=== PATIENT | male | born 1965 | race Caucasian/White ===

== ENCOUNTER → 2016-10-06 | Outpatient (CLI) | payer OTHER ==
[~2016-10-06] MED LIST: BACI500O61 TOPICAL; CEPH-460 PO; CYCL1TAB29 PO; METH2.5T PO; NAPR250T PO; PRED10 PO; PRED5TAB PO; TUBE5INJ2 I-DERMAL; Z.0.NO CURRENT MEDS
[2016-10-06 10:11] LABS: AUTOMATED NEUTROPHIL # 10.3 TH/MM3 (1.8-7.7); BASOPHIL # 0.1 TH/MM3 (0-0.2); BASOPHIL % 0.4 % (0.0-2.0); EOSINOPHIL # 0.1 TH/MM3 (0-0.4); EOSINOPHIL % 0.6 % (0.0-4.0); HEMATOCRIT 38.5 % (39.0-51.0); HEMO FLAGS DIFF FINAL; LYMPH % 21.1 % (9.0-44.0); LYMPHOCYTE # 3.1 TH/MM3 (1.0-4.8); MEAN CELL VOLUME 82.5 FL (80.0-100.0); MEAN CORPUSCULAR HEMOGLOBIN 27.3 PG (27.0-34.0); MEAN CORPUSCULAR HGB CONC 33.1 % (32.0-36.0); MONO % 8.7 % (0.0-8.0); NEUT % 69.2 % (16.0-70.0); PLATELET COUNT 408 TH/MM3 (150-450); RED BLOOD COUNT 4.66 MIL/MM3 (4.50-5.90); RED CELL DISTRIBUTION WIDTH 15.9 % (11.6-17.2); WHITE BLOOD COUNT 14.9 TH/MM3 (4.0-11.0)
[2016-10-06 10:46] LABS: ALKALINE PHOSPHATASE 69 U/L (45-117); ALT (GPT) 21 U/L (12-78); ANION GAP 7 MEQ/L (5-15); AST (GOT) 15 U/L (15-37); BICARBONATE 25.8 MEQ/L (21.0-32.0); BLOOD UREA NITROGEN 18 MG/DL (7-18); CHLORIDE 104 MEQ/L (98-107); GLOMERULAR FILTRATION RATE 98 ML/MIN (>89); GLUCOSE,FASTING 77 MG/DL (74-99); LDL CHOLESTEROL 70 MG/DL (0-99); POTASSIUM 3.9 MEQ/L (3.5-5.1); SODIUM (NA) 137 MEQ/L (136-145); TOTAL BILIRUBIN ADULT 0.8 MG/DL (0.2-1.0)
== END ==
LOC: CLAB 09:46
PROVIDERS: ATTEND Nurse Practitioner Family
DX: R53.83 Other fatigue (principal); M25.50 Pain in unspecified joint
CPT/HCPCS: 36415; 80053; 80061; 84443; 85025; 86038; 86140; 86430

== ENCOUNTER → 2016-10-16 | Outpatient (CLI) | payer OTHER | LOC: CLAB 11:09 | PROVIDERS: ATTEND Nurse Practitioner Family | DX: M06.9 Rheumatoid arthritis, unspecified (principal) | CPT/HCPCS: 36415; 80074; 82607; 82746 ==

== ENCOUNTER → 2016-10-22 | Outpatient (CLI) | payer OTHER ==
[~2016-10-22] MED LIST changes: -TUBE5INJ2 I-DERMAL
[2016-10-22 15:19] LABS: HEPATITIS B SURFACE ANTIBODY GREATER THAN 150 mIU/mL
== END ==
LOC: CLAB 13:06
PROVIDERS: ATTEND Nurse Practitioner Family
DX: R76.8 Other specified abnormal immunological findings in serum (principal)
CPT/HCPCS: 36415; 86317; 86704; 87340; 87350

== ENCOUNTER 2016-11-17 07:07 | Emergency (ER) | payer OTHER ==
[~2016-11-17] VITALS: Ht 172.7 cm; Wt 81.5 kg
[~2016-11-17 07:07] MED LIST changes: -BACI500O61 TOPICAL; -CEPH-460 PO; -PRED10 PO
[2016-11-17 07:09] VITALS: BP 145/77; PULSE 88; RESP 17; TEMP 98.1; O2SAT 98
[2016-11-17] MEDS ORDERED: PRED5TAB PO (07:36)
--- NOTE | 2016-11-17 07:37 | PD ---
HPI Chief Complaint: Medication Refill Request Time Seen by Provider: 07:34 Travel History International Travel<30 days: No Contact w/Intl Traveler<30days: No Traveled to known affect area: No History of Present Illness HPI 51-year-old male presents to the emergency department requesting a medication refill on prednisone 7.5 milligrams twice daily for his rheumatoid arthritis. He has been without his medication for 24 hours. He says he is flaring up and has pain all over. He is also requesting an injection for Toradol for pain. His primary care provider is Dr. Martinez at the [facility]. He says he can go straight there from here. He says he called to be seen in the clinic but nobody is returned a phone calls. He has no other medical complaints. He denies fever, chills, nausea, vomiting. Allergies to shellfish. History of rheumatoid arthritis. No other modifying factors or associated signs and symptoms. 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 No noted joints that are erythematous. No signs of septic joints. HEAD: Atraumatic. Normocephalic. EYES: Pupils equal and round. No scleral icterus. No injection or drainage. ENT: Mucosa pink and moist. Airway patent. NECK: Trachea midline. CARDIOVASCULAR: Regular rate. RESPIRATORY: No accessory muscle use. GASTROINTESTINAL: Flat. MUSCULOSKELETAL: No obvious deformities. No clubbing. No cyanosis. No edema. NEUROLOGICAL: Awake and alert. Oriented 3. No obvious cranial nerve deficits. Motor grossly within normal limits. Normal speech. PSYCHIATRIC: Appropriate mood and affect; insight and judgment normal. Data Data Last Documented VS Vital Signs Date Time Temp Pulse Resp B/P Pulse Ox O2 Delivery O2 Flow Rate FiO2 11/17/16 07:09 98.1 88 17 145/77 98 Orders Prednisone (Deltasone) (11/17/16 07:45) Ketorolac Inj (Toradol Inj) (11/17/16 07:45) [facility] Medical Decision Making Medical Screen Exam Complete: Yes Emergency Medical Condition: Yes Medical Record Reviewed: Yes Differential Diagnosis Medication refill, pain control, malingering Narrative Course 51-year-old male requesting medication refill on prednisone for rheumatoid arthritis. He's been without his medication for 24 hours and is having a flareup of pain. He is also requesting a Toradol injection. Prescribed a week' s worth of prednisone. Toradol and prednisone 10 mg ordered and administered in the ER. Prednisone 7.5 mg twice a day prescribed for home. Instructed patient to follow up with the community clinic and he verbalized understanding agreement. He says he is going straight to the community clinic after being discharged from the ER. Patient verbalizes understanding and agreement with treatment plan. Patient is medically cleared and stable for discharge. Discussed reasons to return to the emergency department. Instructed patient to follow up with primary care provider. Patient agrees with treatment plan. The patients vital signs are stable and the patient is stable for outpatient follow- up and treatment. Patient discharged home, stable and in no acute distress. Diagnosis Primary Impression: Medication refill Additional Impression: Rheumatoid arthritis Qualified Code: M06.9 - Rheumatoid arthritis, involving unspecified site, unspecified rheumatoid factor presence Referrals: Primary Care Physician Patient Instructions: General Instructions, Rheumatoid Arthritis (ED) Departure Forms: Tests/Procedures, Work Release Enter return to work date: Nov 18, 2016 Additional Instructions: Take medications as prescribed. Follow-up with primary care provider Med/Other Pt SpecificInfo: Prescription(s) given Scripts Prednisone 5 Mg Tab7.5 Mg PO BID 7 Days Ref 0 Take 1 and 1/2 tab twice a day Prov:Rima Anne 11/17/16 Disposition: 01 DISCHARGE HOME Condition: Stable Rima Anne Nov 17, 2016 07:37
[2016-11-17] MEDS ORDERED: predniSONE 10 MG TAB PO ONE (07:45)
[2016-11-17] MEDS ORDERED: KETOROLAC TROMETHAMINE 60 MG/2 ML (IM) VIAL IM ONE (07:45)
[2016-11-17] MEDS ORDERED: METH2.5T PO (09:42)
[2016-11-17] MEDS ORDERED: PRED10 PO (09:42)
[2016-12-04] MEDS ORDERED: PRED10 PO (08:45)
[2016-12-23] MEDS ORDERED: PRED10 PO (07:36)
[2017-01-06] MEDS ORDERED: PRED10 PO (08:38)
== END 2016-11-17 08:06 | disposition home or self-care (01) ==
LOC: NEPK 07:07
DX: M06.9 Rheumatoid arthritis, unspecified (principal); Z79.899 Other long term (current) drug therapy; F17.210 Nicotine dependence, cigarettes, uncomplicated
CPT/HCPCS: 96372; 99281; J1885; J7512

== ENCOUNTER → 2016-12-01 | Outpatient (CLI) | payer OTHER ==
[~2016-12-01] MED LIST changes: +BACI500O61 TOPICAL; +CEPH-460 PO; -CYCL1TAB29 PO; +PRED10 PO; -Z.0.NO CURRENT MEDS
[2016-12-01 09:12] LABS: AUTOMATED NEUTROPHIL # 15.6 TH/MM3 (1.8-7.7); BASOPHIL % 0.1 % (0.0-2.0); EOSINOPHIL % 0.1 % (0.0-4.0); HEMATOCRIT 40.4 % (39.0-51.0); HEMO FLAGS DIFF FINAL; LYMPH % 10.5 % (9.0-44.0); LYMPHOCYTE # 1.9 TH/MM3 (1.0-4.8); MEAN CELL VOLUME 82.6 FL (80.0-100.0); MEAN CORPUSCULAR HEMOGLOBIN 27.1 PG (27.0-34.0); MEAN CORPUSCULAR HGB CONC 32.8 % (32.0-36.0); MONO % 3.7 % (0.0-8.0); NEUT % 85.6 % (16.0-70.0); PLATELET COUNT 386 TH/MM3 (150-450); RED BLOOD COUNT 4.88 MIL/MM3 (4.50-5.90); RED CELL DISTRIBUTION WIDTH 16.3 % (11.6-17.2); WHITE BLOOD COUNT 18.2 TH/MM3 (4.0-11.0)
[2016-12-01 10:01] LABS: BICARBONATE 25.8 MEQ/L (21.0-32.0); POTASSIUM 4.3 MEQ/L (3.5-5.1)
== END ==
LOC: CLAB 08:43
PROVIDERS: ATTEND Nurse Practitioner Family
DX: M06.9 Rheumatoid arthritis, unspecified (principal)
CPT/HCPCS: 36415; 80048; 82607; 82746; 85025

== ENCOUNTER 2016-12-03 16:20 | Emergency (ER) | payer OTHER ==
[~2016-12-03] VITALS: Ht 172.7 cm; Wt 84.0 kg
[~2016-12-03 16:20] MED LIST changes: -BACI500O61 TOPICAL; -CEPH-460 PO
[2016-12-03 16:26] VITALS: BP 140/81; PULSE 89; RESP 15; TEMP 98.2; O2SAT 98
--- NOTE | 2016-12-03 16:43 | PD ---
HPI Chief Complaint: Injury Time Seen by Provider: 16:43 Travel History International Travel<30 days: No Contact w/Intl Traveler<30days: No Traveled to known affect area: No History of Present Illness HPI 51-year-old male presents to the emergency department for evaluation of a laceration to the posterior back of his distal right lower extremity. Patient states that he was at work when a drill fell and struck the posterior aspect of the distal right lower extremity causing a laceration. Reports mild pain at the site. Denies any focal deficits or weakness. States he is up-to-date on his tetanus vaccination. No other symptoms to report. 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 , on rehab program ) Allergies-Medications (Allergen,Severity, Reaction): Coded Allergies: Shellfish (Verified Allergy, Intermediate, 12/03/16) Reported Meds & Prescriptions Reported Meds & Active Scripts Active Bacitracin 500 Unit/Gm Oint 1 Applic TOPICAL BID Keflex (Cephalexin) 500 Mg Cap 500 Mg PO Q6H 5 Days Prednisone 10 Mg Tab 10 Mg PO BID Methotrexate 2.5 Mg Tab 7.5 Mg PO Q7D Prednisone 5 Mg Tab 7.5 Mg PO BID 7 Days Take 1 and 1/2 tab twice a day Naproxen 250 Mg Tab 250 Mg PO BID Review of Systems Except as stated in HPI: all other systems reviewed are Neg Physical Exam Narrative GENERAL: Well-nourished, well-developed patient, ambulatory no acute distress SKIN: Focused skin assessment warm/dry. 8 cm V-shaped laceration/skin flap on the posterior aspect of the right distal lower extremity. Area HEAD: Normocephalic. EYES: No scleral icterus. No injection or drainage. NECK: Supple, trachea midline. No JVD or lymphadenopathy. CARDIOVASCULAR: Regular rate and rhythm without murmurs, gallops, or rubs. RESPIRATORY: Breath sounds equal bilaterally. No accessory muscle use. MUSCULOSKELETAL: No cyanosis, or edema. Dictation intact distal extremity. No deformity. Distal pulses are palpable. BACK: Nontender without obvious deformity. No CVA tenderness. t Data Data Last Documented VS Vital Signs Date Time Temp Pulse Resp B/P Pulse Ox O2 Delivery O2 Flow Rate FiO2 12/03/16 16:26 98.2 89 15 140/81 98 Orders Lidocai-Epi 1%-1:100,000 Inj (Xylocaine- (12/03/16 16:45) MDM Medical Decision Making Medical Screen Exam Complete: Yes Emergency Medical Condition: Yes Medical Record Reviewed: Yes Differential Diagnosis Laceration superficial versus deep versus skin avulsion versus abrasion Narrative Course 51-year-old male presents to emergency department for evaluation of the laceration to the posterior aspect of the right distal lower extremity. Laceration is cleansed and approximated without difficulty. Patient will be started on oral antibiotics as he has RA and is on chronic steroids. Patient is counseled on care. He agrees to return immediately with any acute worsening of symptoms. Procedures Procedure Narrative LACERATION LOCATION: Right distal lower extremity LENGTH: 8 cm V-shaped NUMBER OF STITCHES/LAWRENCE: 5 horizontal mattress sutures REPAIR: The area of the laceration was prepped with Betadine and sterilely draped. The laceration was infiltrated with 1% lidocaine with epinephrine. The wound was copiously irrigated and explored without evidence of foreign body , tendon injury or neurovascular injury. The wound was closed using 4-0 Prolene. This was a single layer repair. A sterile dressing was applied. The patient was advised to keep the dressing clean and dry. Patient tolerated the procedure well. Diagnosis Primary Impression: Laceration of lower leg Qualified Code: S81.811A - Laceration of lower leg, right, initial encounter Referrals: Primary Care Physician Patient Instructions: General Instructions, Laceration (ED) Additional Instructions: Keep wound clean and dry Sutures are to be removed in 10-14 days. This can be done at the emergency department or at your primary care provider's office Elevate to reduce pain and swelling Tylenol and/or ibuprofen as directed on the package as needed for pain Return immediately with any acute worsening of symptoms Med/Other Pt SpecificInfo: Prescription(s) given Scripts Bacitracin 500 Unit/Gm Oint1 Applic TOPICAL BID #1 TUBE Prov:Georgia Alvarenga 12/03/16 Cephalexin (Keflex)500 Mg Acj008 Mg PO Q6H 5 Days Ref 0 Prov:Georgia Alvarenga 12/03/16 Disposition: 01 DISCHARGE HOME Condition: Stable Georgia Alvarenga Dec 03, 2016 16:43
[2016-12-03] MEDS ORDERED: LIDOCAINE 1%/EPINEPHrine 1:100,000 SOLN 20 ML VIAL INFIL ONE (16:45)
[2016-12-03] MEDS ORDERED: BACI500O61 TOPICAL (17:27)
[2016-12-03] MEDS ORDERED: CEPH-460 PO (17:27)
[2016-12-04] MEDS ORDERED: PRED10 PO (08:45)
[2016-12-23] MEDS ORDERED: PRED10 PO (07:36)
[2017-01-06] MEDS ORDERED: PRED10 PO (08:38)
== END 2016-12-03 17:45 | disposition home or self-care (01) ==
LOC: NEPD 16:20
DX: S81.811A Laceration without foreign body, right lower leg, initial encounter (principal); F17.210 Nicotine dependence, cigarettes, uncomplicated; F14.10 Cocaine abuse, uncomplicated; W29.8XXA Contact with other powered hand tools and household machinery, initial encounter; Y92.89 Other specified places as the place of occurrence of the external cause; Y99.0 Civilian activity done for income or pay
CPT/HCPCS: 12004

== ENCOUNTER 2018-01-19 02:05 | Emergency (ER) | payer OTHER ==
[~2018-01-19 02:05] MED LIST changes: -METH2.5T PO; -NAPR250T PO; +NAPR250T4 PO; -PRED5TAB PO
== END 2018-01-19 02:15 | disposition left against medical advice (07) ==
LOC: NED 02:05
DX: R09.89 Other specified symptoms and signs involving the circulatory and respiratory systems (principal)
CPT/HCPCS: 99281

== ENCOUNTER 2018-05-10 09:01 | Observation (INO) ==
--- NOTE | 2018-05-10 09:25 | ED ---
HPI General Chief Complaint: Respiratory Symptoms Stated Complaint: Sob/Abd Pain Time Seen by Provider: 05/10/18 09:09 Source: patient and EMS Mode of arrival: ambulatory Limitations: no limitations History of Present Illness 52-year-old male patient with history of rheumatoid arthritis, left arm DVT followed by PE, is supposed to be on prednisone and Eliquis but he had ran out of both about a week ago. He presents to the ER today for several days history of worsening dyspnea on exertion, shortness of breath, upper abdominal discomfort, back discomfort, and called EMS. He denies any fevers, vomiting, or other symptoms.He states that he is just feeling more generally weak. Related Data Home Medications Medication Instructions Recorded Confirmed apixaban [Eliquis] 2.5 mg PO DAILY 05/10/18 05/10/18 prednisone 15 mg PO BID 05/10/18 05/10/18 Allergies Allergy/AdvReac Type Severity Reaction Status Date / Time shellfish derived Allergy Intermediate Swelling Verified 05/10/18 09:13 Review of Systems ROS: all other systems reviewed are negative PMFSH History History Provided By: Patient Medical History Medical History Pulmonary embolism (Acute) Alcohol abuse (Acute) Cocaine abuse (Acute) DVT (deep venous thrombosis) (Acute) Depression (Acute) Heroin abuse (Acute) Septic shock (Acute) Social History Social History Substance History: Active Abuse Second Hand Smoke Exposure: Yes Smoking Status: Current every day smoker Tobacco Type: Cigarettes How Often Do You Have a Drink Containing Alcohol: 4 or more times a week Recent Travel in [facility] within the Last 8 Weeks: No Recent Out of Country Travel within the Last 8 Weeks: No Exam Narrative Exam Narrative: GENERAL: Well-developed middle-age male patient currently and moderate respiratory distress in the ER. Awake and oriented x3. SKIN: Focused skin assessment warm/dry. HEAD: Atraumatic. Normocephalic. EYES: Pupils equal and round. No scleral icterus. No injection or drainage. ENT: No nasal bleeding or discharge. Mucous membranes pink and moist. NECK: Trachea midline. No JVD. CARDIOVASCULAR: Regular rate and rhythm. No murmur appreciated. RESPIRATORY:Moderate accessory muscle use. Clear to auscultation. Breath sounds equal bilaterally. GASTROINTESTINAL: Abdomen soft, non-tender, nondistended. Hepatic and splenic margins not palpable. MUSCULOSKELETAL: No obvious deformities. No clubbing. No cyanosis. No edema. NEUROLOGICAL: Awake and alert. No obvious cranial nerve deficits. Motor grossly within normal limits. Normal speech. PSYCHIATRIC: Appropriate mood and affect; insight and judgment normal. Course Initial Documented Vital Signs Temperature 97.8 F 05/10/18 09:07 Pulse Rate 113 H 05/10/18 09:07 Respiratory Rate 28 H 05/10/18 09:07 Blood Pressure 139/99 H 05/10/18 09:07 Pulse Oximetry 98 05/10/18 09:07 Last Documented Vital Signs Temperature 97.8 F 05/10/18 09:07 Pulse Rate 113 H 05/10/18 09:07 Respiratory Rate 28 H 05/10/18 09:07 Blood Pressure 139/99 H 05/10/18 09:07 Pulse Oximetry 98 05/10/18 09:15 Medical Decision Making MDM Narrative Medical decision making narrative: Patient is tachycardic, appears to be sinus, no signs of acute ST changes. Lab work shows leukocytosis and lactate elevation , and there is concern of sepsis. IV fluids were given in the ER. Cultures are taken. And at this point, considering the the patient is not CAT scans were done to rule out PE, it did not show PE. CT the abdomen did show some signs of bladder wall thickening and there is suspicion that he may have some underlying UTI causing sepsis. Case is discussed with Dr. Jimenez for admission for further treatment. Medical Screen Exam Complete: Yes Emergency Medical Condition: Yes Differential Diagnosis Differential Diagnosis: PE versus pneumonia versus COPD exacerbation versus dysrhythmias Lab Data Lab results reviewed: Yes I reviewed the patient's lab results. Result diagrams: 05/10/18 09:14 05/10/18 09:14 Lab Results 05/10/18 05/10/18 05/10/18 Range/Units 09:14 09:14 09:14 WBC 12.8 H (4.0-11.0) th/mm3 RBC 5.15 (4.50-5.90) mil/mm3 Hgb 13.7 (13.0-17.0) gm/dL Hct 41.9 (39.0-51.0) % MCV 81.4 (80.0-100.0) fL MCH 26.5 L (27.0-34.0) pg MCHC 32.6 (32.0-36.0) % RDW 17.9 H (11.6-17.2) % Plt Count 395 (150-450) th/mm3 MPV 7.8 (7.0-11.0) fL Neut % (Auto) 66.6 (16.0-70.0) % Lymph % (Auto) 22.9 (9.0-44.0) % Castro % (Auto) 8.6 H (0.0-8.0) % Eos % (Auto) 1.2 (0.0-4.0) % Baso % (Auto) 0.7 (0.0-2.0) % Neut # (Auto) 8.5 H (1.8-7.7) th/mm3 Lymph # (Auto) 2.9 (1.0-4.8) th/mm3 Castro # (Auto) 1.1 H (0.0-0.9) th/mm3 Eos # (Auto) 0.2 (0.0-0.4) th/mm3 Baso # (Auto) 0.1 (0.0-0.2) th/mm3 WBC Differential . Differential Comment Auto diff final PT (9.8-11.6) sec INR Ratio APTT (24.3-30.1) sec D-Dimer Quant (PE/DVT) 1.78 H (0.00-0.50) mg/L FEU Sodium 135 L (136-145) meq/L Potassium 3.7 (3.5-5.1) meq/L Chloride 104 (98-107) meq/L Carbon Dioxide 21.9 (21.0-32.0) meq/L Anion Gap 9 (5-15) meq/L BUN 2 L (7-18) mg/dL Creatinine 0.68 (0.60-1.30) mg/dL Estimated GFR Greater than 89 (>89) mL/min Random Glucose 91 (74-106) mg/dL Lactic Acid (0.4-2.0) mmol/L Calcium 8.1 L (8.5-10.1) mg/dL Total Bilirubin 0.4 (0.2-1.0) mg/dL AST 14 L (15-37) U/L ALT 19 (12-78) U/L Alkaline Phosphatase 103 (45-117) U/L Troponin I Less than 0.02 L (0.02-0.05) ng/mL Total Protein 6.8 (6.4-8.2) g/dL Albumin 2.6 L (3.4-5.0) g/dL Salicylates (2.8-20.0) mg/dL Acetaminophen (10.0-30.0) mcg/mL 05/10/18 05/10/18 05/10/18 Range/Units 09:14 09:14 09:14 WBC (4.0-11.0) th/mm3 RBC (4.50-5.90) mil/mm3 Hgb (13.0-17.0) gm/dL Hct (39.0-51.0) % MCV (80.0-100.0) fL MCH (27.0-34.0) pg MCHC (32.0-36.0) % RDW (11.6-17.2) % Plt Count (150-450) th/mm3 MPV (7.0-11.0) fL Neut % (Auto) (16.0-70.0) % Lymph % (Auto) (9.0-44.0) % Castro % (Auto) (0.0-8.0) % Eos % (Auto) (0.0-4.0) % Baso % (Auto) (0.0-2.0) % Neut # (Auto) (1.8-7.7) th/mm3 Lymph # (Auto) (1.0-4.8) th/mm3 Castro # (Auto) (0.0-0.9) th/mm3 Eos # (Auto) (0.0-0.4) th/mm3 Baso # (Auto) (0.0-0.2) th/mm3 WBC Differential Differential Comment PT 10.3 (9.8-11.6) sec INR 1.0 Ratio APTT 23.1 L (24.3-30.1) sec D-Dimer Quant (PE/DVT) (0.00-0.50) mg/L FEU Sodium (136-145) meq/L Potassium (3.5-5.1) meq/L Chloride (98-107) meq/L Carbon Dioxide (21.0-32.0) meq/L Anion Gap (5-15) meq/L BUN (7-18) mg/dL Creatinine (0.60-1.30) mg/dL Estimated GFR (>89) mL/min Random Glucose (74-106) mg/dL Lactic Acid (0.4-2.0) mmol/L Calcium (8.5-10.1) mg/dL Total Bilirubin (0.2-1.0) mg/dL AST (15-37) U/L ALT (12-78) U/L Alkaline Phosphatase (45-117) U/L Troponin I (0.02-0.05) ng/mL Total Protein (6.4-8.2) g/dL Albumin (3.4-5.0) g/dL Salicylates 6.0 (2.8-20.0) mg/dL Acetaminophen Less than 2.0 L (10.0-30.0) mcg/mL 05/10/18 Range/Units 09:26 WBC (4.0-11.0) th/mm3 RBC (4.50-5.90) mil/mm3 Hgb (13.0-17.0) gm/dL Hct (39.0-51.0) % MCV (80.0-100.0) fL MCH (27.0-34.0) pg MCHC (32.0-36.0) % RDW (11.6-17.2) % Plt Count (150-450) th/mm3 MPV (7.0-11.0) fL Neut % (Auto) (16.0-70.0) % Lymph % (Auto) (9.0-44.0) % Castro % (Auto) (0.0-8.0) % Eos % (Auto) (0.0-4.0) % Baso % (Auto) (0.0-2.0) % Neut # (Auto) (1.8-7.7) th/mm3 Lymph # (Auto) (1.0-4.8) th/mm3 Castro # (Auto) (0.0-0.9) th/mm3 Eos # (Auto) (0.0-0.4) th/mm3 Baso # (Auto) (0.0-0.2) th/mm3 WBC Differential Differential Comment PT (9.8-11.6) sec INR Ratio APTT (24.3-30.1) sec D-Dimer Quant (PE/DVT) (0.00-0.50) mg/L FEU Sodium (136-145) meq/L Potassium (3.5-5.1) meq/L Chloride (98-107) meq/L Carbon Dioxide (21.0-32.0) meq/L Anion Gap (5-15) meq/L BUN (7-18) mg/dL Creatinine (0.60-1.30) mg/dL Estimated GFR (>89) mL/min Random Glucose (74-106) mg/dL Lactic Acid 2.9 H (0.4-2.0) mmol/L Calcium (8.5-10.1) mg/dL Total Bilirubin (0.2-1.0) mg/dL AST (15-37) U/L ALT (12-78) U/L Alkaline Phosphatase (45-117) U/L Troponin I (0.02-0.05) ng/mL Total Protein (6.4-8.2) g/dL Albumin (3.4-5.0) g/dL Salicylates (2.8-20.0) mg/dL Acetaminophen (10.0-30.0) mcg/mL Imaging Data Attestation: I personally reviewed and interpreted this imaging study as follows : Radiologist's impression: Chest X-Ray 05/10/18 09:09 CONCLUSION: Negative for an acute process Abdomen/Pelvis CT 05/10/18 10:37 CONCLUSION: 1. Uncomplicated colonic diverticulosis is noted. 2. Calcified nonobstructing bilateral renal calculi. 3. Thick-walled urinary bladder with right-sided bladder diverticulum. 4. Tiny calcification within left side of the urinary bladder consistent with probable bladder calculus. 5. 10 mm right renal cyst. 6. Multiple compression deformities involving the lumbar and lower thoracic spine with worst compression deformity identified at T10. 7. Degenerative changes throughout the thoracolumbar spine. 8. Multilevel spinal stenoses within the lumbar spine. 9. Small umbilical hernia containing only fat. Chest CTA 05/10/18 10:37 CONCLUSION: 1. No evidence of pulmonary embolism. 2. Minimal scattered atelectasis and/or scarring. 3. Tiny calcified granuloma within the left upper lobe. 4. Multiple compression deformities involving the thoracic spine with kyphosis of the lower thoracic spine related to the most severe compression deformity. 5. Degenerative changes throughout the thoracic spine. Discharge Plan Discharge Disposition Patient Disposition: 30 Still Patient Discharge Condition Condition: Stable Discharge Details Anticipated Discharge Date: 05/10/18 Diagnosis: Sepsis Physicians Team ED Provider: Marlyn Aguillon Primary Care Provider: UNKNOWN, Rxs /Orders / Referrals /Forms Prescriptions: No Action apixaban [Eliquis] 2.5 mg Tablet 2.5 mg PO DAILY RF: 0 prednisone 5 mg Tablet 15 mg PO BID RF: 0 Status ED Status: With Doctor
[2018-05-10 09:57] LABS: Baso # (Auto) 0.1 th/mm3 (0.0-0.2); Baso % (Auto) 0.7 % (0.0-2.0); Eos # (Auto) 0.2 th/mm3 (0.0-0.4); Eos % (Auto) 1.2 % (0.0-4.0); Hematocrit 41.9 % (39.0-51.0); Hemoglobin 13.7 gm/dL (13.0-17.0); Lymph # (Auto) 2.9 th/mm3 (1.0-4.8); Lymph % (Auto) 22.9 % (9.0-44.0); Mean Corpuscular HGB Conc 32.6 % (32.0-36.0); Mean Corpuscular Hemoglobin 26.5 pg (27.0-34.0); Mean Corpuscular Volume 81.4 fL (80.0-100.0); Mean Platelet Volume 7.8 fL (7.0-11.0); Mono # (Auto) 1.1 th/mm3 (0.0-0.9); Mono % (Auto) 8.6 % (0.0-8.0); Neut # (Auto) 8.5 th/mm3 (1.8-7.7); Neut % (Auto) 66.6 % (16.0-70.0); Platelet Count 395 th/mm3 (150-450); Red Blood Count 5.15 mil/mm3 (4.50-5.90); Red Cell Distribution Width 17.9 % (11.6-17.2); White Blood Count 12.8 th/mm3 (4.0-11.0)
--- NOTE | 2018-05-10 10:01 | XR ---
EXAM DATE: 05/10/2018 9:09 AM EDT AGE/SEX: 52 years / Male INDICATIONS: Short of breath. CLINICAL DATA: This is the patient's initial encounter. Patient reports that signs and symptoms have been present for 1 day and indicates a pain score of 0/10. MEDICAL/SURGICAL HISTORY: None. None. COMPARISON: No prior exams available for comparison. FINDINGS: A single AP view of the chest demonstrates the lungs to be symmetrically aerated without evidence of mass, infiltrate or effusion. The cardiomediastinal contours are unremarkable. Osseous structures a re intact. CONCLUSION: Negative for an acute process Electronically signed by: Satnam Bowser MD 05/10/2018 10:00 AM EDT
[2018-05-10 10:20] LABS: Alanine Aminotransferase 19 U/L (12-78); Albumin 2.6 g/dL (3.4-5.0); Anion Gap 9 meq/L (5-15); Aspartate Aminotransferase 14 U/L (15-37); Blood Urea Nitrogen 2 mg/dL (7-18); Calcium 8.1 mg/dL (8.5-10.1); Carbon Dioxide 21.9 meq/L (21.0-32.0); Chloride 104 meq/L (98-107); Glomerular Filtration Rate Greater Than 89 mL/min (>89); Glucose,Random 91 mg/dL (74-106); Potassium 3.7 meq/L (3.5-5.1); Sodium 135 meq/L (136-145)
[2018-05-10 10:24] LABS: Alkaline Phosphatase 103 U/L (45-117); Total Protein 6.8 g/dL (6.4-8.2)
[2018-05-10 10:28] LABS: Activated Partial Thrombo Time 23.1 sec (24.3-30.1); Prothrombin Time 10.3 sec (9.8-11.6)
--- NOTE | 2018-05-10 11:36 | CT ---
EXAM DATE: 05/10/2018 10:54 AM EDT AGE/SEX: 52 years / Male INDICATIONS: Bloating shortness of breath CLINICAL DATA: This is the patient's initial encounter. Patient reports that signs and symptoms have been present for 1 day and indicates a pain score of 3/10. MEDICAL/SURGICAL HISTORY: Deep venous thrombosis. Septic shock None. RADIATION DOSE: 17.16 CTDI (mGy) COMPARISON: No prior exams available for comparison. TECHNIQUE: Volumetric scanning was performed using a multi-row detector CT scanner during bolus infu justin of 74 ml Omnipaque 350 (iohexol) nonionic water-soluble contrast as a cumulative dose for multi ple exams. The data was post processed with a variety of visualization algorithms including full volu me maximum intensity projection and sliding thin slab reformation. Using automated exposure control a nd adjustment of the mA and/or kV according to patient size, radiation dose was kept as low as reason ably achievable to obtain optimal diagnostic quality images. DICOM format image data is available el ectronically for review and comparison. FINDINGS: Pulmonary Arteries: No filling defects are seen in the pulmonary arteries out to the subsegmental ve ssels. The left and right pulmonary arteries are normal in diameter. Lung: No infiltrates seen. Minimal scattered atelectasis and/or scarring is noted. Tiny calcified gr anuloma is noted within the left upper lobe. Effusion: None. Mediastinum: No evidence of mediastinal or hilar adenopathy. Other: The axilla is unremarkable. Multiple compression deformities are noted throughout the thoraci c spine. Kyphosis of the lower thoracic spine is noted. Degenerative changes are noted throughout the thoracic spine also. CONCLUSION: 1. No evidence of pulmonary embolism. 2. Minimal scattered atelectasis and/or scarring. 3. Tiny calcified granuloma within the left upper lobe. 4. Multiple compression deformities involving the thoracic spine with kyphosis of the lower thoracic spine related to the most severe compression deformity. 5. Degenerative changes throughout the thoracic spine. Electronically signed by: Wyatt Degroot MD 05/10/2018 11:34 AM EDT
--- NOTE | 2018-05-10 11:44 | CT ---
EXAM DATE: 05/10/2018 10:54 AM EDT AGE/SEX: 52 years / Male INDICATIONS: Abdomen pain distention CLINICAL DATA: This is the patient's initial encounter. Patient reports that signs and symptoms have been present for 1 day and indicates a pain score of 3/10. MEDICAL/SURGICAL HISTORY: Deep venous thrombosis. Septic shock None. ORAL CONTRAST: No oral contrast ingested. RADIATION DOSE: 10.01 CTDI (mGy) COMPARISON: No prior exams available for comparison. TECHNIQUE: Multiple contiguous axial images were obtained through the abdomen and pelvis following b olus infusion of 74 ml Omnipaque 350 (iohexol) nonionic water-soluble contrast as a single exam dos e. No oral contrast ingested. Using automated exposure control and adjustment of the mA and/or kV ac cording to patient size, radiation dose was kept as low as reasonably achievable to obtain optimal di agnostic quality images. DICOM format image data is available electronically for review and comparis on. FINDINGS: Lower Lungs: The visualized lower lungs are clear. Liver: The liver has a homogeneous density without space-occupying lesion. There is no dilation of th e biliary tree. Spleen: Homogeneous density without enlargement. Pancreas: Unremarkable without mass or calcification. Kidneys: Normal in size and shape. No evidence of mass or hydronephrosis. Calcified nonobstructing b ilateral renal calculi are noted. The largest on the left measures 6 mm and the largest on the right measures 5 mm. There is a 10 mm simple cyst within the right kidney. Adrenal Glands: Unremarkable. Aorta: The aorta and proximal iliac vessels are grossly unremarkable without aneurysmal dilation. Bowel/Mesentery: Uncomplicated colonic diverticulosis is noted. No acute diverticulitis is noted. Abdominal Wall: Small umbilical hernia containing only fat is noted. Retroperitoneum: No evidence of adenopathy in the retrocrural, para-aortic, or deep pelvic regions. Bladder: The wall of the urinary bladder is diffusely thickened. There is a bladder diverticulum ext ending from the right lateral aspect of the urinary bladder. There is a tiny calcification within the left side of the urinary bladder consistent with probable tiny calculus. Reproductive Organs: No abnormal masses or calcifications seen. Inguinal: The inguinal region is unremarkable without evidence of adenopathy. Bony Structures: Multiple compression fractures are noted throughout the lumbar and lower thoracic s pine. Most severe compression fracture is noted at T10. These are likely chronic in age. Degenerative changes are noted throughout the thoracolumbar spine. Multilevel spinal stenoses are noted within th e lumbar spine. CONCLUSION: 1. Uncomplicated colonic diverticulosis is noted. 2. Calcified nonobstructing bilateral renal calculi. 3. Thick-walled urinary bladder with right-sided bladder diverticulum. 4. Tiny calcification within left side of the urinary bladder consistent with probable bladder calcu irving. 5. 10 mm right renal cyst. 6. Multiple compression deformities involving the lumbar and lower thoracic spine with worst david justin deformity identified at T10. 7. Degenerative changes throughout the thoracolumbar spine. 8. Multilevel spinal stenoses within the lumbar spine. 9. Small umbilical hernia containing only fat. Electronically signed by: Wyatt Degroot MD 05/10/2018 11:43 AM EDT
[2018-05-10] MEDS ORDERED: Sod Chloride 0.9% Inj 1,000 ML IV.SIG SCH (12:00)
[2018-05-10 13:17] LABS: Bilirubin,Urine Negative (Negative); Clarity,Urine Clear (Clear); Color,Urine Yellow (Yellw/Straw); Glucose,Urine (UA) Negative (Negative); Leukocyte Esterase,Urine Negative (Negative); Mucus,Urine Few /lpf (Occasional); Nitrite,Urine Negative (Negative); Squamous Epithelial Cell,Urine <1 /hpf (0-5)
[2018-05-10 13:21] LABS: Amphetamine Screen,Urine Neg (Neg); Barbiturate Screen,Urine Neg (Neg); Cannabinoid Screen,Urine Neg (Neg); Cocaine Screen,Urine Pos (Neg)
[2018-05-10 13:30] LABS: Opiate Screen,Urine Neg (Neg)
[2018-05-10] MEDS ORDERED: Piperacil/Tazo 3.375 GM Premix 50 ML IV.SIG SCH (16:00)
--- NOTE | 2018-05-10 16:23 | ECG ---
Date Performed: 05/10/2018 Time Performed: 09:18:03 PTAGE: 52 years EKG: SINUS TACHYCARDIA MARKED LEFT AXIS DEVIATION ABNORMAL ECG PREVIOUS TRACING : 02/27/2018 @00.56 Since the previous tracing, no significant change noted DOCTOR: Luisito Ayers Interpretating Date/Time 05/10/2018 16:22:41
[2018-05-10] MEDS ORDERED: Bisacodyl 10 MG Supp RECTAL PRN (17:43)
[2018-05-10] MEDS: Sod Chloride 0.9% Inj 1,000 ML IV.CONT SCH (19:03)
--- NOTE | 2018-05-10 19:43 | P.HPIM ---
History of Present Illness Primary Care Physician: UNKNOWN History of Present Illness: 52-year-old male with a history of rheumatoid arthritis, chronic prednisone who presents with a one-week history of bilateral lower extremity weakness, severe constant midline back pain as well as severe constant abdominal pain with shortness of breath. He says he smoked crack 4 days ago, and was planning to lie down in the hotel room and not eat anything until he . He denies any dysuria, hematuria, fevers, chills. He did have some nausea with nonbloody vomiting 2 days ago. He's been Jay acted in the ER. CT chest negative for pulmonary embolism. Review of Systems All other systems reviewed negative except as stated in HPI PMFSH - History History Provided By: Patient - Medical History Medical History: Medical History (Last Reviewed 05/10/18 @ 18:42 by Daysi Rodríguez RN) Pulmonary embolism Alcohol abuse Cocaine abuse DVT (deep venous thrombosis) Depression Heroin abuse Septic shock - Surgical History Surgical History: Surgical History (Last Updated 05/10/18 @ 19:42 by Preston Jimenez MD) H/O knee surgery History of appendectomy History of tonsillectomy - Family History Family History: Family History (Last Updated 05/10/18 @ 19:42 by Preston Jimenez MD) Other Family history non-contributory - Tobacco History Second Hand Smoke Exposure: Yes Tobacco Use In Past 30 Days: Yes Smoking Status: Current every day smoker Tobacco Type: Cigarettes - Alcohol History How Often Do You Have a Drink Containing Alcohol: 4 or more times a week - Substance Use History Substance History: Active Abuse - Substance Use Type Alcohol Status: Active Route Used: By Mouth Reason for Use: Calm Down, Feels Good Heroin Status: Early Remission Route Used: Inhalation Reason for Use: Feels Good, Get High Crack/Cocaine Status: Active Route Used: Inhalation Frequency: Used for a few days about 4-5 days ago Reason for Use: Get High, Hurt Myself Comment: Patient states he used drugs because he is depressed. - Travel History Recent Travel in the [place] Within the Last 8 Weeks: No Recent Travel Out of the Country Within the Last 8 Weeks: No - Immunization History Tetanus Immunization: >5 Years Hx Influenza Vaccine This Season: Yes Medications and Allergies Active Medications: Active Medications Al Hydroxide/Mg Hydroxide (Milk Of Magnyaneli Liq) 30 ml PO Q12H PRN PRN Reason: Mild Constipation Apixaban (Eliquis) 2.5 mg PO DAILY [facility] Bisacodyl (Dulcolax Supp) 10 mg RECTAL DAILY PRN PRN Reason: SEVERE CONSITIPATION Sodium Chloride (Ns Inj) 1,000 mls @ 0 mls/hr IV.SIG BOLUS [facility] Last Infusion: 05/10/18 15:31 Dose: Infused Sodium Chloride (Ns Inj) 1,000 mls @ 100 mls/hr IV.CONT .Q10H [facility] Last Admin: 05/10/18 19:03 Dose: 100 mls/hr Lactulose (Lactulose Liq) 30 ml PO DAILY PRN PRN Reason: SEVERE CONSITIPATION Prednisone (Deltasone) 15 mg PO BID [facility] Stop: 05/15/18 20:59 Sennosides (Senokot) 17.2 mg PO Q12H PRN PRN Reason: Moderate Constipation Thiamine HCl (Vitamin B1) 200 mg PO BID [facility] Allergies Allergy/AdvReac Type Severity Reaction Status Date / Time shellfish derived Allergy Intermediate Swelling Verified 05/10/18 09:13 Home Medications Medication Instructions Recorded Confirmed Type apixaban [Eliquis] 2.5 mg PO DAILY 05/10/18 05/10/18 History prednisone 15 mg PO BID 05/10/18 05/10/18 History Exam Vital signs: Vital Signs 05/10/18 09:07 05/10/18 09:15 05/10/18 13:00 Temperature 97.8 F Pulse Rate 113 H 110 H Respiratory Rate 28 H 20 Blood Pressure 139/99 H 131/79 Pulse Oximetry 97 98 05/10/18 17:00 05/10/18 18:14 Temperature Pulse Rate 102 H 104 H Respiratory Rate 19 18 Blood Pressure 120/80 143/92 H Pulse Oximetry Intake & Output 05/10/18 05/10/18 05/11/18 06:59 18:59 06:59 Intake Total 1150 / 1150 Balance 1150 / 1150 Weight 72.575 kg Intake: IV 1150 / 1150 Zosyn 3.375 GM Premix 50 ML @ 50 / 50 100 mls/hr IV.SIG Q6H [facility] Rx#: [id number] NS Inj 1,000 ML @ Wide Open IV. 1000 / 1000 SIG BOLUS [facility] Rx#:[id number] Rocephin Inj 1,000 MG In NS Inj 100 / 100 100 ML @ 200 mls/hr IV.SIG ONCE ONE Rx#:[id number] Narrative: GENERAL: patient lying in bed. Appears uncomfortable. Alert and oriented 3. SKIN: Warm and dry. HEAD: Atraumatic. Normocephalic. EYES: Pupils equal and round. No scleral icterus. No injection or drainage. ENT: No nasal bleeding or discharge. Mucous membranes pink and moist. NECK: Trachea midline. No JVD. CARDIOVASCULAR: Regular rate and rhythm. RESPIRATORY: No accessory muscle use. Clear to auscultation. Breath sounds equal bilaterally. GASTROINTESTINAL: Abdomen soft, non-tender, nondistended. Hepatic and splenic margins not palpable. MUSCULOSKELETAL: Extremities without clubbing, cyanosis, or edema. No obvious deformities. NEUROLOGICAL: Awake and alert. No obvious cranial nerve deficits. Motor grossly within normal limits. Five out of 5 muscle strength in the arms and legs , however patient says he is weak.. Normal speech. PSYCHIATRIC: Appropriate mood and affect; insight and judgment normal. Results - Labs CBC & Chem 7: 05/10/18 09:14 05/10/18 09:14 Labs: Short CBC 05/10/18 Range/Units 09:14 WBC 12.8 H (4.0-11.0) th/mm3 Hgb 13.7 (13.0-17.0) gm/dL Hct 41.9 (39.0-51.0) % Plt Count 395 (150-450) th/mm3 BMP 05/10/18 09:14 Sodium 135 L Potassium 3.7 Chloride 104 Carbon Dioxide 21.9 BUN 2 L Creatinine 0.68 Calcium 8.1 L Cardiac Enzymes 05/10/18 Range/Units 09:14 Troponin I Less than 0.02 L (0.02-0.05) ng/mL Liver Function 05/10/18 Range/Units 09:14 Total Bilirubin 0.4 (0.2-1.0) mg/dL AST 14 L (15-37) U/L ALT 19 (12-78) U/L Alkaline Phosphatase 103 (45-117) U/L Albumin 2.6 L (3.4-5.0) g/dL Urine 05/10/18 Range/Units 12:25 Urine Color Yellow (Yellw/Straw) Urine Clarity Clear (Clear) Urine pH 6.0 (5.0-8.5) Ur Specific [place] 1.030 (1.002-1.035) Urine Protein Negative (Neg-Trace) mg/dL Urine Glucose (UA) Negative (Negative) mg/dL - Imaging Impressions Chest X-Ray 05/10/18 09:09 CONCLUSION: Negative for an acute process Abdomen/Pelvis CT 05/10/18 10:37 CONCLUSION: 1. Uncomplicated colonic diverticulosis is noted. 2. Calcified nonobstructing bilateral renal calculi. 3. Thick-walled urinary bladder with right-sided bladder diverticulum. 4. Tiny calcification within left side of the urinary bladder consistent with probable bladder calculus. 5. 10 mm right renal cyst. 6. Multiple compression deformities involving the lumbar and lower thoracic spine with worst compression deformity identified at T10. 7. Degenerative changes throughout the thoracolumbar spine. 8. Multilevel spinal stenoses within the lumbar spine. 9. Small umbilical hernia containing only fat. Chest CTA 05/10/18 10:37 CONCLUSION: 1. No evidence of pulmonary embolism. 2. Minimal scattered atelectasis and/or scarring. 3. Tiny calcified granuloma within the left upper lobe. 4. Multiple compression deformities involving the thoracic spine with kyphosis of the lower thoracic spine related to the most severe compression deformity. 5. Degenerative changes throughout the thoracic spine. Caprini VTE Risk Assessment Caprini VTE Risk Assessment: Moderate/High Risk (score >= 2) Caprini Risk Assessment Model: Point Value = 1 Point Value = 2 Point Value = 3 Point Value = 5 Age 41-60 Minor surgery BMI > 25 kg/m2 Swollen legs Varicose veins or History of unexplained or recurrent spontaneous Oral contraceptives or hormone replacement Sepsis (< 1 month) Serious lung disease, including pneumonia (< 1 month) Abnormal pulmonary function Acute myocardial infarction Congestive heart failure (< 1 month) History of inflammatory bowel disease Medical patient at bed rest Age 61-74 Arthroscopic surgery Major open surgery (> 45 min) Laparoscopic surgery (> 45 min) Malignancy Confined to bed (> 72 hours) Immobilizing plaster cast Central venous access Age >= 75 History of VTE Family history of VTE Factor V Leiden Prothrombin [id number] Lupus anticoagulant Anticardiolipin antibodies Elevated serum homocysteine Heparin-induced thrombocytopenia Other congenital or acquired thrombophilia Stroke (< 1 month) Elective arthroplasty Hip, pelvis, or leg fracture Acute spinal cord injury (< 1 month) Prophylaxis Regimen: Total Risk Factor Score Risk Level Prophylaxis Regimen 0-1 Low Early ambulation 2 Moderate Order ONE of the following: *Sequential Compression Device (SCD) *Heparin 5000 units SQ BID 3-4 Higher Order ONE of the following medications: *Heparin 5000 units SQ TID *Enoxaparin/Lovenox 40 mg SQ daily (WT < 150 kg, CrCl > 30 mL/min) *Enoxaparin/Lovenox 30 mg SQ daily (WT < 150 kg, CrCl > 10-29 mL/min) *Enoxaparin/Lovenox 30 mg SQ BID (WT < 150 kg, CrCl > 30 mL/min) AND/OR *Sequential Compression Device (SCD) 5 or more Highest Order ONE of the following medications: *Heparin 5000 units SQ TID (Preferred with Epidurals) *Enoxaparin/Lovenox 40 mg SQ daily (WT < 150 kg, CrCl > 30 mL/min) *Enoxaparin/Lovenox 30 mg SQ daily (WT < 150 kg, CrCl > 10-29 mL/min) *Enoxaparin/Lovenox 30 mg SQ BID (WT < 150 kg, CrCl > 30 mL/min) AND *Sequential Compression Device (SCD) Assessment and Plan - Plan //Bilateral lower extremity weakness over the past week //Multilevel compression fractures with multilevel spinal stenosis //Abdominal pain //Suspected thoracic radiculopathy = CT abdomen with some incidental findings including kidney stone, bladder diverticulum, however patient's abdominal pain is best explained by compression fractures/abdominal thoracic radiculopathy Neuro checks. We'll consult neurosurgery. //Suicidal ideation. Patient is Jay acted in the ER. Psychiatry assistance appreciated. //Shortness of breath. Likely secondary to thoracic pain. CT pulmonary angiogram negative. //Leukocytosis. 12.8 on admission. Could be secondary to pain/crack. //Lactic acidosis of 2.9 on admission. Resolved after IV fluids. Likely secondary to dehydration, malnutrition versus crack. We'll start thiamine supplementation //Rheumatoid arthritis. //Chronic prednisone use. //Suspected and adrenal insufficiency -Certainly prednisone could be cause of patient's abdominal pain as well as cause of his multilevel compression fractures. We'll restart home prednisone for now. Check cortisol prior to prednisone for suspected adrenal insufficiency //Incidental finding of bladder diverticulum. Urinalysis appears noninfectious. We'll need to follow primary care. //Cocaine abuse. Cessation counseling provided. //E-cigarette abuse. Cessation counseling provided. 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 Will restart home anticoagulation. Discussed Condition With: patient, nurse, the physician. H&P: Quality - VTE Deep Vein Thrombosis/Pulmonary Embolism Present on Admission: Yes
[2018-05-10] MEDS: predniSONE 5 MG Tablet PO SCH (20:21)
[2018-05-11] MEDS: Sod Chloride 0.9% Inj 1,000 ML IV.CONT SCH ×2 (04:37→15:56)
--- NOTE | 2018-05-11 05:36 | P.CONNS ---
History of Present Illness Service: Medicine Primary Care Provider: UNKNOWN Family Provider: No Primary Care Physician Chief Complaint: Abdominal distention, back pain on standing History of Present Illness: 52yoM found to have new T10 compression fracture in workup for abdominal distention. Has pain when standing up for prolonged period, but is able to stand and ambulate to bathroom. History of IVDA, currently on Eliquis for DVT. [facility] - History History Provided By: Patient - Medical History Medical History: Medical History (Last Reviewed 05/10/18 @ 18:42 by Daysi Rodríguez RN) Pulmonary embolism Alcohol abuse Cocaine abuse DVT (deep venous thrombosis) Depression Heroin abuse Septic shock - Surgical History Surgical History: Surgical History (Last Updated 05/10/18 @ 19:42 by Preston Jimenez MD) H/O knee surgery History of appendectomy History of tonsillectomy - Family History Family History: Family History (Last Updated 05/10/18 @ 19:42 by Preston Jimenez MD) Other Family history non-contributory - Tobacco History Second Hand Smoke Exposure: Yes Tobacco Use In Past 30 Days: Yes Smoking Status: Current every day smoker Tobacco Type: Cigarettes - Alcohol History How Often Do You Have a Drink Containing Alcohol: 4 or more times a week - Substance Use History Substance History: Active Abuse - Substance Use Type Alcohol Status: Active Route Used: By Mouth Reason for Use: Calm Down, Feels Good Heroin Status: Early Remission Route Used: Inhalation Reason for Use: Feels Good, Get High Crack/Cocaine Status: Active Route Used: Inhalation Frequency: Used for a few days about 4-5 days ago Reason for Use: Get High, Hurt Myself Comment: Patient states he used drugs because he is depressed. - Travel History Recent Travel in the [facility] Within the Last 8 Weeks: No Recent Travel Out of the Country Within the Last 8 Weeks: No - Immunization History Tetanus Immunization: >5 Years Hx Influenza Vaccine This Season: Yes Medications and Allergies Active Medications: Active Medications Al Hydroxide/Mg Hydroxide (Milk Of Magnyaneli Liq) 30 ml PO Q12H PRN PRN Reason: Mild Constipation Apixaban (Eliquis) 2.5 mg PO DAILY [facility] Bisacodyl (Dulcolax Supp) 10 mg RECTAL DAILY PRN PRN Reason: SEVERE CONSITIPATION Sodium Chloride (Ns Inj) 1,000 mls @ 0 mls/hr IV.SIG BOLUS [facility] Last Infusion: 05/10/18 15:31 Dose: Infused Sodium Chloride (Ns Inj) 1,000 mls @ 100 mls/hr IV.CONT .Q10H [facility] Last Admin: 05/11/18 04:37 Dose: 100 mls/hr Lactulose (Lactulose Liq) 30 ml PO DAILY PRN PRN Reason: SEVERE CONSITIPATION Prednisone (Deltasone) 15 mg PO BID [facility] Stop: 05/15/18 20:59 Last Admin: 05/10/18 20:21 Dose: 15 mg Sennosides (Senokot) 17.2 mg PO Q12H PRN PRN Reason: Moderate Constipation Thiamine HCl (Vitamin B1) 200 mg PO BID [facility] Last Admin: 05/10/18 20:21 Dose: 200 mg Allergies Allergy/AdvReac Type Severity Reaction Status Date / Time shellfish derived Allergy Intermediate Swelling Verified 05/10/18 09:13 Home Medications Medication Instructions Recorded Confirmed Type apixaban [Eliquis] 2.5 mg PO DAILY 05/10/18 05/10/18 History prednisone 15 mg PO BID 05/10/18 05/10/18 History Exam Vital signs: Vital Signs 05/10/18 09:07 05/10/18 09:15 05/10/18 13:00 Temperature 97.8 F Pulse Rate 113 H 110 H Respiratory Rate 28 H 20 Blood Pressure 139/99 H 131/79 Pulse Oximetry 97 98 05/10/18 17:00 05/10/18 18:14 05/10/18 20:00 Temperature 98.4 F Pulse Rate 102 H 104 H 101 H Respiratory Rate 19 18 17 Blood Pressure 120/80 143/92 H 132/90 Pulse Oximetry 98 05/11/18 00:00 05/11/18 04:00 Temperature 98.2 F 97.6 F Pulse Rate 101 H 93 H Respiratory Rate 17 18 Blood Pressure 124/81 116/75 Pulse Oximetry 96 94 L Intake & Output 05/10/18 05/10/18 05/11/18 06:59 18:59 06:59 Intake Total 1150 / 1150 1480 / 1480 Output Total 1050 / 1050 Balance 1150 / 1150 430 / 430 Weight 72.575 kg 71.2 kg Intake: IV 1150 / 1150 1000 / 1000 NS Inj 1,000 ML @ 100 mls/hr IV 1000 / 1000 .CONT .Q10H [facility] Rx#:[id number] Zosyn 3.375 GM Premix 50 ML @ 50 / 50 100 mls/hr IV.SIG Q6H [facility] Rx#: [id number] NS Inj 1,000 ML @ Wide Open IV. 1000 / 1000 SIG BOLUS [facility] Rx#:[id number] Rocephin Inj 1,000 MG In NS Inj 100 / 100 100 ML @ 200 mls/hr IV.SIG ONCE ONE Rx#:[id number] Oral 480 / 480 Output: Urine 1050 / 1050 Other: Date of Last Bowel Movement 05/09/18 Narrative: A&O x 3 CN II-XII intact Motor 5/5 UE LE strength actually tests to full bilaterally: ip, q, ham, gas, TA, EHL Intact sensation throughout no bowel/bladder complaints Results - Laboratory Findings CBC and BMP: 05/10/18 09:14 05/10/18 09:14 Abnormal lab findings: Abnormal Labs 05/10/18 05/10/18 05/10/18 09:14 09:14 09:14 WBC 12.8 H MCH 26.5 L RDW 17.9 H [place] % (Auto) 8.6 H Neut # (Auto) 8.5 H [place] # (Auto) 1.1 H APTT D-Dimer Quant (PE/DVT) 1.78 H Sodium 135 L BUN 2 L Lactic Acid Calcium 8.1 L AST 14 L Troponin I Less than 0.02 L Albumin 2.6 L Urine Mucus Acetaminophen Urine Cocaine Screen 05/10/18 05/10/18 05/10/18 09:14 09:14 09:26 WBC MCH RDW [place] % (Auto) Neut # (Auto) [place]uel # (Auto) APTT 23.1 L D-Dimer Quant (PE/DVT) Sodium BUN Lactic Acid 2.9 H Calcium AST Troponin I Albumin Urine Mucus Acetaminophen Less than 2.0 L Urine Cocaine Screen 05/10/18 05/10/18 12:25 12:25 WBC MCH RDW [place] % (Auto) Neut # (Auto) [place] # (Auto) APTT D-Dimer Quant (PE/DVT) Sodium BUN Lactic Acid Calcium AST Troponin I Albumin Urine Mucus Few H Acetaminophen Urine Cocaine Screen Pos H Assessment and Plan - Plan 52yoM with new T10 compression fracture with wedge deformity, prolonged back pain on standing, abdominal distention, on eliquis for DVT. Recommend trial of bracing (TLSO). If patient is unable to tolerate the brace or back pain persists despite brace, may need surgical intervention. Is at risk given comorbid conditions. MRI T and L-spine could be obtained. F/u with Dr. [facility] to follow his progress with the brace.
[2018-05-11 07:25] LABS: Baso % (Auto) 0.3 % (0.0-2.0); Eos % (Auto) 0.2 % (0.0-4.0); Hematocrit 36.7 % (39.0-51.0); Lymph # (Auto) 1.8 th/mm3 (1.0-4.8); Lymph % (Auto) 22.4 % (9.0-44.0); Mean Corpuscular HGB Conc 32.7 % (32.0-36.0); Mean Corpuscular Hemoglobin 26.5 pg (27.0-34.0); Mean Platelet Volume 7.9 fL (7.0-11.0); Mono # (Auto) 0.4 th/mm3 (0.0-0.9); Mono % (Auto) 4.9 % (0.0-8.0); Neut # (Auto) 5.8 th/mm3 (1.8-7.7); Neut % (Auto) 72.2 % (16.0-70.0); Platelet Count 371 th/mm3 (150-450); Red Blood Count 4.53 mil/mm3 (4.50-5.90); Red Cell Distribution Width 17.7 % (11.6-17.2)
[2018-05-11 07:46] LABS: Alanine Aminotransferase 14 U/L (12-78); Albumin 2.2 g/dL (3.4-5.0); Anion Gap 9 meq/L (5-15); Aspartate Aminotransferase 10 U/L (15-37); Blood Urea Nitrogen 2 mg/dL (7-18); Calcium 7.7 mg/dL (8.5-10.1); Carbon Dioxide 23.2 meq/L (21.0-32.0); Chloride 109 meq/L (98-107); Glomerular Filtration Rate Greater Than 89 mL/min (>89); Glucose,Random 100 mg/dL (74-106); Potassium 4.1 meq/L (3.5-5.1); Sodium 141 meq/L (136-145)
[2018-05-11 07:49] LABS: Alkaline Phosphatase 83 U/L (45-117); Total Protein 5.8 g/dL (6.4-8.2)
[2018-05-11] MEDS: predniSONE 5 MG Tablet PO SCH ×2 (08:42→20:36)
--- NOTE | 2018-05-11 09:42 | MR ---
EXAM DATE: 05/11/2018 7:55 AM EDT AGE/SEX: 52 years / Male INDICATIONS: Fracture. Weakness. CLINICAL DATA: This is the patient's subsequent encounter. Patient reports that signs and symptoms h ave been present for 2 days and indicates a pain score of 5/10. MEDICAL/SURGICAL HISTORY: Deep venous thrombosis. Appendectomy. Tonsillectomy. Thrombectomy le ft arm. Rt knee arthroscopy. COMPARISON: No prior exams available for comparison. TECHNIQUE: Multiplanar, multisequence MRI of the thoracic spine was performed. FINDINGS: Vertebrae: Multiple chronic compression deformities are noted within the thoracic spine with severe c ompression fracture at T10, moderate to severe compression fractures at T11 and T8, moderate compress ion fracture at T9 and mild compression fractures at T5, T6, T7, and T12. Mild to moderate compressio n fractures are also noted involving L1 and L2. No acute compression deformity is noted. Alignment: Normal. Cord: Normal position and configuration. T1-T2: The thecal sac has a normal diameter. No evidence of disc bulge or protrusion. T2-T3: The thecal sac has a normal diameter. No evidence of disc bulge or protrusion. T3-T4: The thecal sac has a normal diameter. No evidence of disc bulge or protrusion. T4-T5: The thecal sac has a normal diameter. No evidence of disc bulge or protrusion. T5-T6: The thecal sac has a normal diameter. No evidence of disc bulge or protrusion. T6-T7: The thecal sac has a normal diameter. No evidence of disc bulge or protrusion. T7-T8: The thecal sac has a normal diameter. No evidence of disc bulge or protrusion. T8-T9: The thecal sac has a normal diameter. No evidence of disc bulge or protrusion. T9-T10: There is grade I retrolisthesis of T10 relation to T9. Minimal effacement of the anterior th ecal sac is noted related to posterior osteophytic ridging. No spinal stenosis or neuroforaminal narr owing is noted. T10-T11: Mild spinal stenosis is noted secondary to diffuse disc osteophyte complex and grade I retr olisthesis of T10 in relation to T11. T11-T12: The thecal sac has a normal diameter. No evidence of disc bulge or protrusion. T12-L1: The thecal sac has a normal diameter. No evidence of disc bulge or protrusion. CONCLUSION: 1. Multiple chronic compression deformities are noted within the thoracic spine with severe compress ion fracture at T10, moderate to severe compression fractures at T11 and T8, moderate compression fra cture at T9 and mild compression fractures at T5, T6, T7, and T12. Mild to moderate compression fract ures are also noted involving L1 and L2. No acute compression deformity is noted. 2. Mild spinal stenosis at T10-11, L1-2 and L2-3. 3. Grade I retrolisthesis of T10 relation to T9 and T11. Electronically signed by: Wyatt Degroot MD 05/11/2018 9:41 AM EDT
--- NOTE | 2018-05-11 14:22 | P.CONPSY ---
<Victor Hugo Boyd - Last Filed: 05/11/18 13:27> Provisional Diagnosis Admission Date: May 10, 2018 17:43 History of Present Illness Reason for Consult: Misty Act - Suicidal Ideation Primary Care Provider: UNKNOWN Family Provider: No Primary Care Physician Chief Complaint: Suicidal Ideation, Substance Abuse History of Present Illness: Mr. 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 He reports that 5-6 days ago he used crack cocaine and ingested "a handful of pills and drank 3-4 tall boy beers" with the intent of committing suicide due to depression. He states that he was unconscious most of the time and was discovered by the manager organizational who called EMS at the patients request due to intense abdominal/chest pain in addition to "the fact I hadn't yet and what I tried wasn't working". He was worked up in ED for PE/DVT, Abdominal Pain, Back Pain, and Bilateral LE Weakness. Misty Act was placed due to reports of suicidal ideation. He states that he is "very depressed and feels all alone" as his recently left him, his mother (whom he was living with) was placed in an NAA, all 5 of his children live in [facility], and he can no longer work due vertebral fractures. He began using Marijuana at a young age which evolved into EtOH, crack cocaine, heroin, and IV Dilaudid over the years. He states that he uses crack cocaine to "get back to baseline" and heroin/Dilaudid for his chronic pain. He was hospitalized at [facility] for a previous suicide attempt 3-4yrs ago via overdose of pain pills during a depressive episode after which he was diagnosed with Bipolar I and successfully detoxed and treated for psych disorders for about 2yrs. He d/c his psych meds 1.5yrs ago stating "I thought I was better" and began using illicit drugs again in July 2017. He states that his mood often fluctuates between manic and depression where he "feels like a failure, because I can't work, I'm all alone, and I can't even kill myself." He endorses a hx of auditory and visual hallucinations. He denies tactile hallucinations or withdrawal symptoms at this time. He denies any fever, chills, night sweats, chest pain, sob, sleepiness, changes in sleep, or changes in defecation/ urination. He states that he was once told that he had Hepatitis B but denies Hep C, HIV/AIDS, or TB. He states that he knows he shouldn't kill himself and that his family loves him but he doesn't want them to see him like this. He states that he wants help for his drug addiction, suicidal ideation, and psychiatric problems. He is concerned that if he is all alone that he will try to kill himself again but denies wanting to cause harm to anyone else. Review of Systems All other systems reviewed negative except as stated in HPI Constitutional: Reports weakness Comments: Bilateral LE Weakness Gastrointestinal: Reports abdominal pain Musculoskeletal: Reports back pain, Reports body aches, Reports joint pain, Reports stiffness Psychiatric: Reports behavioral changes, Reports depression, Reports hearing things others do not hear, Reports hopelessness, Reports irritability, Reports lack of enjoyment, Reports mood swings, Reports paranoia, Reports seeing things others do not see, Reports thoughts of hurting/killing yourself PMFSH - History History Provided By: Patient - Medical History Medical History: Medical History (Last Reviewed 05/10/18 @ 18:42 by Daysi Rodríguez RN) Pulmonary embolism Alcohol abuse Cocaine abuse DVT (deep venous thrombosis) Depression Heroin abuse Septic shock - Surgical History Surgical History: Surgical History (Last Updated 05/10/18 @ 19:42 by Preston Jimenez MD) H/O knee surgery History of appendectomy History of tonsillectomy - Family History Family History: Family History (Last Updated 05/10/18 @ 19:42 by Preston Jimenez MD) Other Family history non-contributory - Tobacco History Second Hand Smoke Exposure: Yes Tobacco Use In Past 30 Days: Yes Smoking Status: Current every day smoker Tobacco Type: Cigarettes - Alcohol History How Often Do You Have a Drink Containing Alcohol: 4 or more times a week - Substance Use History Substance History: Active Abuse - Substance Use Type Alcohol Status: Active Route Used: By Mouth Reason for Use: Calm Down, Feels Good Heroin Status: Early Remission Route Used: Inhalation Reason for Use: Feels Good, Get High Crack/Cocaine Status: Active Route Used: Inhalation Frequency: Used for a few days about 4-5 days ago Reason for Use: Get High, Hurt Myself Comment: Patient states he used drugs because he is depressed. - Travel History Recent Travel in the [place] Within the Last 8 Weeks: No Recent Travel Out of the Country Within the Last 8 Weeks: No - Immunization History Tetanus Immunization: >5 Years Hx Influenza Vaccine This Season: Yes Medications and Allergies Allergies Allergy/AdvReac Type Severity Reaction Status Date / Time shellfish derived Allergy Intermediate Swelling Verified 05/10/18 09:13 Home Medications Medication Instructions Recorded Confirmed Type apixaban [Eliquis] 2.5 mg PO DAILY 05/10/18 05/10/18 History prednisone 15 mg PO BID 05/10/18 05/10/18 History Active Medications: Active Medications Al Hydroxide/Mg Hydroxide (Milk Of Magnesia Liq) 30 ml PO Q12H PRN PRN Reason: Mild Constipation Apixaban (Eliquis) 2.5 mg PO DAILY FORMERLY [facility], [facility]1983 Last Admin: 05/11/18 08:42 Dose: 2.5 mg Bisacodyl (Dulcolax Supp) 10 mg RECTAL DAILY PRN PRN Reason: SEVERE CONSITIPATION Sodium Chloride (Ns Inj) 1,000 mls @ 0 mls/hr IV.SIG BOLUS FORMERLY [facility], [facility]–1983 Last Infusion: 05/10/18 15:31 Dose: Infused Sodium Chloride (Ns Inj) 1,000 mls @ 100 mls/hr IV.CONT .Q10H FORMERLY [facility], [facility]–1983 Last Admin: 05/11/18 04:37 Dose: 100 mls/hr Lactulose (Lactulose Liq) 30 ml PO DAILY PRN PRN Reason: SEVERE CONSITIPATION Prednisone (Deltasone) 15 mg PO BID FOR[facility]LY [facility], [facility]1983 Stop: 05/15/18 20:59 Last Admin: 05/11/18 08:42 Dose: 15 mg Sennosides (Senokot) 17.2 mg PO Q12H PRN PRN Reason: Moderate Constipation Thiamine HCl (Vitamin B1) 200 mg PO BID FOR[facility]LY [facility], [facility] Last Admin: 05/11/18 08:42 Dose: 200 mg Exam Vital signs: Vital Signs 05/10/18 17:00 05/10/18 18:14 05/10/18 20:00 Temperature 98.4 F Pulse Rate 102 H 104 H 101 H Respiratory Rate 19 18 17 Blood Pressure 120/80 143/92 H 132/90 Pulse Oximetry 98 05/11/18 00:00 05/11/18 04:00 05/11/18 05:40 Temperature 98.2 F 97.6 F Pulse Rate 101 H 93 H 86 Respiratory Rate 17 18 Blood Pressure 124/81 116/75 Pulse Oximetry 96 94 L 05/11/18 07:59 05/11/18 08:00 05/11/18 09:00 Temperature 97.8 F Pulse Rate 102 H 88 Respiratory Rate 20 Blood Pressure 128/86 Pulse Oximetry 96 96 05/11/18 12:00 Temperature Pulse Rate 85 Respiratory Rate Blood Pressure Pulse Oximetry Intake & Output 05/10/18 05/11/18 05/11/18 18:59 06:59 18:59 Intake Total 1150 / 1150 1480 / 1480 Output Total 1050 / 1050 Balance 1150 / 1150 430 / 430 Weight 72.575 kg 71.2 kg Intake: IV 1150 / 1150 1000 / 1000 NS Inj 1,000 ML @ 100 mls/hr IV 1000 / 1000 .CONT .Q10H EUGENIA Rx#:[id number] Zosyn 3.375 GM Premix 50 ML @ 50 / 50 100 mls/hr IV.SIG Q6H EUGENIA Rx#: [id number] NS Inj 1,000 ML @ Wide Open IV. 1000 / 1000 SIG BOLUS EUGENIA Rx#:[id number] Rocephin Inj 1,000 MG In NS Inj 100 / 100 100 ML @ 200 mls/hr IV.SIG ONCE ONE Rx#:[id number] Oral 480 / 480 Output: Urine 1050 / 1050 Other: Date of Last Bowel Movement 05/09/18 - Constitutional mild distress (Tearful, Emotional), average body habitus, cooperative, somnolent - Routine HEENT Exam Head: Present: normocephalic, atraumatic - Routine Neurological Exam Present: alert, oriented X3 - Routine Psychiatric Exam Present: normal thought process, suicidal ideation, cooperative, good insight, depressed Comments: Judgement - Improving - Detailed Psychiatric Exam Mood and affect: Present: tearful Mental Status Examination Appearance: Appropriate (Hospital gown, unshaven, good posture, just returned from MRI, sitter in room) Consciousness: Alert Orientation: x4 Speech: Unremarkable Language: Adequate Fund of Knowledge: Adequate Attention and Concentration: Adequate (good eye contact) Memory: Recent (intact), Remote (intact) Mood: Sad ("I'm all tore up. I don't want to be alone.") Affect: Sad (Tearful, Emotional during interview) Thought Process & Associations: Intact, Logical, Goal directed, Linear Thought Content: Preoccupations (+ SI, - HI, - Obsessions/Compulsions) Hallucination Type: None (HX of Visual/Auditory Hallucinations, but none at this moment) Delusion Type: Paranoid (Pt reports hx of paranoia ) Suicidal Ideation: Yes Suicidal Plan: No (Pt States "I find myself looking around the room for something I could use to kill myself with often") Suicidal Intention: Yes Homicidal Ideation: No (Pt states "I don't want anyone else to get hurt, just myself.") Homicidal Plan: No Homicidal Intention: No Insight: Adequate Judgment: Impulsive Mental Status Exam Remarks: MMSE Performed: - 3/3 Recall (Immediate and Delayed) - 2/2 Abstraction - x4 Orientation - Normal Clock Draw Assessment and Plan - Plan Plan: Estimated LOS: [] days <Moshe Allen - Last Filed: 05/11/18 14:44> Provisional Diagnosis Admission Date: May 10, 2018 17:43 [place].: Bipolar depression, r/o substance-induced mood disorder, cocaine and heroine use disorder [place].: Deferred [place] III.: DVT, PE, RA, umbilical hernia, vertebral Fx History of Present Illness Service: Medicine Primary Care Provider: UNKNOWN Family Provider: No Primary Care Physician History of Present Illness: H&P has been written by medical student Victor Hugo Boyd, reviewed by and edited me. [facility] - Medical History Medical History: Medical History (Last Reviewed 05/10/18 @ 18:42 by Daysi Rodríguez RN) Pulmonary embolism Alcohol abuse Cocaine abuse DVT (deep venous thrombosis) Depression Heroin abuse Septic shock - Surgical History Surgical History: Surgical History (Last Updated 05/10/18 @ 19:42 by Preston Jimenez MD) H/O knee surgery History of appendectomy History of tonsillectomy - Family History Family History: Family History (Last Updated 05/10/18 @ 19:42 by Preston Jimenez MD) Other Family history non-contributory Medications and Allergies Active Medications: Active Medications Al Hydroxide/Mg Hydroxide (Milk Of Magnesia Liq) 30 ml PO Q12H PRN PRN Reason: Mild Constipation Apixaban (Eliquis) 2.5 mg PO DAILY [facility], [facility] Last Admin: 05/11/18 08:42 Dose: 2.5 mg Bisacodyl (Dulcolax Supp) 10 mg RECTAL DAILY PRN PRN Reason: SEVERE CONSITIPATION Sodium Chloride (Ns Inj) 1,000 mls @ 0 mls/hr IV.SIG BOLUS [facility], [facility] Last Infusion: 05/10/18 15:31 Dose: Infused Sodium Chloride (Ns Inj) 1,000 mls @ 100 mls/hr IV.CONT .Q10H [facility], [facility] Last Admin: 05/11/18 04:37 Dose: 100 mls/hr Lactulose (Lactulose Liq) 30 ml PO DAILY PRN PRN Reason: SEVERE CONSITIPATION Prednisone (Deltasone) 15 mg PO BID [facility] Stop: 05/15/18 20:59 Last Admin: 05/11/18 08:42 Dose: 15 mg Sennosides (Senokot) 17.2 mg PO Q12H PRN PRN Reason: Moderate Constipation Thiamine HCl (Vitamin B1) 200 mg PO BID [facility], [facility] Last Admin: 05/11/18 08:42 Dose: 200 mg Exam Vital signs: Vital Signs 05/10/18 17:00 05/10/18 18:14 05/10/18 20:00 Temperature 98.4 F Pulse Rate 102 H 104 H 101 H Respiratory Rate 19 18 17 Blood Pressure 120/80 143/92 H 132/90 Pulse Oximetry 98 05/11/18 00:00 05/11/18 04:00 05/11/18 05:40 Temperature 98.2 F 97.6 F Pulse Rate 101 H 93 H 86 Respiratory Rate 17 18 Blood Pressure 124/81 116/75 Pulse Oximetry 96 94 L 05/11/18 07:59 05/11/18 08:00 05/11/18 09:00 Temperature 97.8 F Pulse Rate 102 H 88 Respiratory Rate 20 Blood Pressure 128/86 Pulse Oximetry 96 96 05/11/18 12:00 Temperature Pulse Rate 85 Respiratory Rate Blood Pressure Pulse Oximetry Intake & Output 05/10/18 05/11/18 05/11/18 18:59 06:59 18:59 Intake Total 1150 / 1150 1480 / 1480 Output Total 1050 / 1050 Balance 1150 / 1150 430 / 430 Weight 72.575 kg 71.2 kg Intake: IV 1150 / 1150 1000 / 1000 NS Inj 1,000 ML @ 100 mls/hr IV 1000 / 1000 .CONT .Q10H EUGENIA Rx#:[id number] Zosyn 3.375 GM Premix 50 ML @ 50 / 50 100 mls/hr IV.SIG Q6H EUGENIA Rx#: [id number] NS Inj 1,000 ML @ Wide Open IV. 1000 / 1000 SIG BOLUS EUGENIA Rx#:[id number] Rocephin Inj 1,000 MG In NS Inj 100 / 100 100 ML @ 200 mls/hr IV.SIG ONCE ONE Rx#:[id number] Oral 480 / 480 Output: Urine 1050 / 1050 Other: Date of Last Bowel Movement 05/09/18 Assessment and Plan - Assessment (1) Bipolar depression Code(s): F31.30 - Bipolar disorder, current episode depressed, mild or moderate severity, unspecified Status: Acute - Plan Plan: Estimated LOS: [] days On my psychiatric evaluation today I find a patient that presents objectively depressed, tearful throughout the interview, he seems to be fragile and vulnerable at times, he reports that he has been having symptoms of depression for at least 3 weeks, he describes his depression as an increased sense of hopelessness, helplessness, worthlessness, increased sensitivity to rejection, frustration, increased anxiety, increased use of recreational activating drugs, such as cocaine, persistent suicidal ideation without any specific plan. The patient reports as acute stressors, sense of abandonment by his family and friends, inability to work, decreased functionality, untreated medical conditions, noncompliance with psychotropics, increase recreational drug use, but at the same time he reports protective factors for suicidality such as the love of his family and rastafarian belief. This is a patient with a psychiatric history of depression, bipolar disorder, previous psychiatric hospitalizations, self harming and suicidal attempts in the past, heroine and cocaine use disorder , poor impulse control, poor coping skills, and he has an increased risk of danger to self at this moment. The patient really benefit of psychiatric admission for stabilization and safety. Continue one-to-one in the medical floor. We will start Seroquel 25 mg twice daily for bipolar depression and to help the patient with impulsivity and anxiety. Patient may benefit of a low dose of benzodiazepine, but will be addressed in inpatient psychiatry. Patient also can benefit of long-term comprehensive rehabilitation program to be explore as an inpatient psychiatry too. Extensive support, motivation and psychoeducation provided. Patient will be transferred to psychiatry once medically stable. Justification for Continued Inpatient Stay: Patient will be admitted in psychiatry.
--- NOTE | 2018-05-11 17:31 | P.PNIM ---
Subjective Interval history: Better today. Still with continued severe back pain. Denies any chest pain or shortness of breath. Says he feels comfortable going to psychiatry rodriguez today. Physical Exam Vital signs: Vital Signs 05/10/18 18:14 05/10/18 20:00 05/11/18 00:00 Temperature 98.4 F 98.2 F Pulse Rate 104 H 101 H 101 H Respiratory Rate 18 17 17 Blood Pressure 143/92 H 132/90 124/81 Pulse Oximetry 98 96 05/11/18 04:00 05/11/18 05:40 05/11/18 07:59 Temperature 97.6 F Pulse Rate 93 H 86 Respiratory Rate 18 Blood Pressure 116/75 Pulse Oximetry 94 L 96 05/11/18 08:00 05/11/18 09:00 05/11/18 12:00 Temperature 97.8 F 97.7 F Pulse Rate 102 H 88 81 Respiratory Rate 20 20 Blood Pressure 128/86 145/86 H Pulse Oximetry 96 98 Intake & Output 05/10/18 05/11/18 05/11/18 18:59 06:59 18:59 Intake Total 1150 / 1150 1480 / 1480 1000 / 1000 Output Total 1050 / 1050 Balance 1150 / 1150 430 / 430 1000 / 1000 Weight 72.575 kg 71.2 kg Intake: IV 1150 / 1150 1000 / 1000 1000 / 1000 NS Inj 1,000 ML @ 100 mls/hr IV 1000 / 1000 1000 / 1000 .CONT .Q10H EUGENIA Rx#:[id number] Zosyn 3.375 GM Premix 50 ML @ 50 / 50 100 mls/hr IV.SIG Q6H EUGENIA Rx#: [id number] NS Inj 1,000 ML @ Wide Open IV. 1000 / 1000 SIG BOLUS EUGENIA Rx#:[id number] Rocephin Inj 1,000 MG In NS Inj 100 / 100 100 ML @ 200 mls/hr IV.SIG ONCE ONE Rx#:[id number] Oral 480 / 480 Output: Urine 1050 / 1050 Other: Date of Last Bowel Movement 05/09/18 Results - Labs CBC & Chem 7: 05/11/18 05:54 05/11/18 05:55 Laboratory Results - last 24 hr 05/10/18 05/11/18 05/11/18 20:34 05:54 05:55 WBC 8.0 RBC 4.53 Hgb 12.0 L Hct 36.7 L MCV 81.0 MCH 26.5 L MCHC 32.7 RDW 17.7 H Plt Count 371 MPV 7.9 Neut % (Auto) 72.2 H Lymph % (Auto) 22.4 Elbert % (Auto) 4.9 Eos % (Auto) 0.2 Baso % (Auto) 0.3 Neut # (Auto) 5.8 Lymph # (Auto) 1.8 Elbert # (Auto) 0.4 Eos # (Auto) 0.0 Baso # (Auto) 0.0 WBC Differential . Differential Comment Auto diff final Sodium 141 Potassium 4.1 Chloride 109 H Carbon Dioxide 23.2 Anion Gap 9 BUN 2 L Creatinine 0.44 L Estimated GFR Greater than 89 Random Glucose 100 Calcium 7.7 L Total Bilirubin 0.2 AST 10 L ALT 14 Alkaline Phosphatase 83 Total Protein 5.8 L D Albumin 2.2 L Cortisol 8.4 Microbiology 05/10/18 09:25 Blood - Peripheral Aerobic Blood Culture - Preliminary No growth in 1 day 05/10/18 09:25 Blood - Peripheral Anaerobic Blood Culture - Preliminary No growth in 1 day 05/10/18 09:15 Blood - Peripheral Aerobic Blood Culture - Preliminary No growth in 1 day 05/10/18 09:15 Blood - Peripheral Anaerobic Blood Culture - Preliminary No growth in 1 day - Imaging Impressions Thoracic Spine MRI 05/11/18 00:00 CONCLUSION: 1. Multiple chronic compression deformities are noted within the thoracic spine with severe compression fracture at T10, moderate to severe compression fractures at T11 and T8, moderate compression fracture at T9 and mild compression fractures at T5, T6, T7, and T12. Mild to moderate compression fractures are also noted involving L1 and L2. No acute compression deformity is noted. 2. Mild spinal stenosis at T10-11, L1-2 and L2-3. 3. Grade I retrolisthesis of T10 relation to T9 and T11. Assessment and Plan - Plan //Bilateral lower extremity weakness over the past week //Multilevel compression fractures with multilevel spinal stenosis //Abdominal pain //Suspected thoracic radiculopathy = CT abdomen with some incidental findings including kidney stone, bladder diverticulum, however patient's abdominal pain is best explained by compression fractures/abdominal thoracic radiculopathy Neuro checks. We'll consult neurosurgery. = Appreciate neurosurgery assistance. Multilevel compression fractures of the spine. TLSO brace ordered. //Suicidal ideation. Patient is Jay acted in the ER. Psychiatry assistance appreciated. = Psychiatry has evaluated the patient. Will transfer to inpatient psychiatry stable. //Shortness of breath. Likely secondary to thoracic pain. CT pulmonary angiogram negative. = Resolved. Was likely secondary to crack. //Leukocytosis. 12.8 on admission. Could be secondary to pain/crack. = Resolved. //Tiny calcified granuloma in left upper lobe. No evidence of active respiratory infection. //Lactic acidosis of 2.9 on admission. Resolved after IV fluids. Likely secondary to dehydration, malnutrition versus crack. We'll start thiamine supplementation //Rheumatoid arthritis. //Chronic prednisone use. //Suspected and adrenal insufficiency -Certainly prednisone could be cause of patient's abdominal pain as well as cause of his multilevel compression fractures. We'll restart home prednisone for now. Check cortisol prior to prednisone for suspected adrenal insufficiency = Cortisol within normal limits yesterday, however likely adrenal insufficiency. Patient reports being on prednisone twice daily for 2 years, and says he felt bad over the past few days when he discontinued it. We will start back on prednisone, plan for slow taper as outpatient. //Incidental finding of bladder diverticulum. Urinalysis appears noninfectious. We'll need to follow primary care. //Cocaine abuse. Cessation counseling provided. //E-cigarette abuse. Cessation counseling provided. 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 Will restart home anticoagulation. Discharge Planning: Please discharged to psychiatry tomorrow morning after patient receives TLSO brace
[2018-05-11] MEDS: Acetaminophen 325 MG Tablet PO PRN (20:35)
[2018-05-12 00:09] VITALS: RESP 18
[2018-05-12] MEDS: Sod Chloride 0.9% Inj 1,000 ML IV.CONT SCH ×3 (01:55→12:00)
[2018-05-12] MEDS: predniSONE 5 MG Tablet PO SCH (08:11)
[2018-05-12] MEDS: Acetaminophen 325 MG Tablet PO PRN (08:15)
[2018-05-12 08:31] VITALS: O2SAT 98
--- NOTE | 2018-05-12 11:21 | P.PNIM ---
Subjective Interval history: He says he is feeling well. Denies any chest pain shortness of breath. Physical Exam Vital signs: Vital Signs 05/11/18 12:00 05/11/18 16:00 05/11/18 20:00 Temperature 97.7 F 97.9 F 97.4 F L Pulse Rate 81 95 H 81 Respiratory Rate 20 20 20 Blood Pressure 145/86 H 129/63 123/84 Pulse Oximetry 98 97 96 05/12/18 00:00 05/12/18 04:00 05/12/18 08:00 Temperature 98.1 F 96.3 F L 97.5 F L Pulse Rate 85 79 83 Respiratory Rate 18 18 18 Blood Pressure 117/67 125/67 153/71 H Pulse Oximetry 97 92 L 98 Intake & Output 05/11/18 05/12/18 05/12/18 18:59 06:59 18:59 Intake Total 1360 / 1360 2200 / 2200 1000 / 1000 Output Total 1900 / 1900 1100 / 1100 Balance -540 / -540 1100 / 1100 1000 / 1000 Weight 71.6 kg Intake: IV 1000 / 1000 1000 / 1000 1000 / 1000 NS Inj 1,000 ML @ 100 mls/hr IV 1000 / 1000 1000 / 1000 1000 / 1000 .CONT .Q10H EUGENIA Rx#:[id number] Oral 360 / 360 1200 / 1200 Output: Urine 1900 / 1900 1100 / 1100 Other: # Bowel Movements 1 Narrative: GENERAL: Patient sitting in bed. Appears comfortable. Alert and oriented x3. SKIN: Warm and dry. HEAD: Normocephalic. EYES: No scleral icterus. No injection or drainage. NECK: Supple, trachea midline. No JVD. CARDIOVASCULAR: Regular rate and rhythm without murmurs, gallops, or rubs. RESPIRATORY: Breath sounds equal bilaterally. No accessory muscle use. GASTROINTESTINAL: Abdomen soft, non-tender, nondistended. MUSCULOSKELETAL: No cyanosis, or edema. BACK: Nontender without obvious deformity. No CVA tenderness. Results - Labs CBC & Chem 7: 05/11/18 05:54 05/11/18 05:55 Microbiology 05/10/18 09:25 Blood - Peripheral Aerobic Blood Culture - Preliminary No growth in 2 days 05/10/18 09:25 Blood - Peripheral Anaerobic Blood Culture - Preliminary No growth in 2 days 05/10/18 09:15 Blood - Peripheral Aerobic Blood Culture - Preliminary No growth in 2 days 05/10/18 09:15 Blood - Peripheral Anaerobic Blood Culture - Preliminary No growth in 2 days Assessment and Plan - Plan //Bilateral lower extremity weakness over the past week //Multilevel compression fractures with multilevel spinal stenosis //Abdominal pain //Suspected thoracic radiculopathy = CT abdomen with some incidental findings including kidney stone, bladder diverticulum, however patient's abdominal pain is best explained by compression fractures/abdominal thoracic radiculopathy Neuro checks. We'll consult neurosurgery. = Appreciate neurosurgery assistance. Multilevel compression fractures of the spine. TLSO brace ordered. == Follow-up with neurosurgery as outpatient. Appreciate assistance. //Suicidal ideation. Patient is Jay acted in the ER. Psychiatry assistance appreciated. = Psychiatry has evaluated the patient. Will transfer to inpatient psychiatry stable. = Discharged to psychiatry once TLSO brace is fitted. //Shortness of breath. Likely secondary to thoracic pain. CT pulmonary angiogram negative. = Resolved. Was likely secondary to crack. //Leukocytosis. 12.8 on admission. Could be secondary to pain/crack. = Resolved. //Tiny calcified granuloma in left upper lobe. No evidence of active respiratory infection. //Lactic acidosis of 2.9 on admission. Resolved after IV fluids. Likely secondary to dehydration, malnutrition versus crack. We'll start thiamine supplementation //Rheumatoid arthritis. //Chronic prednisone use. //Suspected and adrenal insufficiency -Certainly prednisone could be cause of patient's abdominal pain as well as cause of his multilevel compression fractures. We'll restart home prednisone for now. Check cortisol prior to prednisone for suspected adrenal insufficiency = Cortisol within normal limits yesterday, however likely adrenal insufficiency. Patient reports being on prednisone twice daily for 2 years, and says he felt bad over the past few days when he discontinued it. We will start back on prednisone, plan for slow taper as outpatient. = Decrease prednisone to 10 mg twice daily. This will need to be tapered as outpatient. //Incidental finding of bladder diverticulum. Urinalysis appears noninfectious. We'll need to follow primary care. //Cocaine abuse. Cessation counseling provided. //E-cigarette abuse. Cessation counseling provided. 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 Will restart home anticoagulation. Discharge Planning: Discharge to psychiatry once TLSO brace is fitted.
--- NOTE | 2018-05-12 11:24 | P.DS ---
Date of admission: 05/10/18 17:43 Primary care physician: UNKNOWN Brief History from admission: 52-year-old male with a history of rheumatoid arthritis, chronic prednisone who presents with a one-week history of bilateral lower extremity weakness, severe constant midline back pain as well as severe constant abdominal pain with shortness of breath. He says he smoked crack 4 days ago, and was planning to lie down in the hotel room and not eat anything until he . He denies any dysuria, hematuria, fevers, chills. He did have some nausea with nonbloody vomiting 2 days ago. He's been Jay acted in the ER. CT chest negative for pulmonary embolism. DS: Summary Hospital Course: Patient with tachycardia, leukocytosis on admission, likely secondary to crack cocaine. This resolved. No evidence of infection. CT pulmonary and gram- negative apart from incidental finding of tiny calcified granuloma left upper lobe, as well as some chronic fibrosis. Patient reported generalized weakness, multiple spinal compression fractures found with minimal spinal stenosis on MRI. Neurosurgery was consulted and recommends TLSO brace. Patient will need to follow-up with neurosurgery as outpatient. He will need to stop using cocaine. Patient is suspected to have adrenal insufficiency secondary to chronic prednisone use. Prednisone will be decreased, however will need to be tapered gradually as an outpatient. Patient will be continued on apixaban for history of DVT. For problem based summary from most recent progress note, please see below. //Bilateral lower extremity weakness over the past week //Multilevel compression fractures with multilevel spinal stenosis //Abdominal pain //Suspected thoracic radiculopathy = CT abdomen with some incidental findings including kidney stone, bladder diverticulum, however patient's abdominal pain is best explained by compression fractures/abdominal thoracic radiculopathy Neuro checks. We'll consult neurosurgery. = Appreciate neurosurgery assistance. Multilevel compression fractures of the spine. TLSO brace ordered. == Follow-up with neurosurgery as outpatient. Appreciate assistance. //Suicidal ideation. Patient is Jay acted in the ER. Psychiatry assistance appreciated. = Psychiatry has evaluated the patient. Will transfer to inpatient psychiatry stable. = Discharged to psychiatry once TLSO brace is fitted. //Shortness of breath. Likely secondary to thoracic pain. CT pulmonary angiogram negative. = Resolved. Was likely secondary to crack. //Leukocytosis. 12.8 on admission. Could be secondary to pain/crack. = Resolved. //Tiny calcified granuloma in left upper lobe. No evidence of active respiratory infection. //Lactic acidosis of 2.9 on admission. Resolved after IV fluids. Likely secondary to dehydration, malnutrition versus crack. We'll start thiamine supplementation //Rheumatoid arthritis. //Chronic prednisone use. //Suspected and adrenal insufficiency -Certainly prednisone could be cause of patient's abdominal pain as well as cause of his multilevel compression fractures. We'll restart home prednisone for now. Check cortisol prior to prednisone for suspected adrenal insufficiency = Cortisol within normal limits yesterday, however likely adrenal insufficiency. Patient reports being on prednisone twice daily for 2 years, and says he felt bad over the past few days when he discontinued it. We will start back on prednisone, plan for slow taper as outpatient. = Decrease prednisone to 10 mg twice daily. This will need to be tapered as outpatient. //Incidental finding of bladder diverticulum. Urinalysis appears noninfectious. We'll need to follow primary care. //Cocaine abuse. Cessation counseling provided. //E-cigarette abuse. Cessation counseling provided. 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 Will restart home anticoagulation. Discharge Planning: Discharge to psychiatry once TLSO brace is fitted. - Time Spent with Patient Total time spent providing and/or coordinating discharge services: Greater than 30 minutes - Quality: VTE Deep Vein Thrombosis/Pulmonary Embolism Present on Admission: Yes Exam Vital signs: Vital Signs 05/11/18 12:00 05/11/18 16:00 05/11/18 20:00 Temperature 97.7 F 97.9 F 97.4 F L Pulse Rate 81 95 H 81 Respiratory Rate 20 20 20 Blood Pressure 145/86 H 129/63 123/84 Pulse Oximetry 98 97 96 05/12/18 00:00 05/12/18 04:00 05/12/18 08:00 Temperature 98.1 F 96.3 F L 97.5 F L Pulse Rate 85 79 83 Respiratory Rate 18 18 18 Blood Pressure 117/67 125/67 153/71 H Pulse Oximetry 97 92 L 98 Intake & Output 05/11/18 05/12/18 05/12/18 18:59 06:59 18:59 Intake Total 1360 / 1360 2200 / 2200 1000 / 1000 Output Total 1900 / 1900 1100 / 1100 Balance -540 / -540 1100 / 1100 1000 / 1000 Weight 71.6 kg Intake: IV 1000 / 1000 1000 / 1000 1000 / 1000 NS Inj 1,000 ML @ 100 mls/hr IV 1000 / 1000 1000 / 1000 1000 / 1000 .CONT .Q10H EUGENIA Rx#:[id number] Oral 360 / 360 1200 / 1200 Output: Urine 1900 / 1900 1100 / 1100 Other: # Bowel Movements 1 Results Procedures completed during hospitalization: No invasive procedures. Labs on day of discharge: Preliminary micro results at discharge 05/10/18 09:25 Aerobic Blood Culture - Preliminary Blood - Peripheral No growth in 2 days Anaerobic Blood Culture - Preliminary No growth in 2 days 05/10/18 09:15 Aerobic Blood Culture - Preliminary Blood - Peripheral No growth in 2 days Anaerobic Blood Culture - Preliminary No growth in 2 days - Impressions ITS Impressions Chest X-Ray 05/10/18 09:09 CONCLUSION: Negative for an acute process Abdomen/Pelvis CT 05/10/18 10:37 CONCLUSION: 1. Uncomplicated colonic diverticulosis is noted. 2. Calcified nonobstructing bilateral renal calculi. 3. Thick-walled urinary bladder with right-sided bladder diverticulum. 4. Tiny calcification within left side of the urinary bladder consistent with probable bladder calculus. 5. 10 mm right renal cyst. 6. Multiple compression deformities involving the lumbar and lower thoracic spine with worst compression deformity identified at T10. 7. Degenerative changes throughout the thoracolumbar spine. 8. Multilevel spinal stenoses within the lumbar spine. 9. Small umbilical hernia containing only fat. Chest CTA 05/10/18 10:37 CONCLUSION: 1. No evidence of pulmonary embolism. 2. Minimal scattered atelectasis and/or scarring. 3. Tiny calcified granuloma within the left upper lobe. 4. Multiple compression deformities involving the thoracic spine with kyphosis of the lower thoracic spine related to the most severe compression deformity. 5. Degenerative changes throughout the thoracic spine. Thoracic Spine MRI 05/11/18 00:00 CONCLUSION: 1. Multiple chronic compression deformities are noted within the thoracic spine with severe compression fracture at T10, moderate to severe compression fractures at T11 and T8, moderate compression fracture at T9 and mild compression fractures at T5, T6, T7, and T12. Mild to moderate compression fractures are also noted involving L1 and L2. No acute compression deformity is noted. 2. Mild spinal stenosis at T10-11, L1-2 and L2-3. 3. Grade I retrolisthesis of T10 relation to T9 and T11. Discharge Plan - Discharge Disposition Patient Disposition: 65 Disc To [facility] - Discharge Condition Condition: Stable - Discharge Order Discharge Orders: Discharge Order (Routine); Ordered 05/12/18 Ordered By: Preston Jimenez - Discharge Details Anticipated Discharge Date: 05/10/18 - Physicians Team Primary Care Provider: UNKNOWN, Attending Provider: Preston Jimenez Other Providers: Moshe Allen MD ; Mathieu Contreras MD
[2018-05-12 13:12] VITALS: BP 125/58; PULSE 87; TEMP 97.9
--- NOTE | 2018-05-19 10:22 | P.CONPSY ---
Provisional Diagnosis Admission Date: May 10, 2018 17:43 [place] I.: Bipolar depression, r/o substance-induced mood disorder, cocaine and heroine use disorder [place] II.: Deferred [place] III.: DVT, PE, RA, umbilical hernia, vertebral Fx History of Present Illness Service: Medic[facility] Primary Care Provider: UNKNOWN Family Provider: No Primary Care Physician Chief Complaint: Suicidal Ideation, Substance Abuse History of Present Illness: Mr. 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 He reports that 5-6 days ago he used crack cocaine and ingested "a handful of pills and drank 3-4 tall boy beers" with the intent of committing suicide due to depression. He states that he was unconscious most of the time and was discovered by the hotel custodian who called EMS at the patients request due to intense abdominal/chest pain in addition to "the fact I hadn't yet and what I tried wasn't working". He was worked up in ED for PE/DVT, Abdominal Pain, Back Pain, and Bilateral LE Weakness. Jay Act was placed due to reports of suicidal ideation. He states that he is "very depressed and feels all alone" as his recently left him, his mother (whom he was living with) was placed in an NAA, all 5 of his children live in [facility], and he can no longer work due vertebral fractures. He began using Marijuana at a young age which evolved into EtOH, crack cocaine, heroin, and IV Dilaudid over the years. He states that he uses crack cocaine to "get back to baseline" and heroin/Dilaudid for his chronic pain. He was hospitalized at [facility] for a previous suicide attempt 3-4yrs ago via overdose of pain pills during a depressive episode after which he was diagnosed with Bipolar I and successfully detoxed and treated for psych disorders for about 2yrs. He d/c his psych meds 1.5yrs ago stating "I thought I was better" and began using illicit drugs again in July 2017. He states that his mood often fluctuates between manic and depression where he "feels like a failure, because I can't work, I'm all alone, and I can't even kill myself." He endorses a hx of auditory and visual hallucinations. He denies tactile hallucinations or withdrawal symptoms at this time. He denies any fever, chills, night sweats, chest pain, sob, sleepiness, changes in sleep, or changes in defecation/ urination. He states that he was once told that he had Hepatitis B but denies Hep C, HIV/AIDS, or TB. He states that he knows he shouldn't kill himself and that his family loves him but he doesn't want them to see him like this. He states that he wants help for his drug addiction, suicidal ideation, and psychiatric problems. He is concerned that if he is all alone that he will try to kill himself again but denies wanting to cause harm to anyone else. [facility], [facility] - History History Provided By: Patient - Medical History Medical History: Medical History (Last Reviewed 05/14/18 @ 07:49 by Germain Murray) Alcohol abuse Cocaine abuse DVT (deep venous thrombosis) Depression Heroin abuse Pulmonary embolism Septic shock - Surgical History Surgical History: Surgical History (Last Reviewed 05/14/18 @ 07:49 by Germain Murray) H/O knee surgery History of appendectomy History of tonsillectomy - Family History Family History: Family History (Last Updated 05/10/18 @ 19:42 by Preston Jimenez MD) Other Family history non-contributory - Tobacco History Second Hand Smoke Exposure: Yes Tobacco Use In Past 30 Days: Yes Smoking Status: Current every day smoker Tobacco Type: Cigarettes - Alcohol History How Often Do You Have a Drink Containing Alcohol: 4 or more times a week - Substance Use History Substance History: Active Abuse - Substance Use Type Alcohol Status: Active Route Used: By Mouth Reason for Use: Calm Down, Feels Good Heroin Status: Early Remission Route Used: Inhalation Reason for Use: Feels Good, Get High Crack/Cocaine Status: Active Route Used: Inhalation Frequency: Used for a few days about 4-5 days ago Reason for Use: Get High, Hurt Myself Comment: Patient states he used drugs because he is depressed. - Travel History Recent Travel in the [facility] Within the Last 8 Weeks: No Recent Travel Out of the Country Within the Last 8 Weeks: No - Immunization History Tetanus Immunization: >5 Years Hx Influenza Vaccine This Season: Yes Medications and Allergies Active Medications: Active Medications Acetaminophen (Tylenol) 650 mg PO Q4H PRN PRN Reason: PAIN 1-10 AND/OR FEVER >101F Last Admin: 05/12/18 08:15 Dose: 650 mg Al Hydroxide/Mg Hydroxide (Milk Of Magnesia Liq) 30 ml PO Q12H PRN PRN Reason: Mild Constipation Apixaban (Eliquis) 2.5 mg PO DAILY [facility] Last Admin: 05/12/18 08:11 Dose: 2.5 mg Bisacodyl (Dulcolax Supp) 10 mg RECTAL DAILY PRN PRN Reason: SEVERE CONSITIPATION Sodium Chloride (Ns Inj) 1,000 mls @ 0 mls/hr IV.SIG BOLUS [facility] Last Infusion: 05/10/18 15:31 Dose: Infused Sodium Chloride (Ns Inj) 1,000 mls @ 100 mls/hr IV.CONT .Q10H [facility] Last Infusion: 05/12/18 12:00 Dose: Infused Lactulose (Lactulose Liq) 30 ml PO DAILY PRN PRN Reason: SEVERE CONSITIPATION Sennosides (Senokot) 17.2 mg PO Q12H PRN PRN Reason: Moderate Constipation Thiamine HCl (Vitamin B1) 200 mg PO BID [facility] Last Admin: 05/12/18 08:11 Dose: 200 mg Allergies Allergy/AdvReac Type Severity Reaction Status Date / Time shellfish derived Allergy Intermediate Swelling Verified 05/10/18 09:13 Mental Status Examination Appearance: Appropriate (Hospital gown, unshaven, good posture, just returned from MRI, sitter in room) Consciousness: Alert Orientation: x4 Speech: Unremarkable Language: Adequate Fund of Knowledge: Adequate Attention and Concentration: Adequate (good eye contact) Memory: Recent (intact), Remote (intact) Mood: Sad ("I'm all tore up. I don't want to be alone.") Affect: Sad (Tearful, Emotional during interview) Thought Process & Associations: Intact, Logical, Goal directed, Linear Thought Content: Preoccupations (+ SI, - HI, - Obsessions/Compulsions) Hallucination Type: None (HX of Visual/Auditory Hallucinations, but none at this moment) Delusion Type: Paranoid (Pt reports hx of paranoia ) Suicidal Ideation: Yes Suicidal Plan: No (Pt States "I find myself looking around the room for something I could use to kill myself with often") Suicidal Intention: Yes Homicidal Ideation: No (Pt states "I don't want anyone else to get hurt, just myself.") Homicidal Plan: No Homicidal Intention: No Insight: Adequate Judgment: Impulsive Assessment and Plan - Assessment (1) Bipolar depression Code(s): F31.30 - Bipolar disorder, current episode depressed, mild or moderate severity, unspecified Status: Acute - Plan Plan: On my psychiatric evaluation today I find a patient that presents objectively depressed, tearful throughout the interview, he seems to be fragile and vulnerable at times, he reports that he has been having symptoms of depression for at least 3 weeks, he describes his depression as an increased sense of hopelessness, helplessness, worthlessness, increased sensitivity to rejection, frustration, increased anxiety, increased use of recreational activating drugs, such as cocaine, persistent suicidal ideation without any specific plan. The patient reports as acute stressors, sense of abandonment by his family and friends, inability to work, decreased functionality, untreated medical conditions, noncompliance with psychotropics, increase recreational drug use, but at the same time he reports protective factors for suicidality such as the love of his family and sikhism belief. This is a patient with a psychiatric history of depression, bipolar disorder, previous psychiatric hospitalizations, self harming and suicidal attempts in the past, heroine and cocaine use disorder , poor impulse control, poor coping skills, and he has an increased risk of danger to self at this moment. The patient really benefit of psychiatric admission for stabilization and safety. Continue one-to-one in the medical floor. We will start Seroquel 25 mg twice daily for bipolar depression and to help the patient with impulsivity and anxiety. Patient may benefit of a low dose of benzodiazepine, but will be addressed in inpatient psychiatry. Patient also can benefit of long-term comprehensive rehabilitation program to be explore as an inpatient psychiatry too. Extensive support, motivation and psychoeducation provided. Patient will be transferred to psychiatry once medically stable. Justification for Continued Inpatient Stay: To be admitted in psychiatry
--- NOTE | 2018-05-24 15:21 | P.CONPSY ---
Provisional Diagnosis Admission Date: May 10, 2018 17:43 [place] I.: Bipolar depression, r/o substance-induced mood disorder, cocaine and heroine use disorder [place] II.: Deferred [place] III.: DVT, PE, RA, umbilical hernia, vertebral Fx History of Present Illness Service: Medicine Primary Care Provider: UNKNOWN Chief Complaint: Suicidal Ideation, Substance Abuse History of Present Illness: Late entry. The patient was originally seen May 11, 2018 Mr. 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 He reports that 5-6 days ago he used crack cocaine and ingested "a handful of pills and drank 3-4 tall boy beers" with the intent of committing suicide due to depression. He states that he was unconscious most of the time and was discovered by the hotel attendant who called EMS at the patients request due to intense abdominal/chest pain in addition to "the fact I hadn't yet and what I tried wasn't working". He was worked up in ED for PE/DVT, Abdominal Pain, Back Pain, and Bilateral LE Weakness. Jay Act was placed due to reports of suicidal ideation. He states that he is "very depressed and feels all alone" as his recently left him, his mother (whom he was living with) was placed in an CUSTODIAL, all 5 of his children live in [facility], and he can no longer work due vertebral fractures. He began using Marijuana at a young age which evolved into EtOH, crack cocaine, heroin, and IV Dilaudid over the years. He states that he uses crack cocaine to "get back to baseline" and heroin/Dilaudid for his chronic pain. He was hospitalized at [facility] for a previous suicide attempt 3-4yrs ago via overdose of pain pills during a depressive episode after which he was diagnosed with Bipolar I and successfully detoxed and treated for psych disorders for about 2yrs. He d/c his psych meds 1.5yrs ago stating "I thought I was better" and began using illicit drugs again in July 2017. He states that his mood often fluctuates between manic and depression where he "feels like a failure, because I can't work, I'm all alone, and I can't even kill myself." He endorses a hx of auditory and visual hallucinations. He denies tactile hallucinations or withdrawal symptoms at this time. He denies any fever, chills, night sweats, chest pain, sob, sleepiness, changes in sleep, or changes in defecation/ urination. He states that he was once told that he had Hepatitis B but denies Hep C, HIV/AIDS, or TB. He states that he knows he shouldn't kill himself and that his family loves him but he doesn't want them to see him like this. He states that he wants help for his drug addiction, suicidal ideation, and psychiatric problems. He is concerned that if he is all alone that he will try to kill himself again but denies wanting to cause harm to anyone else. Review of Systems Psychiatric: Reports depression, Reports mood swings, Reports thoughts of hurting/killing yourself PMF - History History Provided By: Patient - Medical History Medical History: Medical History (Last Reviewed 05/14/18 @ 07:49 by Germain Murray) Alcohol abuse Cocaine abuse DVT (deep venous thrombosis) Depression Heroin abuse Pulmonary embolism Septic shock - Surgical History Surgical History: Surgical History (Last Reviewed 05/14/18 @ 07:49 by Germain Murray) H/O knee surgery History of appendectomy History of tonsillectomy - Family History Family History: Family History (Last Updated 05/10/18 @ 19:42 by Preston Jimenez MD) Other Family history non-contributory - Tobacco History Second Hand Smoke Exposure: Yes Tobacco Use In Past 30 Days: Yes Smoking Status: Current every day smoker Tobacco Type: Cigarettes - Alcohol History How Often Do You Have a Drink Containing Alcohol: 4 or more times a week - Substance Use History Substance History: Active Abuse - Substance Use Type Alcohol Status: Active Route Used: By Mouth Reason for Use: Calm Down, Feels Good Heroin Status: Early Remission Route Used: Inhalation Reason for Use: Feels Good, Get High Crack/Cocaine Status: Active Route Used: Inhalation Frequency: Used for a few days about 4-5 days ago Reason for Use: Get High, Hurt Myself Comment: Patient states he used drugs because he is depressed. - Travel History Recent Travel in the [facility] Within the Last 8 Weeks: No Recent Travel Out of the Country Within the Last 8 Weeks: No - Immunization History Tetanus Immunization: >5 Years Hx Influenza Vaccine This Season: Yes Medications and Allergies Allergies Allergy/AdvReac Type Severity Reaction Status Date / Time shellfish derived Allergy Intermediate Swelling Verified 05/10/18 09:13 Exam Narrative: No EPS, no acute distress, no catatonia, no tremors, no psychomotor agitation retardation - Constitutional mild distress - Routine HEENT Exam Head: Present: normocephalic, atraumatic ENT: Present: mucous membranes moist, mucous membranes dry Mental Status Examination Appearance: Appropriate (Hospital gown, unshaven, good posture, just returned from MRI, sitter in room) Consciousness: Alert Orientation: x4 Speech: Unremarkable Language: Adequate Fund of Knowledge: Adequate Attention and Concentration: Adequate (good eye contact) Memory: Recent (intact), Remote (intact) Mood: Sad ("I'm all tore up. I don't want to be alone.") Affect: Sad (Tearful, Emotional during interview) Thought Process & Associations: Intact, Logical, Goal directed, Linear Thought Content: Preoccupations (+ SI, - HI, - Obsessions/Compulsions) Hallucination Type: None (HX of Visual/Auditory Hallucinations, but none at this moment) Delusion Type: Paranoid (Pt reports hx of paranoia ) Suicidal Ideation: Yes Suicidal Plan: No (Pt States "I find myself looking around the room for something I could use to kill myself with often") Suicidal Intention: Yes Homicidal Ideation: No (Pt states "I don't want anyone else to get hurt, just myself.") Homicidal Plan: No Homicidal Intention: No Insight: Adequate Judgment: Impulsive Assessment and Plan - Assessment (1) Bipolar depression Code(s): F31.30 - Bipolar disorder, current episode depressed, mild or moderate severity, unspecified Status: Acute - Plan Plan: On my psychiatric evaluation today I find a patient that presents objectively depressed, tearful throughout the interview, he seems to be fragile and vulnerable at times, he reports that he has been having symptoms of depression for at least 3 weeks, he describes his depression as an increased sense of hopelessness, helplessness, worthlessness, increased sensitivity to rejection, frustration, increased anxiety, increased use of recreational activating drugs, such as cocaine, persistent suicidal ideation without any specific plan. The patient reports as acute stressors, sense of abandonment by his family and friends, inability to work, decreased functionality, untreated medical conditions, noncompliance with psychotropics, increase recreational drug use, but at the same time he reports protective factors for suicidality such as the love of his family and rastafarian belief. This is a patient with a psychiatric history of depression, bipolar disorder, previous psychiatric hospitalizations, self harming and suicidal attempts in the past, heroine and cocaine use disorder , poor impulse control, poor coping skills, and he has an increased risk of danger to self at this moment. The patient really benefit of psychiatric admission for stabilization and safety. Continue one-to-one in the medical floor. We will start Seroquel 25 mg twice daily for bipolar depression and to help the patient with impulsivity and anxiety. Patient may benefit of a low dose of benzodiazepine, but will be addressed in inpatient psychiatry. Patient also can benefit of long-term comprehensive rehabilitation program to be explore as an inpatient psychiatry too. Extensive support, motivation and psychoeducation provided. Patient will be transferred to psychiatry once medically stable. Justification for Continued Inpatient Stay: Patient will be admitted in psychiatry
== END 2018-05-12 16:44 ==
LOC: NEPC 09:01 → INTOOBSV 12:42 → NEDA 12:42 → N04 18:27
PROVIDERS: ADMIT Internal Medicine; ATTEND Internal Medicine
DX: E86.0 Dehydration; R06.09 Other forms of dyspnea; S32.020S Wedge compression fracture of second lumbar vertebra, sequela; E87.2 Acidosis; K42.9 Umbilical hernia without obstruction or gangrene; I26.99 Other pulmonary embolism without acute cor pulmonale; F11.10 Opioid abuse, uncomplicated; M54.14 Radiculopathy, thoracic region; F10.10 Alcohol abuse, uncomplicated; R00.0 Tachycardia, unspecified; R45.851 Suicidal ideations; N32.3 Diverticulum of bladder; M06.9 Rheumatoid arthritis, unspecified; S22.060S Wedge compression fracture of T7-T8 vertebra, sequela; S22.050S Wedge compression fracture of T5-T6 vertebra, sequela; M48.04 Spinal stenosis, thoracic region; F14.20 Cocaine dependence, uncomplicated; Z79.52 Long term (current) use of systemic steroids; R06.03 Acute respiratory distress; N20.0 Calculus of kidney; A41.9 Sepsis, unspecified organism; Z79.01 Long term (current) use of anticoagulants; I82.409 Acute embolism and thrombosis of unspecified deep veins of unspecified lower extremity; R65.21 Severe sepsis with septic shock; Z79.899 Other long term (current) drug therapy; S22.080S Wedge compression fracture of T11-T12 vertebra, sequela; M54.9 Dorsalgia, unspecified; R53.1 Weakness; F17.210 Nicotine dependence, cigarettes, uncomplicated; N28.1 Cyst of kidney, acquired; S32.010S Wedge compression fracture of first lumbar vertebra, sequela; S22.070S Wedge compression fracture of T9-T10 vertebra, sequela; M48.061 Spinal stenosis, lumbar region without neurogenic claudication; K57.30 Diverticulosis of large intestine without perforation or abscess without bleeding; R06.02 Shortness of breath; Z86.718 Personal history of other venous thrombosis and embolism

== ENCOUNTER 2018-05-12 16:39 | Inpatient (IN) ==
[2018-05-13] MEDS ORDERED: Senna/Docusate Sodium 8.6/50 MG Tablet PO PRN (08:00)
[2018-05-13] MEDS ORDERED: Bisacodyl 10 MG Supp RECTAL PRN (08:00)
[2018-05-13] MEDS ORDERED: Aluminum/Magnesium/Simethacone Susp 30 ML UDC PO PRN (08:00)
[2018-05-13] MEDS: QUEtiapine 25 MG Tablet PO SCH ×2 (09:12→20:12)
[2018-05-13] MEDS: predniSONE 10 MG Tablet PO SCH ×2 (10:12→20:12)
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
--- NOTE | 2018-05-13 15:40 | ECG ---
Date Performed: 05/13/2018 Time Performed: 10:02:39 PTAGE: 52 years EKG: Sinus rhythm MARKED LEFT AXIS DEVIATION LOW QRS VOLTAGE IN PRECORDIAL LEADS PATTERN CONSISTENT WITH PULMONARY DIS EASE ABNORMAL ECG PREVIOUS TRACING : 05/10/2018 09.18 Since the previous tracing, no significant change noted DOCTOR: Mira Wylie Interpretating Date/Time 05/13/2018 15:39:09
--- NOTE | 2018-05-13 20:06 | P.CONIM ---
History of Present Illness Primary Care Provider: UNKNOWN Family Provider: No Primary Care Physician History of Present Illness: 52-year-old male with a history of rheumatoid arthritis on chronic prednisone, recent admission for rhabdomyolysis, presenting with SIRS, cocaine positivity, suicidal ideation, back pain. Patient was found to have multilevel spinal compression fractures likely secondary to chronic prednisone use. Patient was also treated for rhabdomyolysis anuric cocaine which improved. Neurosurgery was consulted and TLSO brace was placed. Patient is seen today in psychiatry. Patient says he is actually feeling all right. Denies any chest pain or shortness of breath. Denies nausea vomiting. Denies any muscle aches. He reports abdominal pain continues without worsening. Denies constipation. Denies dysuria. Review of Systems All other systems reviewed negative except as stated in HPI PMFSH - History History Provided By: Patient - Medical History Medical History: Medical History (Last Reviewed 05/10/18 @ 18:42 by Daysi Rodríguez RN) Alcohol abuse Cocaine abuse DVT (deep venous thrombosis) Depression Heroin abuse Pulmonary embolism Septic shock - Surgical History Surgical History: Surgical History (Last Updated 05/10/18 @ 19:42 by Preston Jimenez MD) H/O knee surgery History of appendectomy History of tonsillectomy - Family History Family History: Family History (Last Updated 05/10/18 @ 19:42 by Preston Jimenez MD) Other Family history non-contributory - Tobacco History Second Hand Smoke Exposure: Yes Smoking Status: Current every day smoker Tobacco Type: Cigarettes - Alcohol History How Often Do You Have a Drink Containing Alcohol: 4 or more times a week - Substance Use History Substance History: Active Abuse - Substance Use Type Heroin Status: Active Frequency: .5 grams per day for one week Last Used: 1 week ago Comment: Patient states he used .5 grams of Heroin daily for one week, prior to this hospitalization. Alcohol Status: Active Frequency: 2 4-packs per day for 1 week Last Used: 1 week ago Comment: Patient states he drank 2 4-packs of beer daily for one week, prior to this hospitalization. Patient states he was sober up until he binged. Crack/Cocaine Status: Active Frequency: 1 gram per day for 1 week Last Used: 1 week ago Comment: Patient states he used 1 gram of Cocaine daily for one week, prior to this hospitalization. Patient states he was sober up until he binged. Medications and Allergies Active Medications: Active Medications Acetaminophen (Tylenol) 650 mg PO Q4H PRN PRN Reason: Pain 1-5 or Temp >101F Al Hydrox/Mg Hydrox/Simethicone (Mag-Al Plus Susp Liq) 30 ml PO Q6H PRN PRN Reason: DYSPEPSIA Al Hydroxide/Mg Hydroxide (Milk Of Magnesia Liq) 30 ml PO Q12H PRN PRN Reason: Mild Constipation Apixaban (Eliquis) 2.5 mg PO DAILY [facility] Last Admin: 05/13/18 09:12 Dose: 2.5 mg Bisacodyl (Dulcolax Supp) 10 mg RECTAL DAILY PRN PRN Reason: SEVERE CONSITIPATION Diphenhydramine HCl (Benadryl) 50 mg PO HS PRN PRN Reason: INSOMNIA Hydroxyzine HCl (Atarax) 50 mg PO Q6H PRN PRN Reason: ANXIETY Lactulose (Lactulose Liq) 30 ml PO DAILY PRN PRN Reason: SEVERE CONSITIPATION Prednisone (Deltasone) 10 mg PO BID [facility] Last Admin: 05/13/18 10:12 Dose: 10 mg Quetiapine Fumarate (Seroquel) 25 mg PO BID [facility] Last Admin: 05/13/18 09:12 Dose: 25 mg Senna/Docusate Sodium (Tammy-Colace) 1 tab PO BID PRN PRN Reason: CONSTIPATION Sennosides (Senokot) 17.2 mg PO Q12H PRN PRN Reason: Moderate Constipation Thiamine HCl (Vitamin B1) 100 mg PO BID [facility] Last Admin: 05/13/18 09:12 Dose: 100 mg Allergies Allergy/AdvReac Type Severity Reaction Status Date / Time shellfish derived Allergy Intermediate Swelling Verified 05/10/18 09:13 Exam Vital signs: Vital Signs 05/13/18 06:00 05/13/18 18:00 Temperature 98.4 F 98.2 F Pulse Rate 84 88 Respiratory Rate 18 16 Blood Pressure 127/85 127/91 H Pulse Oximetry 94 L 97 Intake & Output 05/13/18 05/13/18 05/14/18 06:59 18:59 06:59 Intake Total 960 / 960 Balance 960 / 960 Weight 71.3 kg Intake: Oral 960 / 960 Other: # Voids 2 # Bowel Movements 0 Narrative: GENERAL: Patient is lying in bed. Appears comfortable. SKIN: Warm and dry. HEAD: Atraumatic. Normocephalic. EYES: Pupils equal and round. No scleral icterus. No injection or drainage. ENT: No nasal bleeding or discharge. Mucous membranes pink and moist. NECK: Trachea midline. No JVD. CARDIOVASCULAR: Regular rate and rhythm. RESPIRATORY: No accessory muscle use. Clear to auscultation. Breath sounds equal bilaterally. GASTROINTESTINAL: Abdomen soft, non-tender, nondistended. Hepatic and splenic margins not palpable. Nontender. Nondistended. Positive bowel sounds. MUSCULOSKELETAL: Extremities without clubbing, cyanosis, or edema. No obvious deformities. NEUROLOGICAL: Awake and alert. No obvious cranial nerve deficits. Motor grossly within normal limits. Five out of 5 muscle strength in the arms and legs. Normal speech. PSYCHIATRIC: Appropriate mood and affect; insight and judgment normal. Assessment and Plan - Plan Suicidal ideation. As per psychiatry. //Bilateral lower extremity weakness //Multilevel compression fractures with multilevel spinal stenosis //thoracic radiculopathy causing abdominal pain = Patient will need to continue using TLSO brace. Of consulted physical therapy to place brace, as well as a train patient staff. //Recent rhabdomyolysis. Appears resolved, however we will recheck basic labs, CPK. //CT abdomen with some incidental findings including kidney stone, bladder diverticulum //Tiny calcified granuloma in the left upper lobes seen on previous CT chest. = Patient will need to follow with primary care as outpatient for this. //Rheumatoid arthritis. //Chronic prednisone use. //Suspected and adrenal insufficiency = Continue prednisone 10 mg twice daily. Will plan to taper to 7.5 twice daily in the coming days. Will need to follow-up with rheumatology as outpatient for treatment of rheumatoid arthritis. //Cocaine abuse. Cessation counseling provided again. //E-cigarette abuse. Cessation counseling provided again. 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 Continue home anticoagulation. Discussed Condition With: Patient
[2018-05-14 08:21] LABS: Baso # (Auto) 0.1 th/mm3 (0.0-0.2); Baso % (Auto) 0.4 % (0.0-2.0); Eos % (Auto) 0.2 % (0.0-4.0); Hemoglobin 13.4 gm/dL (13.0-17.0); Lymph # (Auto) 3.2 th/mm3 (1.0-4.8); Lymph % (Auto) 24.6 % (9.0-44.0); Mean Corpuscular HGB Conc 32.6 % (32.0-36.0); Mean Corpuscular Hemoglobin 26.5 pg (27.0-34.0); Mean Corpuscular Volume 81.2 fL (80.0-100.0); Mean Platelet Volume 7.5 fL (7.0-11.0); Mono # (Auto) 0.9 th/mm3 (0.0-0.9); Mono % (Auto) 6.6 % (0.0-8.0); Neut # (Auto) 8.9 th/mm3 (1.8-7.7); Neut % (Auto) 68.2 % (16.0-70.0); Platelet Count 426 th/mm3 (150-450); Red Blood Count 5.06 mil/mm3 (4.50-5.90); Red Cell Distribution Width 18.2 % (11.6-17.2); White Blood Count 13.1 th/mm3 (4.0-11.0)
[2018-05-14] MEDS: predniSONE 10 MG Tablet PO SCH ×2 (08:24→20:43)
[2018-05-14] MEDS: QUEtiapine 25 MG Tablet PO SCH (08:24)
[2018-05-14 08:32] LABS: Albumin 2.6 g/dL (3.4-5.0); Anion Gap 8 meq/L (5-15); Blood Urea Nitrogen 9 mg/dL (7-18); Calcium 8.5 mg/dL (8.5-10.1); Carbon Dioxide 26.2 meq/L (21.0-32.0); Chloride 105 meq/L (98-107); Glomerular Filtration Rate Greater Than 89 mL/min (>89); Glucose,Random 86 mg/dL (74-106); Magnesium 2.1 mg/dL (1.5-2.5); Potassium 3.8 meq/L (3.5-5.1); Sodium 139 meq/L (136-145)
[2018-05-14 08:34] LABS: Cholesterol 176 mg/dL (120-200); Phosphorus 4.5 mg/dL (2.5-4.9); Triglycerides 120 mg/dL (42-150)
[2018-05-14 08:36] LABS: Chol/HDL Ratio 3.59 Ratio; Creatine Kinase 18 U/L (39-308); LDL Cholesterol,Calculated 103 mg/dL (0-99)
[2018-05-14] MEDS ORDERED: Haloperidol Inj 5 MG/ML Ampul IV.PUSH PRN (10:11)
[2018-05-14] MEDS ORDERED: LORazepam 1 MG Tablet PO PRN (10:11)
--- NOTE | 2018-05-14 10:59 | P.PNPSY ---
Subjective Remarks: Patient seen for follow up; chart reviewed. Discussion with nursing staff reported that patient compliant with medications and cooperative. Patient was found lying hospital bed noted B, cooperative. Patient states that he has some disturbance with his sleep last night due to his roommate. Patient denies any issues with appetite or bowel movement reports that his mood is still depressed and feeling frustrated this morning due to ongoing stressors. Patient reports having had suicide ideation this morning as well. Patient agrees to attend groups today. Review of Systems All other systems reviewed negative except as stated in HPI Mental Status Examination Appearance: Disheveled Consciousness: Alert Orientation: Person, Place, Date/Time Motor Activity: Normal gait Speech: Unremarkable Language: Adequate Fund of Knowledge: Inadequate Attention and Concentration: Adequate Memory: Unremarkable Mood: Sad Affect: Sad Thought Process & Associations: Intact Thought Content: Appropriate Hallucination Type: None Delusion Type: None Suicidal Ideation: Yes Suicidal Plan: No Suicidal Intention: No Homicidal Ideation: No Homicidal Plan: No Homicidal Intention: No Insight: Fair Judgment: Impulsive Assessment and Plan - Assessment (1) Adjustment disorder with depressed mood Code(s): F43.21 - Adjustment disorder with depressed mood Status: Acute (2) Polysubstance abuse Code(s): F19.10 - Other psychoactive substance abuse, uncomplicated Status: Acute - Plan Plan: Patient continues with depressed mood along with suicidal ideations but noted to be willing to participate in groups and activities. We will continue to titrate quetiapine to 50 mg p.o. twice daily with upper titration for mood stabilization. Continue rest of medications. Continue to monitor mood and behavior. Discharge planning a progress. Justification for Continued Inpatient Stay: At risk of further decompensation a lower level of care.
--- NOTE | 2018-05-14 13:34 | P.PN ---
Subjective Interval history: Follow-up for rheumatoid arthritis on chronic prednisone, recent admission for rhabdomyolysis, back pain, multilevel spinal compression fractures likely secondary to chronic prednisone use. Patient states he feels okay, has some abdominal pain, having regular bowel movements. No chest pain, no shortness of breath. No fever. No acute changes overnight Physical Exam Vital signs: Vital Signs 05/13/18 18:00 05/14/18 06:21 Temperature 98.2 F 97.7 F Pulse Rate 88 91 H Respiratory Rate 16 17 Blood Pressure 127/91 H 118/81 Pulse Oximetry 97 93 L Intake & Output 05/13/18 05/14/18 05/14/18 18:59 06:59 18:59 Intake Total 960 / 960 720 / 720 360 / 360 Balance 960 / 960 720 / 720 360 / 360 Intake: Oral 960 / 960 720 / 720 360 / 360 Other: # Voids 2 2 # Bowel Movements 0 Narrative: GENERAL: Patient is lying in bed. Appears comfortable. SKIN: Warm and dry. HEAD: Atraumatic. Normocephalic. EYES: Pupils equal and round. No scleral icterus. No injection or drainage. ENT: No nasal bleeding or discharge. Mucous membranes pink and moist. NECK: Trachea midline. No JVD. CARDIOVASCULAR: Regular rate and rhythm. RESPIRATORY: No accessory muscle use. Clear to auscultation. Breath sounds equal bilaterally. GASTROINTESTINAL: Abdomen soft,mildly tender mid abdomen, nondistended. Hepatic and splenic margins not palpable. Nontender. Nondistended. Positive bowel sounds. MUSCULOSKELETAL: Extremities without clubbing, cyanosis, or edema. No obvious deformities. NEUROLOGICAL: Awake and alert. No obvious cranial nerve deficits. Motor grossly within normal limits. Five out of 5 muscle strength in the arms and legs. Normal speech. PSYCHIATRIC: Appropriate mood and affect; insight and judgment normal. Results - Labs CBC & Chem 7: 05/14/18 07:35 05/14/18 07:35 Laboratory Results - last 24 hr 05/14/18 05/14/18 07:35 07:35 WBC 13.1 H RBC 5.06 Hgb 13.4 Hct 41.0 MCV 81.2 MCH 26.5 L MCHC 32.6 RDW 18.2 H Plt Count 426 MPV 7.5 Neut % (Auto) 68.2 Lymph % (Auto) 24.6 [place] % (Auto) 6.6 Eos % (Auto) 0.2 Baso % (Auto) 0.4 Neut # (Auto) 8.9 H Lymph # (Auto) 3.2 [place] # (Auto) 0.9 Eos # (Auto) 0.0 Baso # (Auto) 0.1 WBC Differential . Differential Comment Auto diff final Sodium 139 Potassium 3.8 Chloride 105 Carbon Dioxide 26.2 Anion Gap 8 BUN 9 Creatinine 0.65 Estimated GFR Greater than 89 Random Glucose 86 Calcium 8.5 Phosphorus 4.5 Magnesium 2.1 Total Creatine Kinase 18 L Albumin 2.6 L Triglycerides 120 Cholesterol 176 LDL Cholesterol, Calc 103 H HDL Cholesterol 49.0 Cholesterol/HDL Ratio 3.59 Assessment and Plan - Plan 52-year-old male with a history of rheumatoid arthritis on chronic prednisone, recent admission for rhabdomyolysis, presenting with SIRS, cocaine positivity, suicidal ideation, back pain. Patient was found to have multilevel spinal compression fractures likely secondary to chronic prednisone use. Patient was also treated for rhabdomyolysis which improved. Neurosurgery was consulted and TLSO brace was placed. [facility] consulted for medical management Suicidal ideation. -As per psychiatry. Bilateral lower extremity weakness Multilevel compression fractures with multilevel spinal stenosis thoracic radiculopathy causing abdominal pain -Continue with TLSO brace. -PT to assist with mobility and to assist staff with placing brace correctly. Recent rhabdomyolysis-resolved -labs reviewed, CPK back to normal. CT abdomen with some incidental findings including kidney stone, bladder diverticulum Tiny calcified granuloma in the left upper lobes seen on previous CT chest. -Patient will need to follow with primary care as outpatient for this. Rheumatoid arthritis. Chronic prednisone use. Suspected and adrenal insufficiency -Continue prednisone 10 mg twice daily. Will plan to taper to 7.5 twice daily in the coming days. -Will need to follow-up with rheumatology as outpatient for treatment of rheumatoid arthritis. Cocaine abuse. -Cessation counseling provided again. E-cigarette abuse. -Cessation counseling provided again. 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 -Continue Eliquis Labs reviewed, stable. Code Status: full code Discussed Condition With: RN, pt. Discharge Planning: Per psych team
[2018-05-14] MEDS: Acetaminophen 325 MG Tablet PO PRN (14:57)
[2018-05-14 15:29] LABS: Hemoglobin A1c 5.6 % (4.3-6.0)
[2018-05-14] MEDS ORDERED: QUEtiapine 25 MG Tablet PO SCH (21:00)
--- NOTE | 2018-05-15 08:18 | P.PNPSY ---
Subjective Remarks: Patient seen for follow, chart reviewed. Discussion nursing staff reported the patient with low CIWA scores, difficulty with sleep last evening due to her roommate. Patient was found lying hospital bed noted B, cooperative. Patient states that he had difficulty sleeping as his roommate was disruptive last night. He reports his mood is continue to feel depressed and frustrated but states that his lessening. Patient continues to have intermittent suicide ideation with thinking about his psychosocial stressors. He denies any perceptional services or paranoid ideations today. Review of Systems All other systems reviewed negative except as stated in HPI Mental Status Examination Appearance: Disheveled Consciousness: Alert Orientation: Person, Place, Date/Time Motor Activity: Normal gait Speech: Unremarkable Language: Adequate Fund of Knowledge: Inadequate Attention and Concentration: Adequate Memory: Unremarkable Mood: Sad Affect: Sad Thought Process & Associations: Intact Thought Content: Appropriate Hallucination Type: None Delusion Type: None Suicidal Ideation: Yes (Intermittent) Suicidal Plan: No Suicidal Intention: No Homicidal Ideation: No Homicidal Plan: No Homicidal Intention: No Insight: Fair Judgment: Impulsive Assessment and Plan - Assessment (1) Adjustment disorder with depressed mood Code(s): F43.21 - Adjustment disorder with depressed mood Status: Acute (2) Polysubstance abuse Code(s): F19.10 - Other psychoactive substance abuse, uncomplicated Status: Acute - Plan Plan: Patient continues with depressed mood but states that is improving, continues to have intermittent suicide ideations at this time. Patient CIWA scores are low, continue to be followed by hospitalist team and if cleared we will consider moving patient to [address]. We will increase quetiapine to 50 mg a.m. /100 mg at bedtime for mood stabilization. We will continue to monitor mood and behavior. Hospitalist input appreciated. Discharge planning in progress. Justification for Continued Inpatient Stay: At risk of further decompensation a low level of care.
[2018-05-15] MEDS: predniSONE 10 MG Tablet PO SCH ×2 (08:27→21:15)
[2018-05-15] MEDS: QUEtiapine 25 MG Tablet PO SCH (08:28)
--- NOTE | 2018-05-15 13:16 | P.PN ---
Subjective Interval history: Follow-up for rheumatoid arthritis on chronic prednisone, recent admission for rhabdomyolysis, back pain, multilevel spinal compression fractures likely secondary to chronic prednisone use. Doing okay, some abd. pain. Did not sleep well, his roommate was disruptive. No cp, no sob. No fever. Physical Exam Vital signs: Vital Signs 05/14/18 17:31 05/15/18 05:57 Temperature 98.1 F 98 F Pulse Rate 105 H 90 Respiratory Rate 17 17 Blood Pressure 121/75 126/77 Pulse Oximetry 95 93 L Intake & Output 05/14/18 05/15/18 05/15/18 18:59 06:59 18:59 Intake Total 2280 / 2280 840 / 840 1920 / 1920 Balance 2280 / 2280 840 / 840 1920 / 1920 Intake: Oral 2280 / 2280 840 / 840 1920 / 1920 Other: # Voids 5 Narrative: GENERAL: Patient is lying in bed. Appears comfortable. SKIN: Warm and dry. HEAD: Atraumatic. Normocephalic. EYES: Pupils equal and round. No scleral icterus. No injection or drainage. ENT: No nasal bleeding or discharge. Mucous membranes pink and moist. NECK: Trachea midline. No JVD. CARDIOVASCULAR: Regular rate and rhythm. RESPIRATORY: No accessory muscle use. Clear to auscultation. Breath sounds equal bilaterally. GASTROINTESTINAL: Abdomen soft,mildly tender mid abdomen, nondistended. Hepatic and splenic margins not palpable. Nontender. Nondistended. Positive bowel sounds. MUSCULOSKELETAL: Extremities without clubbing, cyanosis, or edema. No obvious deformities. NEUROLOGICAL: Awake and alert. No obvious cranial nerve deficits. Motor grossly within normal limits. Five out of 5 muscle strength in the arms and legs. Normal speech. PSYCHIATRIC: Appropriate mood and affect; insight and judgment normal. Results - Labs CBC & Chem 7: 05/14/18 07:35 05/14/18 07:35 Laboratory Results - last 24 hr 05/14/18 07:35 Hemoglobin A1c 5.6 Assessment and Plan - Plan 52-year-old male with a history of rheumatoid arthritis on chronic prednisone, recent admission for rhabdomyolysis, presenting with SIRS, cocaine positivity, suicidal ideation, back pain. Patient was found to have multilevel spinal compression fractures likely secondary to chronic prednisone use. Patient was also treated for rhabdomyolysis which improved. Neurosurgery was consulted and TLSO brace was placed. [facility] consulted for medical management Suicidal ideation. -As per psychiatry. Bilateral lower extremity weakness Multilevel compression fractures with multilevel spinal stenosis thoracic radiculopathy causing abdominal pain -Continue with TLSO brace. -PT to assist with mobility and to assist staff with placing brace correctly. Recent rhabdomyolysis-resolved -labs reviewed, CPK back to normal. CT abdomen with some incidental findings including kidney stone, bladder diverticulum Tiny calcified granuloma in the left upper lobes seen on previous CT chest. -Patient will need to follow with primary care as outpatient for this. Rheumatoid arthritis. Chronic prednisone use. Suspected and adrenal insufficiency -Continue prednisone 10 mg twice daily. Will plan to taper to 7.5 twice daily in the coming days. -Will need to follow-up with rheumatology as outpatient for treatment of rheumatoid arthritis. Cocaine abuse. -Cessation counseling provided again. E-cigarette abuse. -Cessation counseling provided again. 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 -Continue Eliquis Stable to transfer to main psych floor. 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
[2018-05-15] MEDS: QUEtiapine 100 MG Tablet PO SCH (21:15)
[2018-05-15] MEDS: Acetaminophen 325 MG Tablet PO PRN (21:15)
[2018-05-16] MEDS: predniSONE 10 MG Tablet PO SCH ×2 (09:20→21:12)
[2018-05-16] MEDS: QUEtiapine 25 MG Tablet PO SCH (09:26)
--- NOTE | 2018-05-16 14:30 | P.PNPSY ---
Subjective Remarks: Reviewed electronic medical records and discussed case with staff. Follow-up was conducted in patient's room with the nurse. He is lying in his bed flat and states that he is having alot of back pain, requesting motrin. He denies any suicidal plan or intention. He states that he is doing well except for the pain, He is finding it difficult to get comfortable to sleep. Review of Systems All other systems reviewed negative except as stated in HPI Mental Status Examination Appearance: Disheveled Consciousness: Alert Orientation: Person, Place, Date/Time Motor Activity: Normal gait Speech: Unremarkable Language: Adequate Fund of Knowledge: Inadequate Attention and Concentration: Adequate Memory: Unremarkable Mood: Sad Affect: Sad Thought Process & Associations: Intact Thought Content: Appropriate Hallucination Type: None Delusion Type: None Suicidal Ideation: No Suicidal Plan: No Suicidal Intention: No Homicidal Ideation: No Homicidal Plan: No Homicidal Intention: No Insight: Fair Judgment: Impulsive Assessment and Plan - Assessment (1) Adjustment disorder with depressed mood Code(s): F43.21 - Adjustment disorder with depressed mood Status: Acute (2) Polysubstance abuse Code(s): F19.10 - Other psychoactive substance abuse, uncomplicated Status: Acute - Plan Plan: Continue current treatment plan. He will be seen by his psychiatrist on Thursday. Justification for Continued Inpatient Stay: Moving patient to a less restrictive environment may result in his decompensation.
[2018-05-16] MEDS ORDERED: Ibuprofen 600 MG Tablet PO ONE (14:45)
--- NOTE | 2018-05-16 14:48 | P.PN ---
Subjective Interval history: Follow-up for rheumatoid arthritis on chronic prednisone, recent admission for rhabdomyolysis, back pain, multilevel spinal compression fractures likely secondary to chronic prednisone use. Doing okay, some abd. pain. Having back pain, difficult to get out of bed. No fever. No CP, no SOB. Physical Exam Vital signs: Vital Signs 05/15/18 18:15 05/15/18 22:15 05/16/18 05:55 Temperature 97.9 F 98 F Pulse Rate 122 H 86 Respiratory Rate 16 16 17 Blood Pressure 132/82 118/65 Pulse Oximetry 97 94 L Intake & Output 05/15/18 05/16/18 05/16/18 18:59 06:59 18:59 Intake Total 1919 340 / 340 Balance 1919 340 / 340 Intake: Oral 1919 240 / 240 Oral Supplement 100 / 100 Other: # Voids 1 # Bowel Movements 0 Narrative: GENERAL: Patient is lying in bed. Appears comfortable. SKIN: Warm and dry. HEAD: Atraumatic. Normocephalic. EYES: Pupils equal and round. No scleral icterus. No injection or drainage. ENT: No nasal bleeding or discharge. Mucous membranes pink and moist. NECK: Trachea midline. No JVD. CARDIOVASCULAR: Regular rate and rhythm. RESPIRATORY: No accessory muscle use. Clear to auscultation. Breath sounds equal bilaterally. GASTROINTESTINAL: Abdomen soft,mildly tender mid abdomen, nondistended. Hepatic and splenic margins not palpable. Nontender. Nondistended. Positive bowel sounds. MUSCULOSKELETAL: Extremities without clubbing, cyanosis, or edema. No obvious deformities. NEUROLOGICAL: Awake and alert. No obvious cranial nerve deficits. Motor grossly within normal limits. Five out of 5 muscle strength in the arms and legs. Normal speech. PSYCHIATRIC: Appropriate mood and affect; insight and judgment normal. Results - Labs CBC & Chem 7: 05/14/18 07:35 05/14/18 07:35 Assessment and Plan - Plan 52-year-old male with a history of rheumatoid arthritis on chronic prednisone, recent admission for rhabdomyolysis, presenting with SIRS, cocaine positivity, suicidal ideation, back pain. Patient was found to have multilevel spinal compression fractures likely secondary to chronic prednisone use. Patient was also treated for rhabdomyolysis which improved. Neurosurgery was consulted and TLSO brace was placed. [facility] consulted for medical management Suicidal ideation. -As per psychiatry. Bilateral lower extremity weakness Multilevel compression fractures with multilevel spinal stenosis thoracic radiculopathy causing abdominal pain -Continue with TLSO brace. -PT to assist with mobility and to assist staff with placing brace correctly. -Add Lidocaine patch and Flexeril 5 mg po q 8 PRN Recent rhabdomyolysis-resolved -labs reviewed, CPK back to normal. CT abdomen with some incidental findings including kidney stone, bladder diverticulum Tiny calcified granuloma in the left upper lobes seen on previous CT chest. -Patient will need to follow with primary care as outpatient for this. Rheumatoid arthritis. Chronic prednisone use. Suspected and adrenal insufficiency -Continue prednisone 10 mg twice daily. Will plan to taper to 7.5 twice daily in the coming days. -Will need to follow-up with rheumatology as outpatient for treatment of rheumatoid arthritis. Cocaine abuse. -Cessation counseling provided again. E-cigarette abuse. -Cessation counseling provided again. 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
[2018-05-16] MEDS: Lidocaine 5% Patch T-DERMAL SCH (15:45)
--- NOTE | 2018-05-16 15:55 | P.PN ---
Subjective Interval history: Follow-up for rheumatoid arthritis on chronic prednisone, recent admission for rhabdomyolysis, back pain, multilevel spinal compression fractures likely secondary to chronic prednisone use. Complaining of significant back pain radiating to abdomen. Does not have brace in place. Has not been able to get out of bed because his back is hurting too much. Is having spasms. Denies any chest pain or shortness of breath. Patient is voiding well. Appetite is okay. No fever. Physical Exam Vital signs: Vital Signs 05/15/18 18:15 05/15/18 22:15 05/16/18 05:55 Temperature 97.9 F 98 F Pulse Rate 122 H 86 Respiratory Rate 16 16 17 Blood Pressure 132/82 118/65 Pulse Oximetry 97 94 L Intake & Output 05/15/18 05/16/18 05/16/18 18:59 06:59 18:59 Intake Total 1920 / 1920 340 / 340 Balance 1920 / 1920 340 / 340 Intake: Oral 1920 / 1920 240 / 240 Oral Supplement 100 / 100 Other: # Voids 1 # Bowel Movements 0 Narrative: GENERAL: Patient is lying in bed. Appears comfortable. SKIN: Warm and dry. HEAD: Atraumatic. Normocephalic. EYES: Pupils equal and round. No scleral icterus. No injection or drainage. ENT: No nasal bleeding or discharge. Mucous membranes pink and moist. NECK: Trachea midline. No JVD. CARDIOVASCULAR: Regular rate and rhythm. RESPIRATORY: No accessory muscle use. Clear to auscultation. Breath sounds equal bilaterally. GASTROINTESTINAL: Abdomen soft,mildly tender mid abdomen, nondistended. Hepatic and splenic margins not palpable. Nontender. Nondistended. Positive bowel sounds. MUSCULOSKELETAL: Extremities without clubbing, cyanosis, or edema. No obvious deformities. NEUROLOGICAL: Awake and alert. No obvious cranial nerve deficits. Motor grossly within normal limits. Five out of 5 muscle strength in the arms and legs. Normal speech. PSYCHIATRIC: Appropriate mood and affect; insight and judgment normal. Results - Labs CBC & Chem 7: 05/14/18 07:35 05/14/18 07:35 Assessment and Plan - Plan 52-year-old male with a history of rheumatoid arthritis on chronic prednisone, recent admission for rhabdomyolysis, presenting with SIRS, cocaine positivity, suicidal ideation, back pain. Patient was found to have multilevel spinal compression fractures likely secondary to chronic prednisone use. Patient was also treated for rhabdomyolysis which improved. Neurosurgery was consulted and TLSO brace was placed. [facility] consulted for medical management Suicidal ideation. -As per psychiatry. Bilateral lower extremity weakness Multilevel compression fractures with multilevel spinal stenosis thoracic radiculopathy causing abdominal pain -Continue with TLSO brace. -Patient was transferred to [facility], TLSO brace is not in his room. Order placed for patient to wear TLSO brace when out of bed and to continue with physical therapy. -Complaining of significant pain and muscle spasms, will order Flexeril 5 mg p.o. every 8 as needed as well as lidocaine patch. Recent rhabdomyolysis-resolved -labs reviewed, CPK back to normal. CT abdomen with some incidental findings including kidney stone, bladder diverticulum Tiny calcified granuloma in the left upper lobes seen on previous CT chest. -Patient will need to follow with primary care as outpatient for this. Rheumatoid arthritis. Chronic prednisone use. Suspected and adrenal insufficiency -Continue prednisone 10 mg twice daily. Will plan to taper to 7.5 twice daily in the coming days. Dose was decreased on 05/11/2018. -Will need to follow-up with rheumatology as outpatient for treatment of rheumatoid arthritis. Cocaine abuse. -Cessation counseling provided again. E-cigarette abuse. -Cessation counseling provided again. 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
[2018-05-16] MEDS: Famotidine 20 MG Tablet PO SCH (21:12)
[2018-05-16] MEDS: QUEtiapine 100 MG Tablet PO SCH (21:12)
[2018-05-16] MEDS: Acetaminophen 325 MG Tablet PO PRN (21:14)
[2018-05-17 06:09] VITALS: O2SAT 96
[2018-05-17] MEDS: Famotidine 20 MG Tablet PO SCH ×2 (09:08→20:42)
[2018-05-17] MEDS: predniSONE 10 MG Tablet PO SCH (09:08)
[2018-05-17] MEDS: QUEtiapine 25 MG Tablet PO SCH ×2 (09:08→20:43)
[2018-05-17] MEDS: Lidocaine 5% Patch T-DERMAL SCH (09:08)
--- NOTE | 2018-05-17 16:33 | P.PN ---
Subjective Interval history: Follow-up for rheumatoid arthritis on chronic prednisone, recent admission for rhabdomyolysis, back pain, multilevel spinal compression fractures likely secondary to chronic prednisone use. Slept better, pain better controlled. States he feels a little sleepy secondary to Flexeril. Physical therapy has not seen, still does not have TLSO brace in place. No chest pain, shortness of breath. Abdomen is sore. Eating okay. Today he was able to get up and clean himself. States he is having a better day. Physical Exam Vital signs: Vital Signs 05/16/18 17:43 05/16/18 22:15 05/17/18 06:04 Temperature 97.2 F L 98 F Pulse Rate 106 H 83 Respiratory Rate 18 16 16 Blood Pressure 120/63 110/67 Pulse Oximetry 92 L 96 Intake & Output 05/16/18 05/17/18 05/17/18 18:59 06:59 18:59 Weight 71.2 kg Other: # Voids 1 Narrative: GENERAL: Patient is lying in bed. Appears comfortable. SKIN: Warm and dry. HEAD: Atraumatic. Normocephalic. EYES: Pupils equal and round. No scleral icterus. No injection or drainage. ENT: No nasal bleeding or discharge. Mucous membranes pink and moist. NECK: Trachea midline. No JVD. CARDIOVASCULAR: Regular rate and rhythm. RESPIRATORY: No accessory muscle use. Clear to auscultation. Breath sounds equal bilaterally. GASTROINTESTINAL: Abdomen soft,mildly tender mid abdomen, nondistended. Hepatic and splenic margins not palpable. Nontender. Nondistended. Positive bowel sounds. MUSCULOSKELETAL: Extremities without clubbing, cyanosis, or edema. No obvious deformities. NEUROLOGICAL: Awake and alert. No obvious cranial nerve deficits. Motor grossly within normal limits. Five out of 5 muscle strength in the arms and legs. Normal speech. PSYCHIATRIC: Appropriate mood and affect; insight and judgment normal. Results - Labs CBC & Chem 7: 05/14/18 07:35 05/14/18 07:35 Assessment and Plan - Plan 52-year-old male with a history of rheumatoid arthritis on chronic prednisone, recent admission for rhabdomyolysis, presenting with SIRS, cocaine positivity, suicidal ideation, back pain. Patient was found to have multilevel spinal compression fractures likely secondary to chronic prednisone use. Patient was also treated for rhabdomyolysis which improved. Neurosurgery was consulted and TLSO brace was placed. [facility] consulted for medical management Suicidal ideation. -As per psychiatry. Bilateral lower extremity weakness Multilevel compression fractures with multilevel spinal stenosis thoracic radiculopathy causing abdominal pain -Continue with TLSO brace. -continue Lidocaine patch and Flexeril 5 mg po q 8 PRN -Reconsult physical therapy for mobility and to assist with TLSO brace. Recent rhabdomyolysis-resolved -labs reviewed, CPK back to normal. CT abdomen with some incidental findings including kidney stone, bladder diverticulum Tiny calcified granuloma in the left upper lobes seen on previous CT chest. -Patient will need to follow with primary care as outpatient for this. Rheumatoid arthritis. Chronic prednisone use. Suspected and adrenal insufficiency -Decrease prednisone 7.5 twice a day, continue to taper off slowly. -Will need to follow-up with rheumatology as outpatient for treatment of rheumatoid arthritis. Cocaine abuse. -Cessation counseling provided again. E-cigarette abuse. -Cessation counseling provided again. 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 -Continue Eliquis Code Status: Full code Discussed Condition With: RN, pt Discharge Planning: Per psych team
[2018-05-17] MEDS: Acetaminophen 325 MG Tablet PO PRN (16:34)
--- NOTE | 2018-05-17 16:55 | P.PNPSY ---
Subjective Remarks: Patient seen for follow-up, chart reviewed. Discussion with nursing staff reported that patient no behavioral services continues to have intermittent suicide ideation with no plan. Patient was found lying hospital bed noted B, cooperative. Patient states that his weekend went "good" reporting having attended some groups and watch television. Patient reports his mood is being "okay" reports having intermittent suicide ideations but stating that he is getting "further apart". Patient reports feeling better with the Flexeril and lidocaine patch and continues to be interested in rehabilitation program and also will living facility upon discharge. Review of Systems All other systems reviewed negative except as stated in HPI Mental Status Examination Appearance: Appropriate Consciousness: Alert Orientation: Person, Place, Date/Time Motor Activity: Normal gait Speech: Unremarkable Language: Adequate Fund of Knowledge: Inadequate Attention and Concentration: Adequate Memory: Unremarkable Mood: Sad (Lessening) Affect: Appropriate Thought Process & Associations: Intact Thought Content: Appropriate Hallucination Type: None Delusion Type: None Suicidal Ideation: Yes (Intermittent) Suicidal Plan: No Suicidal Intention: No Homicidal Ideation: No Homicidal Plan: No Homicidal Intention: No Insight: Fair Judgment: Impulsive Assessment and Plan - Assessment (1) Adjustment disorder with depressed mood Code(s): F43.21 - Adjustment disorder with depressed mood Status: Acute (2) Polysubstance abuse Code(s): F19.10 - Other psychoactive substance abuse, uncomplicated Status: Acute - Plan Plan: Patient this time continues to be noted with improvement in mood, reporting lessening of suicide ideations with continue to be present intermittently. We will continue to titrate quetiapine to 50 mg a.m./150 mg at bedtime for mood stabilization. Continue rest of medications. Continue to monitor mood and behavior. Discharge planning a progress. Justification for Continued Inpatient Stay: At risk of further decompensation at lower level care.
[2018-05-17] MEDS: QUEtiapine 100 MG Tablet PO SCH (20:43)
[2018-05-17] MEDS: predniSONE 5 MG Tablet PO SCH (20:44)
--- NOTE | 2018-05-18 08:36 | P.TTN ---
- Patient Problems Problems: 1. Discharge planning 2. Medication compliance 3. Knowledge deficit 4. Lack of coping skills - Progress Toward Goals Provider Present: Dr. Shelbi Donis Provider Input: 05/17: Pt resides with mother, unemployed, depressed, transferred from [id number], sober living placement for substance abuse Nurse(s) Present: Chikis Nurse Input: 05/17: Compliant and cooperative, suffers from back fractures which causes difficulty ambulating, SI sometimes with no plan Psychiatric Counselors Present: Tiago Johnson Jr., [facility] Psychiatric Therapist Input: 05/17: Possible Sober living placement Group Spec/RT/OT/CAVANAUGH Present: AFSHAN Fontenot, Tristan Hebert, OT Group Spec/RT/OT/CVAANAUGH Input: 05/17: Pt attends select groups appropriately, limited due to pain in back Clinical Coordinator: Debbie Macdonald [facility] - Discharge Plan Other 05/17: Pt resides with mother, possible placement to sober living rehab for substance abuse - Documentation Teaching Recipient: Patient
[2018-05-18] MEDS: predniSONE 5 MG Tablet PO SCH ×2 (08:39→20:41)
[2018-05-18] MEDS: QUEtiapine 25 MG Tablet PO SCH ×2 (08:39→20:41)
[2018-05-18] MEDS: Famotidine 20 MG Tablet PO SCH ×2 (08:39→20:41)
[2018-05-18] MEDS: Acetaminophen 325 MG Tablet PO PRN ×2 (08:40→20:41)
[2018-05-18] MEDS: Lidocaine 5% Patch T-DERMAL SCH (08:40)
--- NOTE | 2018-05-18 16:30 | P.PNPSY ---
Subjective Remarks: Patient seen for follow-up, chart reviewed. Discussion with nursing staff reported that patient waiting physical therapy to see patient, denying suicide ideations today. Patient was found lying hospital bed noted B, cooperative. Patient states that he continues to have moderate back discomfort but that back brace as well as muscle relaxants have been helpful. Patient states he is trying to move around on the unit, reports feeling less depressed that his mood has been better. Patient denies any suicide ideations today. Denies any visual or auditory hallucinations. Patient continues to want to attend rehabilitation program or sober living facility. Review of Systems All other systems reviewed negative except as stated in HPI Mental Status Examination Appearance: Appropriate Consciousness: Alert Orientation: Person, Place, Date/Time Motor Activity: Normal gait Speech: Unremarkable Language: Adequate Fund of Knowledge: Inadequate Attention and Concentration: Adequate Memory: Unremarkable Mood: Other ("Better") Affect: Appropriate Thought Process & Associations: Intact Thought Content: Appropriate Hallucination Type: None Delusion Type: None Suicidal Ideation: No Suicidal Plan: No Suicidal Intention: No Homicidal Ideation: No Homicidal Plan: No Homicidal Intention: No Insight: Fair Judgment: Impulsive Assessment and Plan - Assessment (1) Adjustment disorder with depressed mood Code(s): F43.21 - Adjustment disorder with depressed mood Status: Acute (2) Polysubstance abuse Code(s): F19.10 - Other psychoactive substance abuse, uncomplicated Status: Acute - Plan Plan: Patient with improved mood feeling less depressed and denying any suicide ideations today. We will continue current treatment. Continue recommendations as per medical team. Continue to monitor mood and behavior. Discharge planning in progress. Justification for Continued Inpatient Stay: At risk of further decompensation at lower level care.
--- NOTE | 2018-05-18 16:54 | P.PN ---
Subjective Interval history: Follow-up on patient with multiple compression fractures, rheumatoid arthritis on chronic prednisone, rhabdomyolysis. Patient seen and examined. Patient states he is sore all over but that he feels a little better. He does not know if he has low vitamin D. He denies any fever or chills. Denies any chest pain or shortness of breath. Denies any nausea, vomiting or abdominal pain. Physical Exam Vital signs: Vital Signs 05/17/18 17:51 05/18/18 05:39 Temperature 98.4 F 98.4 F Pulse Rate 94 H 75 Respiratory Rate 17 18 Blood Pressure 122/75 113/66 Pulse Oximetry 96 96 Narrative: GENERAL: Well-developed well-nourished middle-aged male in no acute distress. Awake and alert. SKIN: Warm and dry. HEAD: Atraumatic. Normocephalic. EYES: Pupils equal and round. No scleral icterus. No injection or drainage. ENT: No nasal bleeding or discharge. Mucous membranes pink and moist. NECK: Trachea midline. CARDIOVASCULAR: Regular rate and rhythm. RESPIRATORY: No accessory muscle use. Clear to auscultation. Breath sounds equal bilaterally. GASTROINTESTINAL: Abdomen soft, nontender, nondistended. +BS. MUSCULOSKELETAL: Extremities without clubbing, cyanosis, or edema. No obvious deformities. NEUROLOGICAL: Awake and alert. No obvious cranial nerve deficits. Motor grossly within normal limits. Able to move all extremities spontaneously. Nonfocal. Normal speech. PSYCHIATRIC: Appropriate mood and affect; Calm and cooperative. Results - Labs CBC & Chem 7: 05/14/18 07:35 05/14/18 07:35 Assessment and Plan - Plan 52-year-old male with a history of rheumatoid arthritis on chronic prednisone, recent admission for rhabdomyolysis, presenting with SIRS, cocaine positivity, suicidal ideation, back pain. Patient was found to have multilevel spinal compression fractures likely secondary to chronic prednisone use. Patient was also treated for rhabdomyolysis which improved. Neurosurgery was consulted and TLSO brace was placed. [facility] consulted for medical management Depression Suicidal ideation. -Management per psychiatric team Bilateral lower extremity weakness Multilevel compression fractures with multilevel spinal stenosis thoracic radiculopathy causing abdominal pain -Continue with TLSO brace. -continue Lidocaine patch and Flexeril 5 mg po q 8 PRN -continue with physical therapy for mobility and to assist with TLSO brace. -obtain Recent rhabdomyolysis-resolved -labs reviewed, CPK back to normal. CT abdomen with some incidental findings including kidney stone, bladder diverticulum Tiny calcified granuloma in the left upper lobes seen on previous CT chest. -Patient will need to follow with primary care as outpatient for this. Rheumatoid arthritis. Chronic prednisone use. Suspected adrenal insufficiency/steroid induced osteoporosis -Decrease prednisone 7.5 twice a day, continue to taper off slowly. -Will need to follow-up with rheumatology as outpatient for treatment of rheumatoid arthritis. -start on Vitamin D 2000units daily. Obtain Vitamin D level. Cocaine abuse. -Cessation counseling provided again. E-cigarette abuse. -Cessation counseling provided again. 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 -Continue Eliquis Code Status: FULL Discussed Condition With: patient, nursing staff
[2018-05-18] MEDS: QUEtiapine 100 MG Tablet PO SCH (20:41)
[2018-05-19 05:58] VITALS: BP 99/63; PULSE 90; RESP 16; TEMP 97.7
[2018-05-19] MEDS: QUEtiapine 25 MG Tablet PO SCH (08:39)
[2018-05-19] MEDS: Acetaminophen 325 MG Tablet PO PRN (08:39)
[2018-05-19] MEDS: Famotidine 20 MG Tablet PO SCH (08:39)
[2018-05-19] MEDS: predniSONE 5 MG Tablet PO SCH (08:40)
[2018-05-19] MEDS: Lidocaine 5% Patch T-DERMAL SCH (08:40)
--- NOTE | 2018-05-19 11:24 | P.PN ---
Subjective Interval history: Follow-up on patient with multiple compression fractures, rheumatoid arthritis on chronic prednisone, rhabdomyolysis. Patient seen and examined. Patient states the Flexeril is making him feel very "woozy" and unsteady on his feet. He would like to stop taking it. He denies any headache or vision changes. He denies any chest pain or shortness of breath. Physical Exam Vital signs: Vital Signs 05/18/18 17:32 05/19/18 05:57 Temperature 98.2 F 97.7 F Pulse Rate 103 H 90 Respiratory Rate 19 16 Blood Pressure 102/64 99/63 L Pulse Oximetry 96 96 Narrative: GENERAL: Well-developed well-nourished middle-aged male in no acute distress. Awake and alert. Lying in bed. SKIN: Warm and dry. HEENT: Atraumatic. Normocephalic. Pupils equal and round. No scleral icterus. No injection or drainage. No nasal bleeding or discharge. Mucous membranes pink and moist. NECK: Trachea midline. CARDIOVASCULAR: Regular rate and rhythm. RESPIRATORY: No accessory muscle use. Clear to auscultation. Breath sounds equal bilaterally. GASTROINTESTINAL: Abdomen soft, nontender, nondistended. +BS. MUSCULOSKELETAL: Extremities without clubbing, cyanosis, or edema. No obvious deformities. NEUROLOGICAL: Awake and alert. No obvious cranial nerve deficits. Motor grossly within normal limits. Able to move all extremities spontaneously. Nonfocal. Normal speech. PSYCHIATRIC: Appropriate mood and affect; Calm and cooperative. Results - Labs CBC & Chem 7: 05/14/18 07:35 05/14/18 07:35 Assessment and Plan - Plan 52-year-old male with a history of rheumatoid arthritis on chronic prednisone, recent admission for rhabdomyolysis, presenting with SIRS, cocaine positivity, suicidal ideation, back pain. Patient was found to have multilevel spinal compression fractures likely secondary to chronic prednisone use. Patient was also treated for rhabdomyolysis which improved. Neurosurgery was consulted and TLSO brace was placed. [facility] consulted for medical management Depression Suicidal ideation. -Management per psychiatric team Bilateral lower extremity weakness Multilevel compression fractures with multilevel spinal stenosis thoracic radiculopathy causing abdominal pain c/o "woozy" feeling on Flexeril -Continue with TLSO brace. -continue Lidocaine patch -discontinue Flexeril 5 mg po q 8 PRN -tramadol 50mg po q8h prn pain -continue with physical therapy for mobility and to assist with TLSO brace. Hypotension, suspect contributing to patients unsteadiness with standing, ? related to Seroquel dose BP 99/63 -check orthostatic BP measurements -discussed with Dr. Donsi possibly lowering dose of Seroquel -fall precautions -monitor BP Recent rhabdomyolysis-resolved -labs reviewed, CPK back to normal. CT abdomen with some incidental findings including kidney stone, bladder diverticulum Tiny calcified granuloma in the left upper lobes seen on previous CT chest. -Patient will need to follow with primary care as outpatient for this. Rheumatoid arthritis. Chronic prednisone use. Suspected adrenal insufficiency/steroid induced osteoporosis -Decrease prednisone 7.5 twice a day, continue to taper off slowly. -Will need to follow-up with rheumatology as outpatient for treatment of rheumatoid arthritis. -start on Vitamin D 2000units daily. Obtain Vitamin D level/pending. Cocaine abuse. -Cessation counseling provided again. E-cigarette abuse. -Cessation counseling provided again. 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 -Continue Eliquis DVT prophylaxis -patient is on Eliquis Code Status: Full Discussed Condition With: patient, nursing staff, Dr. Donis
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
== END 2018-05-19 15:35 | disposition home or self-care (01) ==
LOC: H4EA 16:49 → H260 05-15 15:02
PROVIDERS: ADMIT Student in an Organized Health Care Education/Training Program; ATTEND Student in an Organized Health Care Education/Training Program

== ENCOUNTER 2018-06-12 15:05 | Inpatient (IN) ==
[2018-06-12] MEDS ORDERED: Haloperidol Inj 5 MG/ML Ampul IV.PUSH PRN (15:59)
[2018-06-12] MEDS ORDERED: LORazepam 1 MG Tablet PO PRN (15:59)
--- NOTE | 2018-06-12 16:05 | ED ---
HPI General Chief Complaint: Alcohol Stated Complaint: vicky brandon Time Seen by Provider: 06/12/18 15:31 Source: patient Mode of arrival: ambulatory Limitations: no limitations History of Present Illness HPI Narrative: 52-year-old male with PMH of bipolar, adjustment disorder, polysubstance abuse, multiple compression fractures of the spine, left lower extremity DVT presents the ED for psychiatric evaluation. Patient endorses suicidal ideation and "many plans" to end his life. He denies auditory or visual hallucinations. He complains of chronic numbness in the left foot, abdominal bloating. He complains of frequent urination. He denies fever, chills, chest pain, shortness of breath, abdominal pain. He states that he has been using crack cocaine and alcohol over the last few days. He denies history of alcohol withdrawal seizure. He last drank around 4:00 today. He states he last used cocaine sometime this morning. He is a current smoker. He is homeless. Related Data Previous Rx's Medication Instructions Recorded apixaban [Eliquis] 2.5 mg PO DAILY 30 Days #30 tab 05/19/18 cholecalciferol (vitamin D3) 2,000 unit PO DAILY 30 Days #60 tab 05/19/18 [Vitamin D3] famotidine 20 mg PO BID 30 Days #60 tab 05/19/18 prednisone 7.5 mg PO BID 30 Days #90 tab 05/19/18 quetiapine 100 mg PO HS 30 Days #30 tab 05/19/18 quetiapine [Seroquel] 50 mg PO BID 30 Days #60 tab 05/19/18 thiamine HCl (vitamin B1) 100 mg PO BID 30 Days #60 tab 05/19/18 Allergies Allergy/AdvReac Type Severity Reaction Status Date / Time shellfish derived Allergy Intermediate Swelling Verified 06/13/18 04:07 Review of Systems ROS: all other systems reviewed are negative [facility] Medical History Medical History Alcohol abuse (Acute) Cocaine abuse (Acute) DVT (deep venous thrombosis) (Acute) Depression (Acute) Heroin abuse (Acute) Pulmonary embolism (Acute) Septic shock (Acute) Surgical History Surgical History H/O knee surgery (Acute) History of appendectomy (Acute) History of tonsillectomy (Acute) Family History Family History Other Family history non-contributory Social History Social History Substance History: Active Abuse Second Hand Smoke Exposure: Yes Smoking Status: Current every day smoker Tobacco Type: Cigarettes How Often Do You Have a Drink Containing Alcohol: 4 or more times a week Recent Travel in [facility] within the Last 8 Weeks: No Recent Out of Country Travel within the Last 8 Weeks: No Substance Abuse Detail Crack/Cocaine: Substance Use Status: Active Route Used Substance Abuse: By Mouth Immunization History Tetanus Immunization: Unsure Exam Narrative Exam Narrative: GENERAL: Well-nourished, well-developed white male no acute distress. SKIN: Focused skin assessment warm/dry. HEAD: Atraumatic. Normocephalic. EYES: Pupils equal and round. No scleral icterus. No injection or drainage. ENT: No nasal bleeding or discharge. Mucous membranes pink and moist. NECK: Trachea midline. No JVD. CARDIOVASCULAR: Regular rate and rhythm. No murmur appreciated. RESPIRATORY: No accessory muscle use. Clear to auscultation. Breath sounds equal bilaterally. GASTROINTESTINAL: Abdomen protuberant, active bowel sounds. Soft, non-tender, nondistended. Hepatic and splenic margins not palpable. MUSCULOSKELETAL: No obvious deformities. No clubbing. No cyanosis. No edema. Walks with a normal gait. NEUROLOGICAL: Awake and alert. No obvious cranial nerve deficits. Motor grossly within normal limits. Normal speech. PSYCHIATRIC: Appropriate mood and affect; insight and judgment normal. Course Reevaluation(s) Reevaluation #1: Assumed care of patient at 1900. Patient was awaiting medical clearance before going to psychiatric observation. Patient had an elevated white count but was negative for a source or suggestion of infection. Lactic acid was negative. Patient was tachycardic/suggestive of dehydration. She received a liter of normal saline and was resting comfortably in bed heart rate came down. Patient's alcohol level was negative and at time of physical exam patient is not showing signs of DTs. Patient medically cleared at 2240 and is in psychiatric hold Time: 22:40 Initial Documented Vital Signs Temperature 97.2 F L 06/12/18 15:17 Pulse Rate 115 H 06/12/18 15:17 Respiratory Rate 17 11/03/18 15:17 Blood Pressure 163/102 H 06/12/18 15:17 Pulse Oximetry 97 06/12/18 15:17 Last Documented Vital Signs Temperature 97.6 F 06/13/18 01:04 EST Pulse Rate 74 06/13/18 06:07 Respiratory Rate 18 06/13/18 06:07 Blood Pressure 124/41 L 06/13/18 06:07 Pulse Oximetry 95 06/13/18 06:07 Medical Decision Making MDM Narrative Medical Screen Exam Complete: Yes Emergency Medical Condition: Yes Differential Diagnosis Differential Diagnosis: Adjustment disorder versus anxiety versus bipolar versus depression versus dementia versus malingering versus PTSD versus substance induced mood disorder versus other Lab Data Lab results reviewed: Yes I reviewed the patient's lab results. Result diagrams: 06/12/18 16:15 06/12/18 16:15 Lab Results 06/12/18 06/12/18 06/12/18 Range/Units 14:15 16:15 16:15 WBC 22.0 H (4.0-11.0) th/mm3 RBC 5.04 (4.50-5.90) mil/mm3 Hgb 14.6 (13.0-17.0) gm/dL Hct 40.3 (39.0-51.0) % MCV 80.0 (80.0-100.0) fL MCH 29.0 (27.0-34.0) pg MCHC 36.2 H (32.0-36.0) % RDW 18.4 H (11.6-17.2) % Plt Count 457 H (150-450) th/mm3 MPV 7.6 (7.0-11.0) fL Prelim Diff (Auto) Slide review pending Neut % (Auto) 92.7 H (16.0-70.0) % Lymph % (Auto) 4.5 L (9.0-44.0) % [place] % (Auto) 2.3 (0.0-8.0) % Eos % (Auto) 0.3 (0.0-4.0) % Baso % (Auto) 0.2 (0.0-2.0) % Neut # (Auto) 20.4 H (1.8-7.7) th/mm3 Lymph # (Auto) 1.0 (1.0-4.8) th/mm3 [place] # (Auto) 0.5 (0.0-0.9) th/mm3 Eos # (Auto) 0.1 (0.0-0.4) th/mm3 Baso # (Auto) 0.0 (0.0-0.2) th/mm3 WBC Differential . Diff Scan Auto diff confirmed Differential Comment . Platelet Estimate High H (Normal) Platelet Morphology Normal (Normal) Sodium 133 L (136-145) meq/L Potassium 4.0 (3.5-5.1) meq/L Chloride 97 L (98-107) meq/L Carbon Dioxide 25.9 (21.0-32.0) meq/L Anion Gap 10 (5-15) meq/L BUN 9 (7-18) mg/dL Creatinine 0.79 (0.60-1.30) mg/dL Estimated GFR Greater than 89 (>89) mL/min Random Glucose 99 (74-106) mg/dL Lactic Acid (0.4-2.0) mmol/L Calcium 8.3 L (8.5-10.1) mg/dL Magnesium 1.9 (1.5-2.5) mg/dL Total Bilirubin 0.9 (0.2-1.0) mg/dL AST 21 (15-37) U/L ALT 31 (12-78) U/L Alkaline Phosphatase 81 (45-117) U/L Troponin I (0.02-0.05) ng/mL Total Protein 8.0 (6.4-8.2) g/dL Albumin 3.5 (3.4-5.0) g/dL TSH 0.602 (0.358-3.740) uIU/mL Urine Opiates Screen Neg (Neg) Ur Barbiturates Screen Neg (Neg) Ur Amphetamines Screen Neg (Neg) U Benzodiazepines Scrn Neg (Neg) Urine Cocaine Screen Pos H (Neg) U Cannabinoids Screen Neg (Neg) Serum Alcohol Less than 3 (0-5) mg/dL 06/12/18 06/12/18 Range/Units 16:15 18:19 WBC (4.0-11.0) th/mm3 RBC (4.50-5.90) mil/mm3 Hgb (13.0-17.0) gm/dL Hct (39.0-51.0) % MCV (80.0-100.0) fL MCH (27.0-34.0) pg MCHC (32.0-36.0) % RDW (11.6-17.2) % Plt Count (150-450) th/mm3 MPV (7.0-11.0) fL Prelim Diff (Auto) Neut % (Auto) (16.0-70.0) % Lymph % (Auto) (9.0-44.0) % [place] % (Auto) (0.0-8.0) % Eos % (Auto) (0.0-4.0) % Baso % (Auto) (0.0-2.0) % Neut # (Auto) (1.8-7.7) th/mm3 Lymph # (Auto) (1.0-4.8) th/mm3 [place] # (Auto) (0.0-0.9) th/mm3 Eos # (Auto) (0.0-0.4) th/mm3 Baso # (Auto) (0.0-0.2) th/mm3 WBC Differential Diff Scan Differential Comment Platelet Estimate (Normal) Platelet Morphology (Normal) Sodium (136-145) meq/L Potassium (3.5-5.1) meq/L Chloride (98-107) meq/L Carbon Dioxide (21.0-32.0) meq/L Anion Gap (5-15) meq/L BUN (7-18) mg/dL Creatinine (0.60-1.30) mg/dL Estimated GFR (>89) mL/min Random Glucose (74-106) mg/dL Lactic Acid 1.8 (0.4-2.0) mmol/L Calcium (8.5-10.1) mg/dL Magnesium (1.5-2.5) mg/dL Total Bilirubin (0.2-1.0) mg/dL AST (15-37) U/L ALT (12-78) U/L Alkaline Phosphatase (45-117) U/L Troponin I Less than 0.02 L (0.02-0.05) ng/mL Total Protein (6.4-8.2) g/dL Albumin (3.4-5.0) g/dL TSH (0.358-3.740) uIU/mL Urine Opiates Screen (Neg) Ur Barbiturates Screen (Neg) Ur Amphetamines Screen (Neg) U Benzodiazepines Scrn (Neg) Urine Cocaine Screen (Neg) U Cannabinoids Screen (Neg) Serum Alcohol (0-5) mg/dL ECG Data Attestation: I personally reviewed and interpreted this ECG as follows: Interpretation: Rate 98, sinus rhythm. NM interval 138, QRS 84, QTc 400 ms. Left axis deviation. No acute ST changes. Reviewed by Dr. Jay. Discharge Plan Discharge Disposition Patient Disposition: 30 Still Patient Discharge Condition Condition: Stable Discharge Details Diagnosis: Cocaine abuse, Anxiety, Acute dehydration, Hallucinations Physicians Team ED Provider: Elisabeth [facility] ED Midlevel Provider: Renee Stevens Primary Care Provider: Primary Care Renea Zaidi Rxs /Orders / Referrals /Forms Prescriptions: No Action prednisone 5 mg Tablet 7.5 mg PO BID 30 Days Qty: 90 RF: 0 thiamine HCl (vitamin B1) 100 mg Tablet 100 mg PO BID 30 Days Qty: 60 RF: 0 quetiapine 100 mg Tablet 100 mg PO HS 30 Days Qty: 30 RF: 0 famotidine 20 mg Tablet 20 mg PO BID 30 Days Qty: 60 RF: 0 quetiapine [Seroquel] 50 mg Tablet 50 mg PO BID 30 Days Qty: 60 RF: 0 cholecalciferol (vitamin D3) [Vitamin D3] 1,000 unit Tablet 2,000 unit PO DAILY 30 Days Qty: 60 RF: 0 apixaban [Eliquis] 2.5 mg Tablet 2.5 mg PO DAILY 30 Days Qty: 30 RF: 0 Status ED Status: Medically Cleared Addendum entered and electronically signed by NORRIS Marin 06/13/18 07: 38: MDM: 52-year-old male with complaint of suicidal ideation. He has been drinking and smoking crack cocaine today. Tachycardic and hypertensive on presentation. He was administered a liter of normal saline, blood pressure improved. EKG without acute changes. Patient positive for cocaine on the tox screen. He is administered 1 mg Ativan IV, heart rate within normal limits. Troponin pending. The patient is signed out to the oncoming provider.
[2018-06-12 16:40] LABS: Baso % (Auto) 0.2 % (0.0-2.0); Eos # (Auto) 0.1 th/mm3 (0.0-0.4); Eos % (Auto) 0.3 % (0.0-4.0); Hematocrit 40.3 % (39.0-51.0); Hemoglobin 14.6 gm/dL (13.0-17.0); Lymph % (Auto) 4.5 % (9.0-44.0); Mean Platelet Volume 7.6 fL (7.0-11.0); Mono # (Auto) 0.5 th/mm3 (0.0-0.9); Mono % (Auto) 2.3 % (0.0-8.0); Neut # (Auto) 20.4 th/mm3 (1.8-7.7); Neut % (Auto) 92.7 % (16.0-70.0); Platelet Count 457 th/mm3 (150-450); Red Blood Count 5.04 mil/mm3 (4.50-5.90); Red Cell Distribution Width 18.4 % (11.6-17.2)
[2018-06-12 16:45] LABS: Mean Corpuscular HGB Conc 36.2 % (32.0-36.0)
[2018-06-12 16:47] LABS: Amphetamine Screen,Urine Neg (Neg); Barbiturate Screen,Urine Neg (Neg); Cannabinoid Screen,Urine Neg (Neg); Cocaine Screen,Urine Pos (Neg)
[2018-06-12 16:56] LABS: Opiate Screen,Urine Neg (Neg)
[2018-06-12] MEDS ORDERED: Sod Chloride 0.9% Inj 1,000 ML IV.SIG ONE (16:56)
[2018-06-12 17:04] LABS: Alanine Aminotransferase 31 U/L (12-78); Albumin 3.5 g/dL (3.4-5.0); Anion Gap 10 meq/L (5-15); Aspartate Aminotransferase 21 U/L (15-37); Blood Urea Nitrogen 9 mg/dL (7-18); Calcium 8.3 mg/dL (8.5-10.1); Carbon Dioxide 25.9 meq/L (21.0-32.0); Chloride 97 meq/L (98-107); Glomerular Filtration Rate Greater Than 89 mL/min (>89); Glucose,Random 99 mg/dL (74-106); Magnesium 1.9 mg/dL (1.5-2.5); Sodium 133 meq/L (136-145)
[2018-06-12 17:10] LABS: Alkaline Phosphatase 81 U/L (45-117); Thyroid Stimulating Hormone 0.602 uIU/mL (0.358-3.740)
[2018-06-12 17:18] LABS: Platelet Morphology Normal (Normal)
[2018-06-13] MEDS ORDERED: Haloperidol Inj 5 MG/ML Ampul IV.PUSH PRN (09:35)
[2018-06-13] MEDS ORDERED: Aluminum/Magnesium/Simethacone Susp 30 ML UDC PO PRN (09:35)
[2018-06-13] MEDS ORDERED: Bisacodyl 10 MG Supp RECTAL PRN (09:35)
--- NOTE | 2018-06-13 09:59 | P.HPPSY ---
Provisional Diagnosis Admission Date: June 12, 2018 15:05 [place] I.: Bipolar depression, polysubstance dependence including alcohol, cocaine, heroine , adjustment disorder with depressed mood [place] II.: Unspecified personality disorder Competence Certification of Person's Competence To Provide Express and Informed Consent I have personally examined Steve Desai IV, a person being served at [facility] on, June 13, 2018 0948. Express and informed consent means consent voluntarily given in writing, by a competent person, after sufficient explanation and disclosure of the subject matter involved to enable the person to make a knowing and willful decision without any element of force, fraud, deceit, duress, or other form of constraint or coercion. This person is 18 years of age or older, is not now known to be incompetent to consent to treatment with a guardian advocate, and does not have a health care surrogate or proxy currently making medical treatment decisions. I have found this person to be one of the following: [x] Competent to provide express and informed consent, as defined above, for voluntary admission to this facility and is competent to provide express and informed consent for treatment. He/she has the consistent capacity to make well reasoned, willful, and knowing decisions concerning his or her medical or mental health treatment. The person fully and consistently understands the purpose of the admission for examination/placement and is fully capable of personally exercising all rights assured [place] Incompetent to provide express and informed consent to voluntary admission, and this is incompetent to provide express and informed consent to treatment. The person must be transferred to involuntary status and a petition for a guardian advocate filed with the Circuit Court. [] Refusing to provide express and informed consent to voluntary admission but is competent to provide express and informed consent for treatment. The person must be discharged or transferred to involuntary status. Form shall be completed within 24 hours of a person's arrival at the receiving facility and filed in the clinical record of each person: 1. Admitted on a voluntary basis 2. Permitted to provide express and informed consent to his/her own treatment 3. Allowed to transfer from involuntary to voluntary status 4. Prior to permitting a person to consent to his or her own treatment after having been previously found incompetent to consent to treatment. History of Present Illness Capacity: Has capacity History of Present Illness: The patient a 52 year-old man, domiciled in a sober house, , but , unemployed, supported by [facility], with a psychiatric history of bipolar disorder, adjustment disorder with depressed mood, polysubstance dependence including heroin, cocaine, alcohol, multiple psychiatric hospitalizations, suicide attempts, last hospitalization here in [place] last month, documentation review, the patient is opposed to being Abilify 10 mg, hydroxyzine 25 mg twice daily, medical history multiple compression fractures of the spine, left lower extremity DVT presents the ED for psychiatric evaluation. Patient endorses suicidal ideation and "many plans to do it" to end his life. On the psychiatric evaluation the patient is calm, cooperative, objectively sad, tearful, stating that he was doing fine in the last month, taking his medications, been compliant and sober, but in the last 3 days he has relapsed to cocaine and alcohol. Patient reports that he feels very guilty, depressed, with increased sense of hopelessness, helplessness, worthlessness, and persistent suicidal ideation with multiple plans. The patient says that he feels like a failure, unable to accomplish anything, and he feels that his medical problems are decompensating while he does not even have any family or social support. Patient denies homicidal ideation; he denies visual and auditory hallucinations at the moment. Patient is fully oriented x3, no attention deficit, no fluctuation of consciousness. PPHx: a psychiatric history of bipolar disorder, adjustment disorder with depressed mood, polysubstance dependence including heroin, cocaine, alcohol, multiple psychiatric hospitalizations, suicide attempts, last hospitalization here in [place] last month, documentation review, the patient is opposed to being Abilify 10 mg, hydroxyzine 25 mg twice daily, PMHx: medical history multiple compression fractures of the spine, left lower extremity DVT Substance Hx: Patient has been sober for a month, has recently relapsed and cocaine and alcohol, he has history of heroine abuse Family Hx: Mother has bipolar disorder Social Hx: The patient was born and raised in [place], he lives in a sober living house, [address], , but , unemployed on [facility] Review of Systems All other systems reviewed negative except as stated in HPI Psychiatric: Reports depression, Reports difficulty concentrating, Reports hopelessness, Reports irritability, Reports thoughts of hurting/killing yourself PMFSH - History History Provided By: Patient - Medical History Medical History: Medical History (Last Reviewed 06/12/18 @ 17:04 by NORRIS Marin) Alcohol abuse Cocaine abuse DVT (deep venous thrombosis) Depression Heroin abuse Pulmonary embolism Septic shock - Surgical History Surgical History: Surgical History (Last Reviewed 06/12/18 @ 17:04 by NORRIS Marin) H/O knee surgery History of appendectomy History of tonsillectomy - Family History Family History: Family History (Last Reviewed 06/12/18 @ 17:04 by NORRIS Marin) Other Family history non-contributory - Tobacco History Second Hand Smoke Exposure: Yes Tobacco Use In Past 30 Days: Yes Smoking Status: Current every day smoker Tobacco Type: Cigarettes - Alcohol History How Often Do You Have a Drink Containing Alcohol: 4 or more times a week - Substance Use History Substance History: Active Abuse - Substance Use Type Crack/Cocaine Status: Active Route Used: By Mouth Reason for Use: Get High Opiates Status: Active Route Used: Inhalation Reason for Use: Calm Down, Feels Good, Get High Alcohol Status: Active Route Used: By Mouth Reason for Use: Calm Down, Feels Good, Get High - Travel History Recent Travel in the USA Within the Last 8 Weeks: No Recent Travel Out of the Country Within the Last 8 Weeks: No - Immunization History Tetanus Immunization: Unsure Medications and Allergies Active Medications: Active Medications Al Hydrox/Mg Hydrox/Simethicone (Mag-Al Plus Susp Liq) 30 ml PO Q6H PRN PRN Reason: DYSPEPSIA Al Hydroxide/Mg Hydroxide (Milk Of Magnesia Liq) 30 ml PO Q12H PRN PRN Reason: Mild Constipation Aripiprazole (Abilify) 5 mg PO DAILY EUGENIA Bisacodyl (Dulcolax Supp) 10 mg RECTAL DAILY PRN PRN Reason: SEVERE CONSITIPATION Flumazenil (Romazecon Inj) 0.2 mg IV.PUSH Q1M PRN PRN Reason: OVERSEDATION Haloperidol Lactate (Haldol Inj) 1 mg IV.PUSH Q15M PRN PRN Reason: for severe agitation Haloperidol Lactate (Haldol Inj) 1 mg IV.PUSH Q15M PRN PRN Reason: for severe agitation Lactulose (Lactulose Liq) 30 ml PO DAILY PRN PRN Reason: SEVERE CONSITIPATION Lorazepam (Ativan Inj) 1 mg IV.PUSH Q4H PRN PRN Reason: for CIWA 8-10 Lorazepam (Ativan Inj) 2 mg IV.PUSH Q15M PRN PRN Reason: for CIWA > 20 Lorazepam (Ativan Inj) 2 mg IV.PUSH Q1H PRN PRN Reason: for CIWA 15-20 Lorazepam (Ativan Inj) 2 mg IV.PUSH Q2H PRN PRN Reason: for CIWA 11-14 Lorazepam (Ativan) 1 mg PO Q4H PRN PRN Reason: for CIWA 8-10 Lorazepam (Ativan) 2 mg PO Q2H PRN PRN Reason: for CIWA 11-14 Lorazepam (Ativan) 1 mg PO Q4H PRN PRN Reason: for CIWA 8-10 Lorazepam (Ativan Inj) 2 mg IV.PUSH Q2H PRN PRN Reason: for CIWA 11-14 Lorazepam (Ativan Inj) 2 mg IV.PUSH Q1H PRN PRN Reason: for CIWA 15-20 Lorazepam (Ativan Inj) 2 mg IV.PUSH Q15M PRN PRN Reason: for CIWA > 20 Lorazepam (Ativan Inj) 1 mg IV.PUSH Q4H PRN PRN Reason: for CIWA 8-10 Lorazepam (Ativan) 2 mg PO Q2H PRN PRN Reason: for CIWA 11-14 Senna/Docusate Sodium (Tammy-Colace) 1 tab PO BID EUGENIA Sennosides (Senokot) 17.2 mg PO Q12H PRN PRN Reason: Moderate Constipation Allergies Allergy/AdvReac Type Severity Reaction Status Date / Time shellfish derived Allergy Intermediate Swelling Verified 06/13/18 04:07 Results - Labs CBC & Chem 7: 06/12/18 16:15 06/12/18 16:15 Labs: Laboratory Results - last 24 hr 06/12/18 06/12/18 06/12/18 14:15 16:15 16:15 WBC 22.0 H RBC 5.04 Hgb 14.6 Hct 40.3 MCV 80.0 MCH 29.0 MCHC 36.2 H RDW 18.4 H Plt Count 457 H MPV 7.6 Prelim Diff (Auto) Slide review pending Neut % (Auto) 92.7 H Lymph % (Auto) 4.5 L Kerr % (Auto) 2.3 Eos % (Auto) 0.3 Baso % (Auto) 0.2 Neut # (Auto) 20.4 H Lymph # (Auto) 1.0 Kerr # (Auto) 0.5 Eos # (Auto) 0.1 Baso # (Auto) 0.0 WBC Differential . Diff Scan Auto diff confirmed Differential Comment . Platelet Estimate High H Platelet Morphology Normal Sodium 133 L Potassium 4.0 Chloride 97 L Carbon Dioxide 25.9 Anion Gap 10 BUN 9 Creatinine 0.79 Estimated GFR Greater than 89 Random Glucose 99 Lactic Acid Calcium 8.3 L Magnesium 1.9 Total Bilirubin 0.9 AST 21 ALT 31 Alkaline Phosphatase 81 Troponin I Total Protein 8.0 Albumin 3.5 TSH 0.602 Urine Opiates Screen Neg Ur Barbiturates Screen Neg Ur Amphetamines Screen Neg U Benzodiazepines Scrn Neg Urine Cocaine Screen Pos H U Cannabinoids Screen Neg Serum Alcohol Less than 3 06/12/18 06/12/18 16:15 18:19 WBC RBC Hgb Hct MCV MCH MCHC RDW Plt Count MPV Prelim Diff (Auto) Neut % (Auto) Lymph % (Auto) Kerr % (Auto) Eos % (Auto) Baso % (Auto) Neut # (Auto) Lymph # (Auto) Kerr # (Auto) Eos # (Auto) Baso # (Auto) WBC Differential Diff Scan Differential Comment Platelet Estimate Platelet Morphology Sodium Potassium Chloride Carbon Dioxide Anion Gap BUN Creatinine Estimated GFR Random Glucose Lactic Acid 1.8 Calcium Magnesium Total Bilirubin AST ALT Alkaline Phosphatase Troponin I Less than 0.02 L Total Protein Albumin TSH Urine Opiates Screen Ur Barbiturates Screen Ur Amphetamines Screen U Benzodiazepines Scrn Urine Cocaine Screen U Cannabinoids Screen Serum Alcohol Exam Vital signs: Vital Signs 06/12/18 15:17 06/12/18 18:44 06/12/18 22:24 Temperature 97.2 F L 97.5 F L Pulse Rate 115 H 87 94 H Respiratory Rate 17 16 18 Blood Pressure 163/102 H 142/87 H 100/53 L Pulse Oximetry 97 97 94 L 06/13/18 01:04 EST 06/13/18 06:07 Temperature 97.6 F Pulse Rate 83 74 Respiratory Rate 18 Blood Pressure 100/59 L 124/41 L Pulse Oximetry 94 L 95 Intake & Output 06/12/18 06/13/18 06/13/18 19:59 06:59 18:59 Intake Total Balance Weight Intake: IV NS Inj 1,000 ML @ Wide Open IV. SIG BOLUS ONE Rx#:[id number] Narrative: No tremors, no EPS, some level of psychomotor retardation, but no catatonia, no gait disturbance - Constitutional mild distress - Routine HEENT Exam Head: Present: normocephalic, atraumatic Eye: Present: EOMI, PERRL ENT: Present: mucous membranes moist Mental Status Examination Appearance: Appropriate Consciousness: Alert Orientation: x4 Motor Activity: Normal gait Speech: Unremarkable Language: Adequate Fund of Knowledge: Adequate Attention and Concentration: Adequate Memory: Unremarkable Mood: Sad Affect: Labile Thought Process & Associations: Intact Thought Content: Appropriate Hallucination Type: None Delusion Type: None Suicidal Ideation: Yes Suicidal Plan: Yes Suicidal Intention: No Homicidal Ideation: No Homicidal Plan: No Homicidal Intention: No Insight: Poor Judgment: Poor Assessment and Plan - Assessment (1) Bipolar depression Code(s): F31.30 - Bipolar disorder, current episode depressed, mild or moderate severity, unspecified Status: Acute - Plan Plan: On psychiatric evaluation today I find a patient that looks objectively depressed, tearful, reporting sadness, sense of guiltiness, anhedonia, hopelessness, helplessness, worthlessness in the context of decompensating medical conditions, recent relapse in multiple drugs after a month of sobriety, becoming homeless, the patient has suicidal ideation and multiple plans. There is a patient with history of bipolar disorder, multiple psychiatric admissions, multiple suicidal attempts, polysubstance dependence, poor impulse control, who at this moment has an increased risk of danger to self. Patient will be admitted in psychiatry for stabilization and safety. Patient will be admitted voluntarily in 2600 unit. He was able to contract for safety. A mood disorder decompensation versus substance-induced depression versus malingering with secondary gain of use in the hospital as a halfway are the main diagnosis to rule out in this case, but also an underlying personality pathology in the cluster B spectrum as a source of present symptoms. We will start Abilify 5 mg daily, hydroxyzine 25 mg twice daily. We will start his medical medications. Medical consult for multiple medical conditions and elevated WBCs. Justification for Continued Inpatient Stay: For admission.
[2018-06-13] MEDS: ARIPiprazole 5 MG Tablet PO SCH (13:20)
--- NOTE | 2018-06-13 15:34 | P.CON ---
History of Present Illness Service: [facility] Consult date: 06/13/18 Requesting Physician: Moshe Allen Reason for Consult: Elevated WBC's, abdominal pain Primary Care Provider: No Primary Care Physician Chief Complaint: "I wanted to lay on the railroad tracks" History of Present Illness: Mr. Desai is a 52-year-old male with past medical history significant for bipolar disorder, depression, DVT, PE, spinal compression fractures, and rheumatoid arthritis on chronic prednisone who presented to the emergency department on 06/12 on a voluntary basis after patient reported plans of ending his life. Per ED documentation patient had also been drinking and using crack cocaine. [facility] is consulted due to leukocytosis as well as chronic medical problems including abdominal pain complaints. Patient is seen and examined in his room resting comfortably in bed and appears to be in no acute distress. Reports that he has been on prednisone 15 mg twice a day. States that he if he takes less prednisone as his joints will ache and if he takes more prednisone as he will "blow up". Patient states that he did try following up with rheumatology and was started on an injection for RA, however shortly after that developed sepsis and a DVT, he is no on Eliquis. Patient also reports ongoing abdominal cramping which she states has been chronic. He denies any fevers, chills, cough, shortness of breath or chest pain. He does endorse dysuria. He is requesting to be restarted on prednisone 15 mg twice a day as well as baclofen for spasms. Review of Systems All other systems reviewed negative except as stated in HPI PMFSH - History History Provided By: Patient, Medical Record - Medical History Medical History: Medical History (Last Updated 06/13/18 @ 15:20 by Buck Martinez) Bipolar disorder Rheumatoid arthritis Alcohol abuse Cocaine abuse DVT (deep venous thrombosis) Depression Heroin abuse Pulmonary embolism Septic shock - Surgical History Surgical History: Surgical History (Last Reviewed 06/13/18 @ 15:18 by Buck Martinez) H/O knee surgery History of appendectomy History of tonsillectomy - Family History Family History: Family History (Last Reviewed 06/12/18 @ 17:04 by NORRIS Marin) Other Family history non-contributory - Social History I have reviewed the patient's Social History: Yes - Tobacco History Second Hand Smoke Exposure: Yes Tobacco Use In Past 30 Days: Yes Smoking Status: Current every day smoker Tobacco Type: Cigarettes - Alcohol History How Often Do You Have a Drink Containing Alcohol: 4 or more times a week - Substance Use History Substance History: Active Abuse - Substance Use Type Crack/Cocaine Status: Active Route Used: By Mouth Reason for Use: Get High Opiates Status: Active Route Used: Inhalation Reason for Use: Calm Down, Feels Good, Get High Alcohol Status: Active Route Used: By Mouth Reason for Use: Calm Down, Feels Good, Get High - Travel History Recent Travel in the [place] Within the Last 8 Weeks: No Recent Travel Out of the Country Within the Last 8 Weeks: No - Immunization History Tetanus Immunization: Unsure Medications and Allergies Active Medications: Active Medications Al Hydrox/Mg Hydrox/Simethicone (Mag-Al Plus Susp Liq) 30 ml PO Q6H PRN PRN Reason: DYSPEPSIA Al Hydroxide/Mg Hydroxide (Milk Of Magnesia Liq) 30 ml PO Q12H PRN PRN Reason: Mild Constipation Apixaban (Eliquis) 2.5 mg PO BID [facility] Aripiprazole (Abilify) 5 mg PO DAILY [facility] Last Admin: 06/13/18 13:20 Dose: 5 mg Baclofen (Lioresal) 10 mg PO TID PRN PRN Reason: Muscle Spasm Bisacodyl (Dulcolax Supp) 10 mg RECTAL DAILY PRN PRN Reason: SEVERE CONSITIPATION Famotidine (Pepcid) 20 mg PO BID [facility] Flumazenil (Romazecon Inj) 0.2 mg IV.PUSH Q1M PRN PRN Reason: OVERSEDATION Furosemide (Lasix) 20 mg PO DAILY [facility] Haloperidol Lactate (Haldol Inj) 1 mg IV.PUSH Q15M PRN PRN Reason: for severe agitation Ibuprofen (Advil) 400 mg PO Q6H PRN PRN Reason: Pain 6-10 Lactulose (Lactulose Liq) 30 ml PO DAILY PRN PRN Reason: SEVERE CONSITIPATION Lorazepam (Ativan) 1 mg PO Q4H PRN PRN Reason: for CIWA 8-10 Lorazepam (Ativan Inj) 2 mg IV.PUSH Q2H PRN PRN Reason: for CIWA 11-14 Lorazepam (Ativan Inj) 2 mg IV.PUSH Q1H PRN PRN Reason: for CIWA 15-20 Lorazepam (Ativan Inj) 2 mg IV.PUSH Q15M PRN PRN Reason: for CIWA > 20 Lorazepam (Ativan Inj) 1 mg IV.PUSH Q4H PRN PRN Reason: for CIWA 8-10 Lorazepam (Ativan) 2 mg PO Q2H PRN PRN Reason: for CIWA 11-14 Miscellaneous (Pill Splitter) 1 each OTHER UNSCH [facility] Potassium Chloride (Klor-Con 10) 10 meq PO DAILY EUGENIA Prednisone (Deltasone) 15 mg PO BID EUGENIA Senna/Docusate Sodium (Tammy-Colace) 1 tab PO BID EUGENIA Sennosides (Senokot) 17.2 mg PO Q12H PRN PRN Reason: Moderate Constipation Allergies Allergy/AdvReac Type Severity Reaction Status Date / Time shellfish derived Allergy Intermediate Swelling Verified 06/13/18 04:07 Home Medications Medication Instructions Recorded Confirmed Type aripiprazole 10 mg PO HS 06/13/18 06/13/18 History baclofen 10 mg PO TID PRN 06/13/18 06/13/18 History diphenhydramine HCl 50 mg PO HS 06/13/18 06/13/18 History furosemide 20 mg PO DAILY 06/13/18 06/13/18 History hydroxyzine pamoate 25 mg PO TID PRN 06/13/18 06/13/18 History ibuprofen 400 mg PO Q6H PRN 06/13/18 06/13/18 History potassium chloride 10 meq PO DAILY 06/13/18 06/13/18 History prednisone See Label Instructions .ROUTE 06/13/18 06/13/18 History .COMPLEX ranitidine HCl 150 mg PO BID 06/13/18 06/13/18 History Physical Exam Vital signs: Vital Signs 06/12/18 18:44 06/12/18 22:24 06/13/18 01:04 EST Temperature 97.5 F L 97.6 F Pulse Rate 87 94 H 83 Respiratory Rate 16 18 Blood Pressure 142/87 H 100/53 L 100/59 L Pulse Oximetry 97 94 L 94 L 06/13/18 06:07 Temperature Pulse Rate 74 Respiratory Rate 18 Blood Pressure 124/41 L Pulse Oximetry 95 Intake & Output 06/12/18 06/13/18 06/13/18 19:59 06:59 18:59 Intake Total 591 / 591 Output Total 400 / 400 Balance 191 / 191 Weight Intake: IV NS Inj 1,000 ML @ Wide Open IV. SIG BOLUS ONE Rx#:[id number] Oral 59 Output: Urine 400 / 400 Narrative: GENERAL: Well-nourished, well-developed male in no acute distress. SKIN: Warm and dry. Lower abdominal purple striae. HEAD: Atraumatic. Normocephalic. EYES: Pupils equal and round. No scleral icterus. No injection or drainage. ENT: No nasal bleeding or discharge. Mucous membranes pink and moist. NECK: Trachea midline. No JVD. CARDIOVASCULAR: Regular rate and rhythm. RESPIRATORY: No accessory muscle use. Clear to auscultation. Breath sounds equal bilaterally. GASTROINTESTINAL: Abdomen soft, non-tender, nondistended. + Bowel sounds MUSCULOSKELETAL: Extremities without clubbing, cyanosis, or edema. No obvious deformities. NEUROLOGICAL: Awake, alert, oriented x3. No obvious cranial nerve deficits. Motor grossly within normal limits. Five out of 5 muscle strength in the arms and legs. Normal speech. PSYCHIATRIC: Calm and cooperative. Assessment and Plan - Plan Mr. Desai is a 52-year-old male with past medical history significant for bipolar disorder, depression, DVT, PE, spinal compression fractures, and rheumatoid arthritis on chronic prednisone who presented to the emergency department on 06/12 on a voluntary basis after patient reported plans of ending his life. Per ED documentation patient had also been drinking and using crack cocaine. [facility] is consulted due to leukocytosis as well as chronic medical problems including abdominal pain complaints. Suicidal ideation -Treatment plan per psychiatry Poly-Rheumatoid arthritis, chronic -Continue prednisone 50 mg twice daily, attempt weaning off to at least 10 mg daily -We will also continue as needed ibuprofen Spinal compression fractures -Noted on thoracic MRI from May 2018 -Patient evaluated by neurosurgery with recommendations of TLSO brace with ongoing follow-up with neurosurgery. -Patient with no complaints of back discomfort, ongoing chronic abdominal cramping -We will continue baclofen Leukocytosis -Possibly secondary to chronic steroid use -Complaints of dysuria, check UA Polysubstance drug abuse EtOH abuse -Reiterated to patient the importance of cessation -CIWA Hx DVT -Continue Eliquis 2.5 mg, this will be scheduled twice daily as patient does not need any dose adjustments regarding age, creatinine, or weight. DVT prophylaxis-Eliquis Thank you Dr. Donis for this consultation. We will continue to follow along. Discussed Condition With: Patient and RN
[2018-06-13 18:45] LABS: Bilirubin,Urine Negative (Negative); Clarity,Urine Clear (Clear); Color,Urine Yellow (Yellw/Straw); Glucose,Urine (UA) Negative (Negative); Leukocyte Esterase,Urine Negative (Negative); Mucus,Urine Few /lpf (Occasional); Nitrite,Urine Negative (Negative); Specific Gravity,Urine 1.012 (1.002-1.035)
[2018-06-13] MEDS: Ibuprofen 200 MG Tablet PO PRN (20:18)
[2018-06-13] MEDS: LORazepam 1 MG Tablet PO PRN (20:18)
[2018-06-13] MEDS: Senna/Docusate Sodium 8.6/50 MG Tablet PO SCH (20:57)
[2018-06-13] MEDS: Famotidine 20 MG Tablet PO SCH (20:57)
[2018-06-13] MEDS: predniSONE 10 MG Tablet PO SCH (20:57)
--- NOTE | 2018-06-13 23:21 | ECG ---
Date Performed: 06/12/2018 Time Performed: 18:24:34 PTAGE: 52 years EKG: Sinus rhythm MARKED LEFT AXIS DEVIATION LOW QRS VOLTAGE IN PRECORDIAL LEADS PATTERN CONSISTENT WITH PULMONARY DIS EASE ABNORMAL ECG PREVIOUS TRACING : 05/13/2018 10.02 Since the previous tracing, no significant change noted DOCTOR: Francisco Alatorre Interpretating Date/Time 06/13/2018 23:20:56
[2018-06-14] MEDS: Baclofen 10 MG Tablet PO PRN ×2 (06:27→13:43)
[2018-06-14 06:50] LABS: Hematocrit 38.8 % (39.0-51.0); Hemoglobin 12.8 gm/dL (13.0-17.0); Mean Corpuscular Hemoglobin 27.3 pg (27.0-34.0); Mean Corpuscular Volume 82.9 fL (80.0-100.0); Mean Platelet Volume 7.5 fL (7.0-11.0); Platelet Count 363 th/mm3 (150-450); Red Blood Count 4.68 mil/mm3 (4.50-5.90); Red Cell Distribution Width 18.7 % (11.6-17.2); White Blood Count 11.4 th/mm3 (4.0-11.0)
[2018-06-14 07:30] LABS: Anion Gap 8 meq/L (5-15); Blood Urea Nitrogen 12 mg/dL (7-18); Calcium 8.1 mg/dL (8.5-10.1); Carbon Dioxide 24.7 meq/L (21.0-32.0); Chloride 105 meq/L (98-107); Cholesterol 161 mg/dL (120-200); Glomerular Filtration Rate Greater Than 89 mL/min (>89); Glucose,Random 101 mg/dL (74-106); HDL Cholesterol 51.8 mg/dL (40.0-60.0); LDL Cholesterol,Calculated 91 mg/dL (0-99); Potassium 4.2 meq/L (3.5-5.1); Sodium 138 meq/L (136-145); Triglycerides 92 mg/dL (42-150)
[2018-06-14] MEDS: predniSONE 10 MG Tablet PO SCH ×2 (09:06→20:48)
[2018-06-14] MEDS: Furosemide 20 MG Tablet PO SCH (09:07)
[2018-06-14] MEDS: Famotidine 20 MG Tablet PO SCH ×2 (09:09→20:50)
[2018-06-14] MEDS: Senna/Docusate Sodium 8.6/50 MG Tablet PO SCH ×2 (09:11→20:50)
[2018-06-14] MEDS: LORazepam 1 MG Tablet PO PRN (09:14)
[2018-06-14] MEDS: Ibuprofen 200 MG Tablet PO PRN (09:14)
[2018-06-14] MEDS: ARIPiprazole 5 MG Tablet PO SCH (09:17)
--- NOTE | 2018-06-14 12:55 | P.PN ---
Subjective Interval history: Follow-up visit for leukocytosis and RN. Nurse does not report any acute events overnight or this morning. Patient is seen and examined resting in bed in no acute distress. He states he received his Prednisone and is now feeling much better regarding his joint pain. He denies any fevers, chills, N/V/D, cough or SOB. Physical Exam Vital signs: Vital Signs 06/13/18 17:30 06/14/18 05:32 Temperature 98.6 F 97.4 F L Pulse Rate 116 H 87 Respiratory Rate 18 18 Blood Pressure 121/78 109/69 Pulse Oximetry 96 95 Intake & Output 06/13/18 06/14/18 06/14/18 18:59 06:59 18:59 Intake Total 591 / 591 Output Total 400 / 400 Balance 191 / 191 Intake: Oral 591 / 591 Output: Urine 400 / 400 Narrative: GENERAL: Well-nourished, well-developed male in no acute distress. SKIN: Warm and dry. Lower abdominal purple striae. HEAD: Atraumatic. Normocephalic. EYES: Pupils equal and round. No scleral icterus. No injection or drainage. ENT: No nasal bleeding or discharge. Mucous membranes pink and moist. NECK: Trachea midline. CARDIOVASCULAR: Regular rate and rhythm. RESPIRATORY: No accessory muscle use. Clear to auscultation. Breath sounds equal bilaterally. GASTROINTESTINAL: Abdomen soft, non-tender, nondistended. + Bowel sounds MUSCULOSKELETAL: Extremities without clubbing, cyanosis, or edema. No obvious deformities. NEUROLOGICAL: Awake, alert, oriented x3. No obvious cranial nerve deficits. Motor grossly within normal limits. Normal speech. PSYCHIATRIC: Calm and cooperative. Results - Labs CBC & Chem 7: 06/14/18 05:44 06/14/18 05:44 Laboratory Results - last 24 hr 06/13/18 06/14/18 06/14/18 12:15 05:44 05:44 WBC 11.4 H RBC 4.68 Hgb 12.8 L Hct 38.8 L MCV 82.9 MCH 27.3 MCHC 33.0 RDW 18.7 H Plt Count 363 MPV 7.5 Sodium 138 Potassium 4.2 Chloride 105 D Carbon Dioxide 24.7 Anion Gap 8 BUN 12 Creatinine 0.58 L Estimated GFR Greater than 89 Random Glucose 101 Calcium 8.1 L Triglycerides 92 Cholesterol 161 LDL Cholesterol, Calc 91 HDL Cholesterol 51.8 Cholesterol/HDL Ratio 3.10 Urine Color Yellow Urine Clarity Clear Urine pH 6.0 Ur Specific [place] 1.012 Urine Protein Negative Urine Glucose (UA) Negative Urine Ketones Negative Urine Occult Blood Negative Urine Nitrate Negative Urine Bilirubin Negative Urine Urobilinogen Less than 2 Ur Leukocyte Esterase Negative Urine RBC 1 Urine WBC Less than 1 Urine Mucus Few H Micro UA Comment Culture not ind Ur Microscopic Review Not Reportable Urine Culture Comments Culture not ind Assessment and Plan - Plan Mr. Desai is a 52-year-old male with past medical history significant for bipolar disorder, depression, DVT, PE, spinal compression fractures, and rheumatoid arthritis on chronic prednisone who presented to the emergency department on 06/12 on a voluntary basis after patient reported plans of ending his life. Per ED documentation patient had also been drinking and using crack cocaine. [facility] is consulted due to leukocytosis as well as chronic medical problems including abdominal pain complaints. Suicidal ideation -Treatment plan per psychiatry Poly-Rheumatoid arthritis, chronic Chronic Prednisone use -Continue prednisone 15 mg twice daily, ideally would like to wean this to lower dose. (Of note this patient [facility]. Trial of Methotrexate and lower dose of Prednisone, however unsuccessful) -Continue PRN ibuprofen -Hemoglobin A1C pending Spinal compression fractures -Noted on thoracic MRI from May 2018 -Patient evaluated by neurosurgery with recommendations of TLSO brace with ongoing follow-up with neurosurgery. -Patient with no complaints of back discomfort, ongoing chronic abdominal cramping -Continue baclofen, request TLSO brace from [employer]. Leukocytosis w/ no infection source -Possibly secondary to chronic steroid use -UA negative, WBC improved Polysubstance drug abuse EtOH abuse -Reiterated to patient the importance of cessation -CIWA Hx DVT -Continue Eliquis 2.5 mg BID. - Concerns due to cost, request assistance. DVT prophylaxis-Eliquis Discussed Condition With: Patient and RN
[2018-06-14 17:19] LABS: Hemoglobin A1c 5.6 % (4.3-6.0)
[2018-06-14] MEDS ORDERED: Acetaminophen 325 MG Tablet PO PRN (17:36)
--- NOTE | 2018-06-14 17:43 | P.PNPSY ---
Subjective Remarks: Patient initially admitted by Dr. Berman,'s H&P reviewed and agreed with. I have completed the inpatient initial psychiatric admission template orders. Patient seen in his room with nurse Thalia, he did remember me from a prior visit over a month ago. His he was somewhat contradictory story about leaving his sober living facility showing noncompliance with medication and relapse and there is addictions. He states that he can go back to the sober living facility. But he needs his medications. We will continue his medications for now and observe hopeless be fairly short stay and can return to his sober living facility today he is somewhat vague about any suicidal ideation Review of Systems All other systems reviewed negative except as stated in HPI Mental Status Examination Appearance: Appropriate Consciousness: Alert Orientation: x4 Motor Activity: Normal gait Speech: Unremarkable Language: Adequate Fund of Knowledge: Adequate Attention and Concentration: Adequate Memory: Unremarkable Mood: Sad Affect: Labile Thought Process & Associations: Intact Thought Content: Appropriate Hallucination Type: None Delusion Type: None Suicidal Ideation: Yes Suicidal Plan: Yes Suicidal Intention: No Homicidal Ideation: No Homicidal Plan: No Homicidal Intention: No Insight: Poor Judgment: Poor Assessment and Plan - Assessment (1) Bipolar depression Code(s): F31.30 - Bipolar disorder, current episode depressed, mild or moderate severity, unspecified Status: Acute - Plan Plan: Patient remained somewhat depressed and suicidal, though compliant medications. There is a degree of manipulation I feel involved with this Justification for Continued Inpatient Stay: At this time patient would decompensate a place to a lower level of care Discharge Planning: Probable return to the sober living facility Request Healthcare Surrogate/Guardian Advocate?: No
[2018-06-14] MEDS: ARIPiprazole 10 MG Tablet PO SCH (20:48)
--- NOTE | 2018-06-15 07:23 | P.TTN ---
- Patient Problems Problems: 1. Discharge planning 2. Medication compliance 3. Knowledge deficit 4. Lack of coping skills - Progress Toward Goals Provider Present: Dr. López Ellis (Patient is new to Dr. Elils. Dr. Ellis will meet with patient to discuss treatment plan.) Psychiatric Counselors Present: Tiago Johnson Jr., [facility] (Counselor will meet with patient to discuss safe discharge plan.) Group Spec/RT/OT/[place] Present: AFSHAN Tovar (Patient attends select groups.) - Documentation Teaching Recipient: Patient
[2018-06-15] MEDS: ARIPiprazole 5 MG Tablet PO SCH (08:54)
[2018-06-15] MEDS: Famotidine 20 MG Tablet PO SCH ×2 (08:55→20:47)
[2018-06-15] MEDS: Baclofen 10 MG Tablet PO PRN ×2 (08:55→22:29)
[2018-06-15] MEDS: Furosemide 20 MG Tablet PO SCH (08:56)
[2018-06-15] MEDS: Senna/Docusate Sodium 8.6/50 MG Tablet PO SCH (08:56)
[2018-06-15] MEDS: predniSONE 10 MG Tablet PO SCH ×2 (08:56→20:47)
[2018-06-15] MEDS: Ibuprofen 200 MG Tablet PO PRN (09:00)
--- NOTE | 2018-06-15 10:38 | P.PN ---
Subjective Interval history: Follow-up leukocytosis and RA. Patient seen and examined, lying in bed sleeping , awakens to voice. He states he has been doing well. Eating well without any nausea or vomiting. Have intermittent abdominal pain although is not present at this time. Vital signs stable. Afebrile. Continue to attempt to wean steroids. He states he feels much improved on the steroids at this time. Physical Exam Vital signs: Vital Signs 06/14/18 16:00 06/15/18 05:30 Temperature 98.6 F 97.8 F Pulse Rate 88 Respiratory Rate 16 18 Blood Pressure 116/63 102/61 Pulse Oximetry 93 L 97 Intake & Output 06/14/18 06/15/18 06/15/18 18:59 06:59 18:59 Intake Total 360 / 360 Balance 360 / 360 Intake: Oral 360 / 360 Other: Date of Last Bowel Movement 06/14/18 06/14/18 06/14/18 Narrative: GENERAL: Well-nourished, well-developed male in no acute distress. SKIN: Warm and dry. Lower abdominal purple striae. HEAD: Atraumatic. Normocephalic. EYES: Pupils equal and round. No scleral icterus. No injection or drainage. ENT: No nasal bleeding or discharge. Mucous membranes pink and moist. NECK: Trachea midline. CARDIOVASCULAR: Regular rate and rhythm. RESPIRATORY: No accessory muscle use. Clear to auscultation. Breath sounds equal bilaterally. GASTROINTESTINAL: Abdomen soft, non-tender, nondistended. + Bowel sounds MUSCULOSKELETAL: Extremities without clubbing, cyanosis, or edema. No obvious deformities. NEUROLOGICAL: Awake, alert, oriented x3. No obvious cranial nerve deficits. Motor grossly within normal limits. Normal speech. PSYCHIATRIC: Calm and cooperative. Results - Labs CBC & Chem 7: 06/14/18 05:44 06/14/18 05:44 Laboratory Results - last 24 hr 06/14/18 05:44 Hemoglobin A1c 5.6 Assessment and Plan - Plan Mr. Desai is a 52-year-old male with past medical history significant for bipolar disorder, depression, DVT, PE, spinal compression fractures, and rheumatoid arthritis on chronic prednisone who presented to the emergency department on 06/12 on a voluntary basis after patient reported plans of ending his life. Per ED documentation patient had also been drinking and using crack cocaine. [facility] is consulted due to leukocytosis as well as chronic medical problems including abdominal pain complaints. Suicidal ideation -Treatment plan per psychiatry. Poly-Rheumatoid arthritis, chronic Chronic Prednisone use -Continue prednisone 15 mg twice daily, ideally would like to wean this to lower dose. (Should be noted that patient completed a trial of Methotrexate and lower dose of Prednisone in the outpatient clinic and was however unsuccessful). -Continue PRN ibuprofen. -Hemoglobin A1C 5.6. Spinal compression fractures -Noted on thoracic MRI from May 2018. -Patient evaluated by neurosurgery with recommendations of TLSO brace with ongoing follow-up with neurosurgery. -Patient with no complaints of back discomfort, ongoing chronic abdominal cramping. -Continue baclofen, request TLSO brace from [employer].. Leukocytosis w/ no infection source -Possibly secondary to chronic steroid use. -UA negative, WBC improved. -Continue to monitor CBC intermittently. Afebrile. Polysubstance drug abuse EtOH abuse -Reiterated to patient the importance of cessation -Monitor for withdrawals. Hx DVT -Continue Eliquis 2.5 mg BID. -Concerns due to cost, request assistance. DVT prophylaxis-Eliquis Discussed Condition With: Patient and RN.
--- NOTE | 2018-06-15 13:02 | P.PNPSY ---
Subjective Remarks: Patient seen in his room with nurse Thalia, chart reviewed, patient's medication reviewed and multiple medications discontinued. Otherwise patient compliant with medications. Says he slept well last night. He denies suicidality at this time. Denies voices at this time. He states he does have a friend he can stay with him on discharge. He also continues to explore sober living facilities. We will consider discharge tomorrow if patient continues to improve Review of Systems All other systems reviewed negative except as stated in HPI Mental Status Examination Appearance: Appropriate Consciousness: Alert Orientation: x4 Motor Activity: Normal gait Speech: Unremarkable Language: Adequate Fund of Knowledge: Adequate Attention and Concentration: Adequate Memory: Unremarkable Mood: Sad (Improving) Affect: Other (Good range and intensity) Thought Process & Associations: Intact, Logical Thought Content: Appropriate Hallucination Type: None Delusion Type: None Suicidal Ideation: Yes (Denies at this time) Suicidal Plan: Yes (Denies at this time) Suicidal Intention: No Homicidal Ideation: No Homicidal Plan: No Homicidal Intention: No Insight: Fair Judgment: Adequate (Fair) Assessment and Plan - Assessment (1) Bipolar depression Code(s): F31.30 - Bipolar disorder, current episode depressed, mild or moderate severity, unspecified Status: Acute - Plan Plan: Patient improving now denies suicidality and voices is exploring sober living facilities and also the possibility of staying at a friend's home Justification for Continued Inpatient Stay: At this time patient would decompensate a place to a lower level of care Discharge Planning: Possible discharge tomorrow Request Healthcare Surrogate/Guardian Advocate?: No
[2018-06-15 17:08] VITALS: O2SAT 96
[2018-06-15] MEDS: ARIPiprazole 10 MG Tablet PO SCH (20:47)
[2018-06-16 05:59] VITALS: BP 119/69; PULSE 87; RESP 16; TEMP 98
[2018-06-16] MEDS: ARIPiprazole 5 MG Tablet PO SCH (08:20)
[2018-06-16] MEDS: Famotidine 20 MG Tablet PO SCH (08:20)
[2018-06-16] MEDS: predniSONE 10 MG Tablet PO SCH (08:20)
[2018-06-16] MEDS: Furosemide 20 MG Tablet PO SCH (08:20)
[2018-06-16] MEDS: Baclofen 10 MG Tablet PO PRN (09:06)
--- NOTE | 2018-06-16 11:16 | P.PNIM ---
Subjective Interval history: Follow-up leukocytosis and RA. Patient seen and examined, lying in bed sleeping , awakens to voice. He states he has been doing well. Eating well without any nausea or vomiting. Have intermittent abdominal pain although is not present at this time. Vital signs stable. Afebrile. Continue to attempt to wean steroids. He states he feels much improved on the steroids at this time. 11-7 STATES STEROIDS HELP HIS RA NO ABDOMINAL PAIN AT THIS TIME Physical Exam Vital signs: Vital Signs 06/15/18 17:07 06/16/18 05:58 Temperature 97.5 F L 98 F Pulse Rate 102 H 87 Respiratory Rate 17 16 Blood Pressure 137/92 H 119/69 Pulse Oximetry 96 Intake & Output 06/15/18 06/16/18 06/16/18 18:59 06:59 18:59 Intake Total 360 / 360 240 / 240 Balance 360 / 360 240 / 240 Intake: Oral 360 / 360 240 / 240 Other: Date of Last Bowel Movement 06/14/18 Narrative: GENERAL: Well-nourished, well-developed male in no acute distress. SKIN: Warm and dry. Lower abdominal purple striae. HEAD: Atraumatic. Normocephalic. EYES: Pupils equal and round. No scleral icterus. No injection or drainage. ENT: No nasal bleeding or discharge. Mucous membranes pink and moist. NECK: Trachea midline. CARDIOVASCULAR: Regular rate and rhythm. RESPIRATORY: No accessory muscle use. Clear to auscultation. Breath sounds equal bilaterally. GASTROINTESTINAL: Abdomen soft, non-tender, nondistended. + Bowel sounds MUSCULOSKELETAL: Extremities without clubbing, cyanosis, or edema. No obvious deformities. NEUROLOGICAL: Awake, alert, oriented x3. No obvious cranial nerve deficits. Motor grossly within normal limits. Normal speech. PSYCHIATRIC: Calm and cooperative. Results - Labs CBC & Chem 7: 06/14/18 05:44 06/14/18 05:44 Assessment and Plan - Plan Mr. Desai is a 52-year-old male with past medical history significant for bipolar disorder, depression, DVT, PE, spinal compression fractures, and rheumatoid arthritis on chronic prednisone who presented to the emergency department on 06/12 on a voluntary basis after patient reported plans of ending his life. Per ED documentation patient had also been drinking and using crack cocaine. [facility] is consulted due to leukocytosis as well as chronic medical problems including abdominal pain complaints. Suicidal ideation -Treatment plan per psychiatry. Poly-Rheumatoid arthritis, chronic Chronic Prednisone use -Continue prednisone 15 mg twice daily, ideally would like to wean this to lower dose. (Should be noted that patient completed a trial of Methotrexate and lower dose of Prednisone in the outpatient clinic and was however unsuccessful). -Continue PRN ibuprofen. -Hemoglobin A1C 5.6. Spinal compression fractures -Noted on thoracic MRI from May 2018. -Patient evaluated by neurosurgery with recommendations of TLSO brace with ongoing follow-up with neurosurgery. -Patient with no complaints of back discomfort, ongoing chronic abdominal cramping. -Continue baclofen, request TLSO brace from [employer]. Leukocytosis w/ no infection source -Possibly secondary to chronic steroid use. -UA negative, WBC improved. -Continue to monitor CBC intermittently. Afebrile. Polysubstance drug abuse EtOH abuse -Reiterated to patient the importance of cessation -Monitor for withdrawals. Hx DVT -Continue Eliquis 2.5 mg BID. -Concerns due to cost, request CM assistance. DVT prophylaxis-Eliquis Code Status: FULL CODE Discussed Condition With: RN AND PT Discharge Planning: ONCE CLEARED BY PSYCHIATRY
--- NOTE | 2018-06-16 12:58 | P.DSPSY ---
Psychiatry Discharge Summary Inpatient Psychiatric care?: Yes Advance Directives: No Mental Health Advance Directive: No Health Care Proxy: No - Admission Admission Date: June 13, 2018 09:53 - Admission Diagnosis (1) Adjustment disorder with depressed mood Code(s): F43.21 - Adjustment disorder with depressed mood (2) Polysubstance abuse Code(s): F19.10 - Other psychoactive substance abuse, uncomplicated (3) Cocaine abuse Code(s): F14.10 - Cocaine abuse, uncomplicated Brief History: The patient a 52 year-old man, domiciled in a sober house, , but , unemployed, supported by [facility], with a psychiatric history of bipolar disorder, adjustment disorder with depressed mood, polysubstance dependence including heroin, cocaine, alcohol, multiple psychiatric hospitalizations, suicide attempts, last hospitalization here in [place] last month, documentation review, the patient is opposed to being Abilify 10 mg, hydroxyzine 25 mg twice daily, medical history multiple compression fractures of the spine, left lower extremity DVT presents the ED for psychiatric evaluation. Patient endorses suicidal ideation and "many plans to do it" to end his life. On the psychiatric evaluation the patient is calm, cooperative, objectively sad, tearful, stating that he was doing fine in the last month, taking his medications, been compliant and sober, but in the last 3 days he has relapsed to cocaine and alcohol. Patient reports that he feels very guilty, depressed, with increased sense of hopelessness, helplessness, worthlessness, and persistent suicidal ideation with multiple plans. The patient says that he feels like a failure, unable to accomplish anything, and he feels that his medical problems are decompensating while he does not even have any family or social support. Patient denies homicidal ideation; he denies visual and auditory hallucinations at the moment. Patient is fully oriented x3, no attention deficit, no fluctuation of consciousness. PPHx: a psychiatric history of bipolar disorder, adjustment disorder with depressed mood, polysubstance dependence including heroin, cocaine, alcohol, multiple psychiatric hospitalizations, suicide attempts, last hospitalization here in [place] last month, documentation review, the patient is opposed to being Abilify 10 mg, hydroxyzine 25 mg twice daily, PMHx: medical history multiple compression fractures of the spine, left lower extremity DVT Substance Hx: Patient has been sober for a month, has recently relapsed and cocaine and alcohol, he has history of heroine abuse Family Hx: Mother has bipolar disorder Social Hx: The patient was born and raised in [place], he lives in a sober living house, [facility], , but , unemployed on [facility] Tobacco Use In Past 30 Days: Yes How Often Do You Have a Drink Containing Alcohol: Monthly or less Hospital Course: Patient's anxiety with psychotic features and irritability quickly resolved with the milieu and his cooperation with the medication. He is improved to the point where he is talked with the staff at [facility]. They are willing to have him return there today. He denies suicidality homicidality voice or visions realizes need for absolute abstinence. And his need for cooperation with his medication mental health follow-up. Thus patient will be discharged today to [facility]. To follow-up mental health services in the community perhaps through [facility] act - Discharge Discharge Date: 06/16/18 - Discharge Diagnosis (1) Adjustment disorder with depressed mood Diagnosis: Principal Code(s): F43.21 - Adjustment disorder with depressed mood Status: Acute (2) Polysubstance abuse Diagnosis: Secondary Code(s): F19.10 - Other psychoactive substance abuse, uncomplicated Status: Acute (3) Cocaine abuse Diagnosis: Secondary Code(s): F14.10 - Cocaine abuse, uncomplicated Status: Acute Discharge Disposition: [facility] - Discharge Instructions Discharge Diet: Regular Diet Activities You Can Perform: Regular- No Restrictions - Discharge Time > 30 minutes Mental Status Examination Appearance: Appropriate Consciousness: Alert Orientation: x4 Motor Activity: Normal gait Speech: Unremarkable Language: Adequate Fund of Knowledge: Adequate Attention and Concentration: Adequate Memory: Unremarkable Mood: Sad (Improving) Affect: Other (Good range and intensity) Thought Process & Associations: Intact, Logical Thought Content: Appropriate Hallucination Type: None Delusion Type: None Suicidal Ideation: Yes (Denies at this time) Suicidal Plan: Yes (Denies at this time) Suicidal Intention: No Homicidal Ideation: No Homicidal Plan: No Homicidal Intention: No Insight: Fair Judgment: Adequate (Fair) Discharge/Advance Care Plan - Results Vital Signs: Last Vital Signs Temp 98 F 06/16/18 05:58 Pulse 87 06/16/18 05:58 Resp 16 06/16/18 05:58 BP 119/69 06/16/18 05:58 Pulse Ox 96 11/06/18 17:07 Lab Results: Laboratory Results Hemoglobin A1c 5.6 % (4.3-6.0) 06/14/18 05:44 Triglycerides 92 mg/dL (42-150) 06/14/18 05:44 Cholesterol 161 mg/dL (120-200) 06/14/18 05:44 LDL Cholesterol, Calc 91 mg/dL (0-99) 06/14/18 05:44 HDL Cholesterol 51.8 mg/dL (40.0-60.0) 06/14/18 05:44 TSH 0.602 uIU/mL (0.358-3.740) 06/12/18 16:15 Urine Culture Comments Culture not ind 06/13/18 12:15 Summary of Procedures: None done Pending Results: None - Medications Number of antipsychotic medications at discharge: 1 - Discharge Care Plan Goals to Promote Your Health: * To prevent worsening of your condition and complications * To maintain your health at the optimal level Directions to Meet Your Goals: Take your medications as prescribed Follow your dietary instruction Follow activity as directed Keep your appointments as scheduled Take your immunizations and boosters as scheduled If your symptoms worsen call your PCP, if no PCP go to Urgent Care Center or Emergency Room For 02/03 questions related to your inpatient stay or results of tests pending at discharge, please contact Dr. Steve Ellis MD at Smoking is Dangerous to Your Health. Avoid second hand smoking
== END 2018-06-16 17:00 | disposition home or self-care (01) ==
LOC: NEPD 15:05 → NEDA 06-13 09:53 → H260 06-13 11:54
PROVIDERS: ADMIT Psychiatry & Neurology Psychiatry; ATTEND Psychiatry & Neurology Psychiatry

== ENCOUNTER 2018-07-27 11:22 | Inpatient (IN) ==
[2018-07-27] MEDS ORDERED: Aluminum/Magnesium/Simethacone Susp 30 ML UDC PO PRN (16:38)
[2018-07-27] MEDS ORDERED: Bisacodyl 10 MG Supp RECTAL PRN (16:38)
[2018-07-27] MEDS: Baclofen 10 MG Tablet PO PRN (17:13)
[2018-07-27] MEDS: Senna/Docusate Sodium 8.6/50 MG Tablet PO SCH (20:56)
[2018-07-27] MEDS: Famotidine 20 MG Tablet PO SCH (20:57)
[2018-07-28 06:55] LABS: Anion Gap 7 meq/L (5-15); Blood Urea Nitrogen 15 mg/dL (7-18); Calcium 7.4 mg/dL (8.5-10.1); Carbon Dioxide 25.8 meq/L (21.0-32.0); Chloride 106 meq/L (98-107); Cholesterol 182 mg/dL (120-200); Glomerular Filtration Rate Greater Than 89 mL/min (>89); Glucose,Random 77 mg/dL (74-106); Potassium 3.9 meq/L (3.5-5.1); Sodium 139 meq/L (136-145); Triglycerides 180 mg/dL (42-150)
[2018-07-28 06:59] LABS: HDL Cholesterol 49.1 mg/dL (40.0-60.0); LDL Cholesterol,Calculated 97 mg/dL (0-99)
[2018-07-28 07:07] LABS: Albumin 2.6 g/dL (3.4-5.0); Calcium-Albumin Corrected 8.5 mg/dL (8.5-10.1)
[2018-07-28] MEDS: Famotidine 20 MG Tablet PO SCH ×2 (09:00→21:04)
[2018-07-28] MEDS: Senna/Docusate Sodium 8.6/50 MG Tablet PO SCH ×2 (09:00→21:05)
[2018-07-28 11:59] LABS: Hemoglobin A1c 5.7 % (4.3-6.0)
[2018-07-28] MEDS: buPROPion 150 MG 12 HR Tablet PO SCH (14:37)
[2018-07-28] MEDS: predniSONE 5 MG Tablet PO SCH ×2 (14:38→21:04)
[2018-07-28] MEDS: Baclofen 10 MG Tablet PO PRN (14:41)
--- NOTE | 2018-07-28 15:35 | P.HPPSY ---
Provisional Diagnosis Admission Date: July 27, 2018 16:30 [place] I.: Bipolar 1 disorder most recent episode depressed Cocaine use disorder severe Alcohol use disorder mild [place] III.: Rheumatoid arthritis Competence Certification of Person's Competence To Provide Express and Informed Consent I have personally examined Steve Desai IV, a person being served at [facility] on, July 28, 2018 1521. Express and informed consent means consent voluntarily given in writing, by a competent person, after sufficient explanation and disclosure of the subject matter involved to enable the person to make a knowing and willful decision without any element of force, fraud, deceit, duress, or other form of constraint or coercion. This person is 18 years of age or older, is not now known to be incompetent to consent to treatment with a guardian advocate, and does not have a health care surrogate or proxy currently making medical treatment decisions. I have found this person to be one of the following: [xxx] Competent to provide express and informed consent, as defined above, for voluntary admission to this facility and is competent to provide express and informed consent for treatment. He/she has the consistent capacity to make well reasoned, willful, and knowing decisions concerning his or her medical or mental health treatment. The person fully and consistently understands the purpose of the admission for examination/placement and is fully capable of personally exercising all rights assured under [place] [] Incompetent to provide express and informed consent to voluntary admission, and this is incompetent to provide express and informed consent to treatment. The person must be transferred to involuntary status and a petition for a guardian advocate filed with the Circuit Court. [] Refusing to provide express and informed consent to voluntary admission but is competent to provide express and informed consent for treatment. The person must be discharged or transferred to involuntary status. Form shall be completed within 24 hours of a person's arrival at the receiving facility and filed in the clinical record of each person: 1. Admitted on a voluntary basis 2. Permitted to provide express and informed consent to his/her own treatment 3. Allowed to transfer from involuntary to voluntary status 4. Prior to permitting a person to consent to his or her own treatment after having been previously found incompetent to consent to treatment. History of Present Illness Capacity: Has capacity Chief Complaint: depression with suicidal ideations and plan History of Present Illness: The patient is a 52-year-old male with a history of bipolar disorder and substance use disorders who initially presented to a local emergency department complaining of suicidal ideations with a plan to lay down on the railroad tracks. The patient reports stress from recent relapse on alcohol and cocaine and this led to him being "kicked out of the recovery road" and he became acutely hopeless and suicidal. The patient was medically cleared and transferred to the [facility] inpatient psych for further evaluation and treatment. Upon evaluation this morning patient reports "I am still very depressed I am bummed out because I cannot walk due to my arthritis I cannot take care of myself and I cannot work it is all very overwhelming." The patient reports that he does live independently but it is a struggle and his family and evangelical have been helping him pay the rent. He acknowledges being "caught in a vicious cycle of my mood and pain and using drugs to try to make me feel better but it only makes it worse." As for the patient's mood, the patient reports worsening depressed mood over the last couple weeks in association with restless sleep decreased interest and decreased energy, feelings of guilt and hopelessness, and intermittent thoughts of ending his life. As for episodes of karyna, the patient reports last episode of a expansive mood state was approximately 1 year ago. He reports that these mood states have occurred without the use of stimulants and are associated with a decreased need for sleep and increased goal-directed activity and reckless behaviors. As for anxiety, the patient denies any history of recurrent anxiety attacks or excessive worries or reliving of past traumas. As for psychosis, the patient denies any history of auditory or visual hallucinations. He does admit to interpersonal paranoia that is likely likely associated with his stimulant use. Past psychiatric history: Past Diagnoses: Bipolar 1 disorder Hospitalizations: The patient was admitted to [facility] in May 2018 and then in June 2018. Patient presented to the emergency room for admission on 14 July but was referred for detox. He was returned to the unit last night as a transfer from an outside ER. The patient reports that previous to May 2018 his only other psychiatric hospitalizations were in 2010. Suicidal behavior: Patient reports 3 past suicide attempts the last being in May 2018 by an overdose. The patient does not have any history of self- injurious behaviors. Past psychotropic medication trials: The patient has poor recall of past psychotropic medications but he does acknowledge taking Seroquel, Atarax, and most recently Abilify. The patient complains of lack of efficacy of the Abilify to help with his depression. Outpatient MH treatment: Patient is followed by [facility] Substance Use Treatment: Patient was recently discharged from a residential treatment program due to his relapse. Abuse/assault history: Patient denies Family psychiatric history: Patient reports that his mother suffers from a mood disorder and is on gabapentin. He denies any family history of suicides. Psychosocial history: Patient was born and raised in [place] [place] [facility]. He was raised only by his mother and does not know his father. He had no siblings. He graduated high school and went on to get an associates degree in [employer]. 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 He reports that he cannot work now due to his rheumatoid arthritis. Patient reports he has been for 25 years but one year ago. He reports that his and 5 kids live in [place] and that she has already started dating other men. The patient has no history of serving in the and he denies access to firearms. As for legal history, the patient admits to a possession charge 30 years ago but no current legal problems per Substance Use history: Tobacco use: Patient smokes 1 pack/day for approximately 30 years Alcohol use: Patient reports that he last used alcohol on a regular basis 6 months ago. His peak use was 1/5 of vodka a day +12 beers. Patient reports using only sporadically in the last 6 months but he did admit to using on the day prior to admission. Cannabis use: Denies Stimulant use: Patient reports intermittent cocaine and amphetamine use over the last 20 years. He last used cocaine on July 14, 2018. Opiate use: Patient reports only rare use of heroin and last use 1 year ago. Prescription drug abuse: Patient denies - Inpatient Certification I certify that the inpatient services were ordered in accordance with Medicare regulations governing the order. This includes certification that hospital inpatient services are reasonable and necessary and in the case of services not specified as inpatient-only under 42 CFR 419.22(n), that they are appropriately provided as inpatient services in accordance to with the 2-midnight benchmark under 43 CFR 412.3(e) I certify that inpatient psychiatric hospital services are medically necessary. Evaluation and treatment and/or diagnostic testing are expected to improve the patient's condition. The patient needs on a daily basis, active treatment furnished directly by or requiring the supervision of inpatient psychiatric facility personnel. Estimated Total Length of Stay (Days): 5 Plans for Post Hospital Care: Not yet determined Review of Systems Constitutional: Reports body ache(s), Reports lack of energy, Reports malaise Musculoskeletal: Reports back pain, Reports joint swelling, Reports limited joint movement PMFSH - History History Provided By: Patient - Medical History Medical History: Medical History (Last Reviewed 07/15/18 @ 13:10 by KENNETH Short) Alcohol abuse Bipolar disorder Cocaine abuse DVT (deep venous thrombosis) DVT (deep venous thrombosis) Depression Heroin abuse Pulmonary embolism Rheumatoid arthritis Septic shock - Surgical History Surgical History: Surgical History (Last Reviewed 07/15/18 @ 13:10 by KENNETH Short) H/O knee surgery History of appendectomy History of tonsillectomy - Family History Family History: Family History (Last Reviewed 06/12/18 @ 17:04 by NORRIS Marin) Other Family history non-contributory - Tobacco History Second Hand Smoke Exposure: Yes Tobacco Use In Past 30 Days: Yes Smoking Status: Current every day smoker Tobacco Type: Cigarettes - Alcohol History How Often Do You Have a Drink Containing Alcohol: Monthly or less - Substance Use History Substance History: Active Abuse - Substance Use Type Crack/Cocaine Status: Active Route Used: Inhalation Frequency: "Relapsed once this month" Reason for Use: Calm Down Opiates Status: Sustained Remission Route Used: Intravenously Reason for Use: Calm Down Comment: "Pain relief" Alcohol Status: Active Route Used: By Mouth Frequency: "Relapsed once this month" Reason for Use: Calm Down - Travel History Recent Travel in the [place] Within the Last 8 Weeks: No Recent Travel Out of the Country Within the Last 8 Weeks: No - Immunization History Tetanus Immunization: <5 Years Hx Influenza Vaccine This Season: No Medications and Allergies Active Medications: Active Medications Al Hydrox/Mg Hydrox/Simethicone (Mag-Al Plus Susp Liq) 30 ml PO Q6H PRN PRN Reason: DYSPEPSIA Al Hydroxide/Mg Hydroxide (Milk Of Magnesia Liq) 30 ml PO Q12H PRN PRN Reason: Mild Constipation Aripiprazole (Abilify) 10 mg PO HS [facility] Baclofen (Lioresal) 10 mg PO TID PRN PRN Reason: MUSCLE Pain Last Admin: 07/28/18 14:41 Dose: 10 mg Bisacodyl (Dulcolax Supp) 10 mg RECTAL DAILY PRN PRN Reason: SEVERE CONSITIPATION Bupropion HCl (Wellbutrin Sr) 150 mg PO DAILY [facility] Last Admin: 07/28/18 14:37 Dose: 150 mg Diphenhydramine HCl (Benadryl) 50 mg PO HS [facility] Last Admin: 07/27/18 20:56 Dose: 50 mg Famotidine (Pepcid) 20 mg PO BID [facility] Last Admin: 07/28/18 09:00 Dose: 20 mg Furosemide (Lasix) 20 mg PO DAILY [facility] Hydroxyzine HCl (Atarax) 25 mg PO TID PRN PRN Reason: Itching Last Admin: 07/28/18 14:41 Dose: 25 mg Ibuprofen (Motrin) 800 mg PO Q8H PRN PRN Reason: Acute Pain Last Admin: 07/27/18 19:07 Dose: 800 mg Lactulose (Lactulose Liq) 30 ml PO DAILY PRN PRN Reason: SEVERE CONSITIPATION Nicotine (Habitrol 21 Mg Patch.24 Hr) 1 patch T-DERMAL DAILY [facility] Last Admin: 07/28/18 14:37 Dose: 1 patch Patch Removal (Remove Old Patch) 1 each T-DERMAL HS [facility] Potassium Chloride (Klor-Con 10) 10 meq PO DAILY [facility] Prednisone (Deltasone) 15 mg PO BID [facility] Last Admin: 07/28/18 14:38 Dose: 15 mg Senna/Docusate Sodium (Tammy-Colace) 1 tab PO BID [facility] Last Admin: 07/28/18 09:00 Dose: 1 tab Sennosides (Senokot) 17.2 mg PO Q12H PRN PRN Reason: Moderate Constipation Allergies Allergy/AdvReac Type Severity Reaction Status Date / Time shellfish derived Allergy Intermediate Swelling Verified 07/14/18 11:02 Home Medications Medication Instructions Recorded Confirmed Type baclofen 10 mg PO TID PRN 07/14/18 07/27/18 History hydroxyzine HCl 25 mg PO TID PRN 07/14/18 07/27/18 History ranitidine HCl 150 mg PO BID 07/14/18 07/27/18 History Results - Labs CBC & Chem 7: 07/28/18 06:02 Labs: Laboratory Results - last 24 hr 07/28/18 07/28/18 06:02 06:02 Sodium 139 Potassium 3.9 Chloride 106 Carbon Dioxide 25.8 Anion Gap 7 BUN 15 Creatinine 0.62 Estimated GFR Greater than 89 Random Glucose 77 Hemoglobin A1c 5.7 Calcium 7.4 L* Calcium Adj for Albumin 8.5 Albumin 2.6 L Triglycerides 180 H Cholesterol 182 LDL Cholesterol, Calc 97 HDL Cholesterol 49.1 Cholesterol/HDL Ratio 3.70 Exam Vital signs: Vital Signs 07/27/18 16:41 07/28/18 05:00 Temperature 97.6 F 97.7 F Pulse Rate 113 H 86 Respiratory Rate 18 17 Blood Pressure 118/82 102/62 Pulse Oximetry 97 Intake & Output 07/27/18 07/28/18 07/28/18 18:59 06:59 18:59 Weight 75.296 kg Other: Date of Last Bowel Movement 07/27/18 07/27/18 Weight On Admission 75.296 kg Mental Status Examination Appearance: Appropriate Consciousness: Alert Orientation: x4 Motor Activity: Normal gait Speech: Unremarkable Language: Adequate Fund of Knowledge: Adequate Attention and Concentration: Adequate Memory: Unremarkable Mood: Sad Affect: Sad Thought Process & Associations: Intact Thought Content: Appropriate Hallucination Type: None Delusion Type: None Suicidal Ideation: Yes (He continues to endorse passive suicidal thoughts but denies active plan and contracts for safety in the hospital.) Suicidal Plan: No Suicidal Intention: No Homicidal Ideation: No Homicidal Plan: No Homicidal Intention: No Insight: Fair Judgment: Impulsive Assessment and Plan - Plan Plan: Estimated LOS: 7 days 1. Continue with admission to inpatient psychiatry at [facility]; convert to voluntary/competent legal status. 2. Routine unit precautions. 3. Comfort medications ordered for as needed treatment of constipation, heartburn, diarrhea, and mild pain. 4. Restart Abilify 10 mg at bedtime for treatment of bipolar disorder. 5. Start Wellbutrin XL 150 mg in the morning for treatment of depression. 6. Start nicotine patch 21 mg 1 patch per day. 7. Restart home medications to include prednisone 50 mg twice a day for rheumatoid arthritis. 8. Consult hospitalist for review of medical problems as well as his home meds and make adjustments as indicated. 9. Patient will participate in the unit programming to include group therapies , milieu therapy and recreational therapies. 10. Discharge planning: The patient is motivated for placement in a residential treatment center for dual diagnosis. Patient also complains of decreased ability to reliably handle his own ADLs as matured arthritic pain has worsened. Justification for Continued Inpatient Stay: The patient is a 52-year-old male with history of bipolar disorder as well as polysubstance abuse who was Jay acted after he presented to a local ER complaining of suicidal ideations with a plan to lay in front of a train. The patient is well-known to [facility] inpatient psychiatric unit from previous admissions this year. The patient has always responded well to inpatient stabilization but has failed to comply with his recovery program and ends up relapsing and returning with worsening mood. Patient reports that the Abilify has helped prevent episodes of karyna or mixed karyna but he is unsatisfied with the lack of antidepressant control. We discussed risks benefits side effects and alternatives and the patient chooses to try adjunctive treatment with Wellbutrin. The patient is sincerely motivated for treatment and recovery and there is no evidence of an imminent risk to harm of self or others therefore he will be allowed to sign in voluntarily.
--- NOTE | 2018-07-28 19:12 | P.CONIM ---
History of Present Illness Service: Hospitalist Consult date: 07/28/18 Reason for Consult: Medical management. Primary Care Provider: UNKNOWN Chief Complaint: Generalized pain History of Present Illness: Mr. Desai is a pleasant 52-year-old male with a history of rheumatoid arthritis who was admitted to psychiatric unit due to suicidal attempt. Hospital service was consulted for medical management. Patient reports abdominal distention and generalized pain. He does report having DVT/pulmonary embolism in September 2017. He was supposed to be on apixaban for anticoagulation. However due to lack of insurance, he has not been taking apixaban. Per chart review, I do not see any evidence of DVT or PE in 2016 or 2017. Some of the consult and admission notes do indicate pulmonary embolism and DVT in apparently patient was on apixaban 2.5 mg twice daily. This dosing is also not consistent with treatment for DVT or PE. At the time of this interview, patient is on room air. He denies any chest pain, shortness of breath, fever or chills. Denies any changes in bowel or bladder habits. Past medical history: Rheumatoid arthritis, patient reported DVT/PE Past surgical history: Knee surgery, appendectomy, tonsillectomy Social history: He is smokes about 1 pack a day. Denies using alcohol or illicit drugs. He does have a history of cocaine abuse. Family history: Hypertension in mother. Review of Systems Review of Systems: all other systems reviewed are negative [facility] Social History Social History Substance History: Active Abuse Second Hand Smoke Exposure: Yes Smoking Status: Current every day smoker Tobacco Type: Cigarettes How Often Do You Have a Drink Containing Alcohol: Monthly or less Recent Travel in [facility] within the Last 8 Weeks: No Recent Out of Country Travel within the Last 8 Weeks: No Substance Abuse Detail Crack/Cocaine: Substance Use Status: Active Route Used Substance Abuse: Inhalation Substance Frequency: "Relapsed once this month" Reason for Use: Calm Down Opiates: Substance Use Status: Sustained Remission Route Used Substance Abuse: Intravenously Substance Abuse Comment: "Pain relief" Reason for Use: Calm Down Alcohol: Substance Use Status: Active Route Used Substance Abuse: By Mouth Substance Frequency: "Relapsed once this month" Reason for Use: Calm Down Immunization History Tetanus Immunization: <5 Years Hx Influenza Vaccine This Season: No Medications and Allergies Allergies Allergy/AdvReac Type Severity Reaction Status Date / Time shellfish derived Allergy Intermediate Swelling Verified 07/14/18 11:02 Home Medications Medication Instructions Recorded Confirmed Type baclofen 10 mg PO TID PRN 07/14/18 07/27/18 History hydroxyzine HCl 25 mg PO TID PRN 07/14/18 07/27/18 History ranitidine HCl 150 mg PO BID 07/14/18 07/27/18 History Active Medications: Active Medications Al Hydrox/Mg Hydrox/Simethicone (Mag-Al Plus Susp Liq) 30 ml PO Q6H PRN PRN Reason: DYSPEPSIA Al Hydroxide/Mg Hydroxide (Milk Of Magnesia Liq) 30 ml PO Q12H PRN PRN Reason: Mild Constipation Aripiprazole (Abilify) 10 mg PO HS [facility] Baclofen (Lioresal) 10 mg PO TID PRN PRN Reason: MUSCLE Pain Last Admin: 07/28/18 14:41 Dose: 10 mg Bisacodyl (Dulcolax Supp) 10 mg RECTAL DAILY PRN PRN Reason: SEVERE CONSITIPATION Bupropion HCl (Wellbutrin Sr) 150 mg PO DAILY [facility] Last Admin: 07/28/18 14:37 Dose: 150 mg Diphenhydramine HCl (Benadryl) 50 mg PO HS [facility] Last Admin: 07/27/18 20:56 Dose: 50 mg Famotidine (Pepcid) 20 mg PO BID [facility] Last Admin: 07/28/18 09:00 Dose: 20 mg Furosemide (Lasix) 20 mg PO DAILY [facility] Hydroxyzine HCl (Atarax) 25 mg PO TID PRN PRN Reason: Itching Last Admin: 07/28/18 14:41 Dose: 25 mg Ibuprofen (Motrin) 800 mg PO Q8H PRN PRN Reason: Acute Pain Last Admin: 07/27/18 19:07 Dose: 800 mg Lactulose (Lactulose Liq) 30 ml PO DAILY PRN PRN Reason: SEVERE CONSITIPATION Nicotine (Habitrol 21 Mg Patch.24 Hr) 1 patch T-DERMAL DAILY [facility] Last Admin: 07/28/18 14:37 Dose: 1 patch Patch Removal (Remove Old Patch) 1 each T-DERMAL HS [facility] Potassium Chloride (Klor-Con 10) 10 meq PO DAILY [facility] Prednisone (Deltasone) 15 mg PO BID [facility] Last Admin: 07/28/18 14:38 Dose: 15 mg Senna/Docusate Sodium (Tammy-Colace) 1 tab PO BID [facility] Last Admin: 07/28/18 09:00 Dose: 1 tab Sennosides (Senokot) 17.2 mg PO Q12H PRN PRN Reason: Moderate Constipation Physical Exam Vital signs: Last Vital Signs Temp 97.7 F 07/28/18 05:00 Pulse 86 07/28/18 05:00 Resp 17 07/28/18 05:00 BP 102/62 07/28/18 05:00 Pulse Ox 97 07/27/18 16:41 Intake & Output 07/26/18 07/27/18 07/28/18 07/29/18 06:59 06:59 06:59 06:59 Weight 75.296 kg GENERAL: This is a well-nourished, well-developed patient, in no apparent distress. SKIN: No rashes, ecchymoses or lesions. Warm and dry. HEAD: Atraumatic. Normocephalic. No temporal or scalp tenderness. EYES: Pupils equal round and reactive. No injection or drainage. ENT: Nose without bleeding, purulent drainage or septal hematoma. Airway patent. NECK: Trachea midline. No lymphadenopathy. Supple, nontender, no meningeal signs. CARDIOVASCULAR: Regular rate and rhythm without murmurs, gallops, or rubs. No JVD. RESPIRATORY: Clear to auscultation. Breath sounds equal bilaterally. No wheezes , rales, or rhonchi. GASTROINTESTINAL: Abdomen soft, mildly tender to palpation, nondistended. No guarding. MUSCULOSKELETAL: Extremities without clubbing, cyanosis, or edema. NEUROLOGICAL: Awake and alert. Cranial nerves II through XII intact. No focal neurological deficits. Normal speech. Results Labs CBC & Chem 7: 07/28/18 06:02 Assessment and Plan Plan Mr. Desai is a pleasant 52-year-old male with a history of rheumatoid arthritis, patient reported DVT/PE who was admitted to the psychiatric unit due to suicidal attempt. Hospital service was consulted for medical management. At the time of this interview, patient complains of some abdominal discomfort as well as generalized pain. Abdominal discomfort We will obtain a KUB. Keep bowel regimen in place. Avoid NSAIDs History of DVT/PE Patient reports pulmonary embolism in September 2017 and apparently he was on apixaban. Previous notes indicate patient was on apixaban 2.5 mg p.o. twice daily. These dosing is inappropriate for DVT or PE for this patient. I could not identify any imaging study to indicate DVT or PE. Patient is homeless and medication compliance is very questionable. Since he has been off anticoagulation and last CTA in May 2018 was negative for any PE, it would probably be reasonable to not continue any anticoagulation for him. Rheumatoid arthritis GERD Continue home medication prednisone, famotidine. Other: We will obtain CBC. BMP on 07/28/2018 was largely unremarkable. Full code. Ambulation. Thank you for the consult. We will continue to follow this patient with you.
[2018-07-28] MEDS: ARIPiprazole 10 MG Tablet PO SCH (21:04)
[2018-07-29 07:28] LABS: Baso % (Auto) 0.2 % (0.0-2.0); Eos % (Auto) 0.1 % (0.0-4.0); Hematocrit 41.1 % (39.0-51.0); Hemoglobin 13.5 gm/dL (13.0-17.0); Lymph # (Auto) 2.8 th/mm3 (1.0-4.8); Lymph % (Auto) 18.5 % (9.0-44.0); Mean Corpuscular HGB Conc 32.9 % (32.0-36.0); Mean Corpuscular Hemoglobin 27.1 pg (27.0-34.0); Mean Corpuscular Volume 82.4 fL (80.0-100.0); Mean Platelet Volume 7.5 fL (7.0-11.0); Mono # (Auto) 0.6 th/mm3 (0.0-0.9); Mono % (Auto) 3.9 % (0.0-8.0); Neut # (Auto) 11.9 th/mm3 (1.8-7.7); Neut % (Auto) 77.3 % (16.0-70.0); Platelet Count 354 th/mm3 (150-450); Red Blood Count 4.99 mil/mm3 (4.50-5.90); Red Cell Distribution Width 18.9 % (11.6-17.2); White Blood Count 15.4 th/mm3 (4.0-11.0)
[2018-07-29] MEDS: buPROPion 150 MG 12 HR Tablet PO SCH (08:32)
[2018-07-29] MEDS: Furosemide 20 MG Tablet PO SCH (08:32)
[2018-07-29] MEDS: Baclofen 10 MG Tablet PO PRN ×2 (08:32→18:28)
[2018-07-29] MEDS: Senna/Docusate Sodium 8.6/50 MG Tablet PO SCH ×3 (08:32→21:02)
[2018-07-29] MEDS: predniSONE 5 MG Tablet PO SCH ×2 (08:32→20:58)
[2018-07-29] MEDS: Famotidine 20 MG Tablet PO SCH ×2 (08:32→21:00)
--- NOTE | 2018-07-29 10:47 | XR ---
EXAM DATE: 07/29/2018 10:37 AM EST AGE/SEX: 52 years / Male INDICATIONS: Abdominal pain. CLINICAL DATA: This is the patient's initial encounter. Patient reports that signs and symptoms have been present for 3 days and indicates a pain score of 8/10. MEDICAL/SURGICAL HISTORY: None. None. COMPARISON: [facility], CT ABDOMEN & PELVIS W CONTRAST, 05/10/2018. . FINDINGS: 2 supine frontal views of the abdomen demonstrate air within bowel in a nonobstructive pattern. Ther e is a 5 mm density overlying the right mid kidney and a 5 mm ovoid density overlying the left lower pole kidney corresponding with renal stones documented on the prior CT. Ovoid area of high density in the left upper quadrant is of uncertain etiology. No organomegaly or abnormal mass effect is appreci ated. Lung bases demonstrate no significant abnormality. There are degenerative changes throughout th e thoracic and lumbar spine. No acute osseous abnormality is seen. CONCLUSION: 1. No acute abdominal abnormality is identified. 2. Stable 5 mm bilateral nonobstructing renal stones. Electronically signed by: Steve Samson MD Board Certified Radiologist 07/29/2018 10:46 AM EST
--- NOTE | 2018-07-29 13:02 | P.PNPSY ---
Subjective Chief Complaint: depression with suicidal ideations and plan Remarks: Patient seen for follow-up, chart reviewed, patient discussed with nursing staff ; we reviewed the patient's mood, thoughts, and behaviors from overnight and this morning. Nurse reports that the patient slept approximately 8 hours overnight. He has been polite and compliant with treatment. He has denied suicidal ideations or hallucinations. Patient was seen at bedside after breakfast. He reports that he did indeed sleep well but he continues to complain of arthritic pain as well as lower abdominal pain. Patient did have a KUB study ordered which was normal except for stable renal calculi. The patient reports that he is motivated for a residential treatment center for dual diagnosis patients and he has found one called [facility] in [place]. Review of Systems Constitutional: Reports body ache(s), Denies anorexia, Denies daytime sleepiness Gastrointestinal: Reports abdominal pain Musculoskeletal: Reports joint pain Mental Status Examination Appearance: Appropriate Consciousness: Alert Orientation: x4 Motor Activity: Normal gait Speech: Unremarkable Language: Adequate Fund of Knowledge: Adequate Attention and Concentration: Adequate Memory: Unremarkable Mood: Sad Affect: Sad Thought Process & Associations: Intact Thought Content: Appropriate Hallucination Type: None Delusion Type: None Suicidal Ideation: Yes (He continues to endorse passive suicidal thoughts but denies active plan and contracts for safety in the hospital.) Suicidal Plan: No Suicidal Intention: No Homicidal Ideation: No Homicidal Plan: No Homicidal Intention: No Insight: Fair Judgment: Impulsive Assessment and Plan - Assessment (1) Bipolar depression Code(s): F31.30 - Bipolar disorder, current episode depressed, mild or moderate severity, unspecified Status: Acute (2) Cocaine abuse Code(s): F14.10 - Cocaine abuse, uncomplicated Status: Acute (3) Anxiety Code(s): F41.9 - Anxiety disorder, unspecified Status: Acute - Plan Plan: Initial assessment and plan 07/28/2018, estimated LOS: 7 days 1. Continue with admission to inpatient psychiatry at [facility]; convert to voluntary/competent legal status. 2. Routine unit precautions. 3. Comfort medications ordered for as needed treatment of constipation, heartburn, diarrhea, and mild pain. 4. Restart Abilify 10 mg at bedtime for treatment of bipolar disorder. 5. Start Wellbutrin XL 150 mg in the morning for treatment of depression. 6. Start nicotine patch 21 mg 1 patch per day. 7. Restart home medications to include prednisone 50 mg twice a day for rheumatoid arthritis. 8. Consult hospitalist for review of medical problems as well as his home meds and make adjustments as indicated. 9. Patient will participate in the unit programming to include group therapies , milieu therapy and recreational therapies. 10. Discharge planning: The patient is motivated for placement in a residential treatment center for dual diagnosis. Patient also complains of decreased ability to reliably handle his own ADLs as matured arthritic pain has worsened. 07/29/2018: Good response to treatment, the patient is denying active suicidal ideations and he is reporting improved hope fullness as he continues to work with staff for safe discharge. He has tolerated the restart of his Abilify and Wellbutrin. He continues to complain of arthritic pain as well as abdominal pain but no acute process has been found by exam and studies up to this point. Plan: 1. Continue inpatient stabilization and treatment, voluntary status. 2. Discharge planning: Patient has bipolar disorder as well as substance abuse difficulties with recent relapse despite treatment and would benefit from a residential coverage program. Justification for Continued Inpatient Stay: Patient remains an elevated risk for self-harm and will require further inpatient stabilization and preparation of a safe discharge plan. Moving patient to a less restrictive environment at this time may result in decompensation.
[2018-07-29 13:09] LABS: Bilirubin,Urine Negative (Negative); Clarity,Urine Clear (Clear); Color,Urine Straw (Yellw/Straw); Glucose,Urine (UA) Negative (Negative); Leukocyte Esterase,Urine Negative (Negative); Mucus,Urine Few /lpf (Occasional); Nitrite,Urine Negative (Negative); Specific Gravity,Urine 1.008 (1.002-1.035)
[2018-07-29] MEDS ORDERED: Ibuprofen 600 MG Tablet PO PRN (18:07)
--- NOTE | 2018-07-29 18:09 | P.PNIM ---
Subjective Interval history: Follow-up on patient with abdominal discomfort. Patient seen and examined. Patient has no complaints of abdominal pain at this time. KUB reviewed with patient, unremarkable. Patient does report back spasms for which he states he takes baclofen as needed. He has an extensive history of multiple compression fractures in the thoracic and lumbar spine. Patient denies any other acute medical complaints or concerns. Physical Exam Vital signs: Last Vital Signs Temp 97.8 F 07/29/18 06:44 Pulse 94 H 07/29/18 06:44 Resp 18 07/29/18 06:44 BP 103/71 07/29/18 06:44 Pulse Ox 95 07/29/18 06:44 Intake & Output 07/27/18 07/28/18 07/29/18 07/30/18 06:59 06:59 06:59 06:59 Weight 75.296 kg Narrative: GENERAL: This is a well-nourished, well-developed male patient, no acute distress. Awake and alert. SKIN: No rashes, ecchymoses or lesions. Warm and dry. HEENT: Atraumatic. Normocephalic. No temporal or scalp tenderness. Pupils equal round and reactive. No injection or drainage. No nasal drainage. Airway patent. NECK: Trachea midline. CARDIOVASCULAR: Regular rate and rhythm without murmurs, gallops, or rubs. RESPIRATORY: Clear to auscultation. Breath sounds equal bilaterally. No wheezes , rales, or rhonchi. GASTROINTESTINAL: Abdomen soft, mildly tender to palpation, nondistended. No guarding. MUSCULOSKELETAL: Extremities without clubbing, cyanosis, or edema. + Paraspinal muscular tenderness to palpation along thoracic and lumbar spine. NEUROLOGICAL: Awake and alert. Cranial nerves II through XII intact. No focal neurological deficits. Able to move all extremities spontaneously. Normal speech. PSYCHIATRIC: Calm and cooperative. Results Labs CBC & Chem 7: 07/29/18 06:29 07/28/18 06:02 Imaging Imaging: Impressions Abdomen X-Ray 07/29/18 08:00 CONCLUSION: 1. No acute abdominal abnormality is identified. 2. Stable 5 mm bilateral nonobstructing renal stones. Assessment and Plan (1) Bipolar depression: Code(s): F31.30 - Bipolar disorder, current episode depressed, mild or moderate severity , unspecified Status: Acute (2) Cocaine abuse: Code(s): F14.10 - Cocaine abuse, uncomplicated Status: Acute (3) Anxiety: Code(s): F41.9 - Anxiety disorder, unspecified Status: Acute Plan Mr. Desai is a pleasant 52-year-old male with a history of rheumatoid arthritis, patient reported DVT/PE who was admitted to the psychiatric unit due to suicidal attempt. Hospital service was consulted for medical management. At the time of this interview, patient complains of some abdominal discomfort as well as generalized pain. Abdominal discomfort Patient has no complaints of abdominal pain at this time -KUB unremarkable except for 5 mm bilateral nonobstructing renal stones, images reviewed by me Keep bowel regimen in place Avoid NSAIDs Leukocytosis, appears chronic, suspect secondary to chronic steroid use No source of infection Patient is afebrile. He does not appear toxic. UA neg -Monitor History of DVT/PE Patient reports pulmonary embolism in September 2017 and apparently he was on apixaban. Previous notes indicate patient was on apixaban 2.5 mg p.o. twice daily. These dosing is inappropriate for DVT or PE for this patient. I could not identify any imaging study to indicate DVT or PE. Patient is homeless and medication compliance is very questionable. Since he has been off anticoagulation and last CTA in May 2018 was negative for any PE, it would probably be reasonable to not continue any anticoagulation for him. Rheumatoid arthritis GERD Continue home medication prednisone, famotidine. Back spasms Chronic back pain Hx of multiple compression fractures in thoracic and lumbar spine, suspect secondary to chronic steroid use MRI 05/2018 reviewed -Continue patient on baclofen and Motrin as needed DVT prophylaxis -Patient is ambulatory Patient appears stable from hospitalist standpoint. [facility] will sign off. Please reconsult if needed. Progress Note: Quality VTE Deep Vein Thrombosis/Pulmonary Embolism Present on Admission: No
[2018-07-29] MEDS: ARIPiprazole 10 MG Tablet PO SCH (20:59)
[2018-07-30] MEDS: Baclofen 10 MG Tablet PO PRN ×2 (09:45→21:54)
[2018-07-30] MEDS: predniSONE 5 MG Tablet PO SCH ×2 (09:45→21:46)
[2018-07-30] MEDS: buPROPion 150 MG 12 HR Tablet PO SCH (09:49)
[2018-07-30] MEDS: Furosemide 20 MG Tablet PO SCH (09:49)
[2018-07-30] MEDS: Famotidine 20 MG Tablet PO SCH ×2 (09:50→21:46)
[2018-07-30] MEDS: Senna/Docusate Sodium 8.6/50 MG Tablet PO SCH ×2 (09:50→21:53)
--- NOTE | 2018-07-30 10:02 | P.PNPSY ---
Subjective Chief Complaint: depression with suicidal ideations and plan Remarks: Patient seen for follow-up, chart reviewed, patient discussed with nursing staff ; we reviewed the patient's mood, thoughts, and behaviors from overnight and this morning. Nursing reports the patient has remained calm and cooperative. He is isolating mostly to his bed with complaints of pain. His interactions within the milieu have been appropriate. The patient was seen at bedside this morning after breakfast. He reports worsening pain after about 5 minutes when he is up and out of bed and tries to walk or sit within the milieu. He reports overall that his pain is decreasing and his mood is improving. He rates his pain at 6 out of 10. He rates his depression as 5 out of 10 and anxiety is 3 out of 10. He remains motivated for possible placement at a recovery center called [facility]. Mental Status Examination Appearance: Appropriate Consciousness: Alert Orientation: x4 Motor Activity: Normal gait Speech: Unremarkable Language: Adequate Fund of Knowledge: Adequate Attention and Concentration: Adequate Memory: Unremarkable Mood: Sad Affect: Sad Thought Process & Associations: Intact Thought Content: Appropriate Hallucination Type: None Delusion Type: None Suicidal Ideation: Yes (He continues to endorse passive suicidal thoughts but denies active plan and contracts for safety in the hospital.) Suicidal Plan: No Suicidal Intention: No Homicidal Ideation: No Homicidal Plan: No Homicidal Intention: No Insight: Fair Judgment: Impulsive Assessment and Plan - Assessment (1) Bipolar depression Code(s): F31.30 - Bipolar disorder, current episode depressed, mild or moderate severity, unspecified Status: Acute (2) Cocaine abuse Code(s): F14.10 - Cocaine abuse, uncomplicated Status: Acute (3) Anxiety Code(s): F41.9 - Anxiety disorder, unspecified Status: Acute - Plan Plan: Initial assessment and plan 07/28/2018, estimated LOS: 7 days 1. Continue with admission to inpatient psychiatry at [facility]; convert to voluntary/competent legal status. 2. Routine unit precautions. 3. Comfort medications ordered for as needed treatment of constipation, heartburn, diarrhea, and mild pain. 4. Restart Abilify 10 mg at bedtime for treatment of bipolar disorder. 5. Start Wellbutrin XL 150 mg in the morning for treatment of depression. 6. Start nicotine patch 21 mg 1 patch per day. 7. Restart home medications to include prednisone 50 mg twice a day for rheumatoid arthritis. 8. Consult hospitalist for review of medical problems as well as his home meds and make adjustments as indicated. 9. Patient will participate in the unit programming to include group therapies , milieu therapy and recreational therapies. 10. Discharge planning: The patient is motivated for placement in a residential treatment center for dual diagnosis. Patient also complains of decreased ability to reliably handle his own ADLs as matured arthritic pain has worsened. 07/29/2018: Good response to treatment, the patient is denying active suicidal ideations and he is reporting improved hope fullness as he continues to work with staff for safe discharge. He has tolerated the restart of his Abilify and Wellbutrin. He continues to complain of arthritic pain as well as abdominal pain but no acute process has been found by exam and studies up to this point. Plan: 1. Continue inpatient stabilization and treatment, voluntary status. 2. Discharge planning: Patient has bipolar disorder as well as substance abuse difficulties with recent relapse despite treatment and would benefit from a residential coverage program. 07/30/2018: Continued good response to treatment but patient will require continued inpatient stabilization to ensure that his medications reach therapeutic levels and are tolerated and mood and behavior remained stable. Justification for Continued Inpatient Stay: Patient remains an elevated risk for self-harm and will require further inpatient stabilization and preparation of a safe discharge plan. Moving patient to a less restrictive environment at this time may result in decompensation.
[2018-07-30] MEDS: ARIPiprazole 10 MG Tablet PO SCH (21:46)
[2018-07-31] MEDS: buPROPion 150 MG 12 HR Tablet PO SCH (09:10)
[2018-07-31] MEDS: predniSONE 5 MG Tablet PO SCH ×2 (09:10→20:20)
[2018-07-31] MEDS: Famotidine 20 MG Tablet PO SCH ×2 (09:10→20:20)
[2018-07-31] MEDS: Furosemide 20 MG Tablet PO SCH (09:10)
[2018-07-31] MEDS: Senna/Docusate Sodium 8.6/50 MG Tablet PO SCH ×2 (09:11→20:20)
[2018-07-31] MEDS: Baclofen 10 MG Tablet PO PRN ×2 (09:56→20:24)
--- NOTE | 2018-07-31 14:06 | P.PNPSY ---
Subjective Chief Complaint: depression with suicidal ideations and plan Remarks: Patient seen for follow-up, chart reviewed, patient discussed with nursing staff ; we reviewed the patient's mood, thoughts, and behaviors from overnight and this morning. Nurse reports that the patient slept 7 hours overnight. He continues to complain of pain but was able to spend time in recreational therapy and he also took a shower. Patient was seen lying in bed after breakfast. He reports that he will continue to try to make efforts to get out of bed and participate in groups as long as he can tolerate the pain. Patient reports he is working with the drug abuse social worker to find placement in hopes to be discharged by Thursday. Review of Systems All other systems reviewed negative except as stated in HPI Mental Status Examination Appearance: Appropriate Consciousness: Alert Orientation: x4 Motor Activity: Normal gait Speech: Unremarkable Language: Adequate Fund of Knowledge: Adequate Attention and Concentration: Adequate Memory: Unremarkable Mood: Sad Affect: Sad Thought Process & Associations: Intact Thought Content: Appropriate Hallucination Type: None Delusion Type: None Suicidal Ideation: Yes (He continues to endorse passive suicidal thoughts but denies active plan and contracts for safety in the hospital.) Suicidal Plan: No Suicidal Intention: No Homicidal Ideation: No Homicidal Plan: No Homicidal Intention: No Insight: Fair Judgment: Impulsive Assessment and Plan - Assessment (1) Bipolar depression Code(s): F31.30 - Bipolar disorder, current episode depressed, mild or moderate severity, unspecified Status: Acute (2) Cocaine abuse Code(s): F14.10 - Cocaine abuse, uncomplicated Status: Acute (3) Anxiety Code(s): F41.9 - Anxiety disorder, unspecified Status: Acute - Plan Plan: Initial assessment and plan 07/28/2018, estimated LOS: 7 days 1. Continue with admission to inpatient psychiatry at [facility]; convert to voluntary/competent legal status. 2. Routine unit precautions. 3. Comfort medications ordered for as needed treatment of constipation, heartburn, diarrhea, and mild pain. 4. Restart Abilify 10 mg at bedtime for treatment of bipolar disorder. 5. Start Wellbutrin XL 150 mg in the morning for treatment of depression. 6. Start nicotine patch 21 mg 1 patch per day. 7. Restart home medications to include prednisone 50 mg twice a day for rheumatoid arthritis. 8. Consult hospitalist for review of medical problems as well as his home meds and make adjustments as indicated. 9. Patient will participate in the unit programming to include group therapies , milieu therapy and recreational therapies. 10. Discharge planning: The patient is motivated for placement in a residential treatment center for dual diagnosis. Patient also complains of decreased ability to reliably handle his own ADLs as matured arthritic pain has worsened. 07/29/2018: Good response to treatment, the patient is denying active suicidal ideations and he is reporting improved hope fullness as he continues to work with staff for safe discharge. He has tolerated the restart of his Abilify and Wellbutrin. He continues to complain of arthritic pain as well as abdominal pain but no acute process has been found by exam and studies up to this point. Plan: 1. Continue inpatient stabilization and treatment, voluntary status. 2. Discharge planning: Patient has bipolar disorder as well as substance abuse difficulties with recent relapse despite treatment and would benefit from a residential coverage program. 07/30/2018: Continued good response to treatment but patient will require continued inpatient stabilization to ensure that his medications reach therapeutic levels and are tolerated and mood and behavior remained stable. 07/31/2018: Good response to treatment to include improvements with pain control ; the patient motivation and hopefulness is improved as evidenced by his active participation in his recovery. Continue current inpatient treatment plan and anticipate discharge on Thursday. Justification for Continued Inpatient Stay: Patient remains an elevated risk for self-harm and will require further inpatient stabilization and preparation of a safe discharge plan. Moving patient to a less restrictive environment at this time may result in decompensation.
[2018-07-31] MEDS: ARIPiprazole 10 MG Tablet PO SCH (20:20)
[2018-08-01] MEDS: buPROPion 150 MG 12 HR Tablet PO SCH (09:05)
[2018-08-01] MEDS: Senna/Docusate Sodium 8.6/50 MG Tablet PO SCH ×2 (09:06→20:48)
[2018-08-01] MEDS: Famotidine 20 MG Tablet PO SCH ×2 (09:06→20:47)
[2018-08-01] MEDS: Baclofen 10 MG Tablet PO PRN ×2 (09:06→20:56)
[2018-08-01] MEDS: predniSONE 5 MG Tablet PO SCH ×2 (09:06→20:47)
[2018-08-01] MEDS: Furosemide 20 MG Tablet PO SCH (09:07)
--- NOTE | 2018-08-01 10:34 | P.PNPSY ---
Subjective Chief Complaint: depression with suicidal ideations and plan Remarks: Reviewed electronic medical record and discussed with nurse. Rounded with LUKE Diop. Patient in his room in bed. Nursing reports that he is very seclusive. Endorses that he also has a problem with alcohol. Discussed Medication Assisted Treatment Program at [facility] on Outpatient basis. Patient verbalizes that he needs help and that he wants to follow up after discharge this time. He is cooperative and calm. Pleasant and quiet. Sleeping and eating well. Denies SI/HI. Review of Systems All other systems reviewed negative except as stated in HPI Mental Status Examination Appearance: Appropriate Consciousness: Alert Orientation: x4 Motor Activity: Normal gait Speech: Unremarkable Language: Adequate Fund of Knowledge: Adequate Attention and Concentration: Adequate Memory: Unremarkable Mood: Appropriate Affect: Appropriate Thought Process & Associations: Intact Thought Content: Appropriate Hallucination Type: None Delusion Type: None Suicidal Ideation: No Suicidal Plan: No Suicidal Intention: No Homicidal Ideation: No Homicidal Plan: No Homicidal Intention: No Insight: Fair Judgment: Impulsive Assessment and Plan - Assessment (1) Bipolar depression Code(s): F31.30 - Bipolar disorder, current episode depressed, mild or moderate severity, unspecified Status: Acute (2) Cocaine abuse Code(s): F14.10 - Cocaine abuse, uncomplicated Status: Acute (3) Alcohol abuse Code(s): F10.10 - Alcohol abuse, uncomplicated Status: Acute - Plan Plan: 08/01/18 continue current treatment plan. From Dr. Carballo : Initial assessment and plan 07/28/2018, estimated LOS: 7 days 1. Continue with admission to inpatient psychiatry at [facility]; convert to voluntary/competent legal status. 2. Routine unit precautions. 3. Comfort medications ordered for as needed treatment of constipation, heartburn, diarrhea, and mild pain. 4. Restart Abilify 10 mg at bedtime for treatment of bipolar disorder. 5. Start Wellbutrin XL 150 mg in the morning for treatment of depression. 6. Start nicotine patch 21 mg 1 patch per day. 7. Restart home medications to include prednisone 50 mg twice a day for rheumatoid arthritis. 8. Consult hospitalist for review of medical problems as well as his home meds and make adjustments as indicated. 9. Patient will participate in the unit programming to include group therapies , milieu therapy and recreational therapies. 10. Discharge planning: The patient is motivated for placement in a residential treatment center for dual diagnosis. Patient also complains of decreased ability to reliably handle his own ADLs as matured arthritic pain has worsened. 07/29/2018: Good response to treatment, the patient is denying active suicidal ideations and he is reporting improved hope fullness as he continues to work with staff for safe discharge. He has tolerated the restart of his Abilify and Wellbutrin. He continues to complain of arthritic pain as well as abdominal pain but no acute process has been found by exam and studies up to this point. Plan: 1. Continue inpatient stabilization and treatment, voluntary status. 2. Discharge planning: Patient has bipolar disorder as well as substance abuse difficulties with recent relapse despite treatment and would benefit from a residential coverage program. 07/30/2018: Continued good response to treatment but patient will require continued inpatient stabilization to ensure that his medications reach therapeutic levels and are tolerated and mood and behavior remained stable. 07/31/2018: Good response to treatment to include improvements with pain control ; the patient motivation and hopefulness is improved as evidenced by his active participation in his recovery. Continue current inpatient treatment plan and anticipate discharge on Thursday. Justification for Continued Inpatient Stay: Moving patient to a less restrictive environment may result in his decompensation.
[2018-08-01] MEDS: ARIPiprazole 10 MG Tablet PO SCH (20:48)
[2018-08-02 05:54] VITALS: BP 104/58; PULSE 57; RESP 18; TEMP 98; O2SAT 100
[2018-08-02] MEDS: predniSONE 5 MG Tablet PO SCH (09:34)
[2018-08-02] MEDS: Furosemide 20 MG Tablet PO SCH (09:34)
[2018-08-02] MEDS: Famotidine 20 MG Tablet PO SCH (09:35)
[2018-08-02] MEDS: buPROPion 150 MG 12 HR Tablet PO SCH (09:35)
[2018-08-02] MEDS: Senna/Docusate Sodium 8.6/50 MG Tablet PO SCH (09:35)
--- NOTE | 2018-08-02 12:31 | P.DSPSY ---
Psychiatry Discharge Summary Inpatient Psychiatric care?: Yes Advance Directives: No Mental Health Advance Directive: No Health Care Proxy: No - Admission Admission Date: July 27, 2018 16:30 - Admission Diagnosis (1) Bipolar depression Code(s): F31.30 - Bipolar disorder, current episode depressed, mild or moderate severity, unspecified (2) Cocaine abuse Code(s): F14.10 - Cocaine abuse, uncomplicated (3) Anxiety Code(s): F41.9 - Anxiety disorder, unspecified Brief History: The patient is a 52-year-old male with a history of bipolar disorder and substance use disorders who initially presented to a local emergency department complaining of suicidal ideations with a plan to lay down on the railroad tracks. The patient reports stress from recent relapse on alcohol and cocaine and this led to him being "kicked out of the recovery road" and he became acutely hopeless and suicidal. The patient was medically cleared and transferred to the [facility] inpatient psych for further evaluation and treatment. Upon evaluation this morning patient reports "I am still very depressed I am bummed out because I cannot walk due to my arthritis I cannot take care of myself and I cannot work it is all very overwhelming." The patient reports that he does live independently but it is a struggle and his family and confucianist have been helping him pay the rent. He acknowledges being "caught in a vicious cycle of my mood and pain and using drugs to try to make me feel better but it only makes it worse." As for the patient's mood, the patient reports worsening depressed mood over the last couple weeks in association with restless sleep decreased interest and decreased energy, feelings of guilt and hopelessness, and intermittent thoughts of ending his life. As for episodes of karyna, the patient reports last episode of a expansive mood state was approximately 1 year ago. He reports that these mood states have occurred without the use of stimulants and are associated with a decreased need for sleep and increased goal-directed activity and reckless behaviors. As for anxiety, the patient denies any history of recurrent anxiety attacks or excessive worries or reliving of past traumas. As for psychosis, the patient denies any history of auditory or visual hallucinations. He does admit to interpersonal paranoia that is likely likely associated with his stimulant use. Past psychiatric history: Past Diagnoses: Bipolar 1 disorder Hospitalizations: The patient was admitted to [facility] psychiatric unit in May 2018 and then in June 2018. Patient presented to the emergency room for admission on 14 July but was referred for detox. He was returned to the unit last night as a transfer from an outside ER. The patient reports that previous to May 2018 his only other psychiatric hospitalizations were in 2010. Suicidal behavior: Patient reports 3 past suicide attempts the last being in May 2018 by an overdose. The patient does not have any history of self- injurious behaviors. Past psychotropic medication trials: The patient has poor recall of past psychotropic medications but he does acknowledge taking Seroquel, Atarax, and most recently Abilify. The patient complains of lack of efficacy of the Abilify to help with his depression. Outpatient MH treatment: Patient is followed by [facility] Substance Use Treatment: Patient was recently discharged from a residential treatment program due to his relapse. Abuse/assault history: Patient denies Family psychiatric history: Patient reports that his mother suffers from a mood disorder and is on gabapentin. He denies any family history of suicides. Psychosocial history: Patient was born and raised in [place] [facility] [place]. He was raised only by his mother and does not know his father. He had no siblings. He graduated high school and went on to get an associates degree in [employer]. 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 He reports that he cannot work now due to his rheumatoid arthritis. Patient reports he has been for 25 years but one year ago. He reports that his and 5 kids live in [place] and that she has already started dating other men. The patient has no history of serving in the and he denies access to firearms. As for legal history, the patient admits to a possession charge 30 years ago but no current legal problems per Substance Use history: Tobacco use: Patient smokes 1 pack/day for approximately 30 years Alcohol use: Patient reports that he last used alcohol on a regular basis 6 months ago. His peak use was 1/5 of vodka a day +12 beers. Patient reports using only sporadically in the last 6 months but he did admit to using on the day prior to admission. Cannabis use: Denies Stimulant use: Patient reports intermittent cocaine and amphetamine use over the last 20 years. He last used cocaine on July 14, 2018. Opiate use: Patient reports only rare use of heroin and last use 1 year ago. Prescription drug abuse: Patient denies Tobacco Use In Past 30 Days: Yes How Often Do You Have a Drink Containing Alcohol: Monthly or less Hospital Course: Initial assessment and plan 07/28/2018, estimated LOS: 7 days 1. Continue with admission to inpatient psychiatry at [facility]; convert to voluntary/competent legal status. 2. Routine unit precautions. 3. Comfort medications ordered for as needed treatment of constipation, heartburn, diarrhea, and mild pain. 4. Restart Abilify 10 mg at bedtime for treatment of bipolar disorder. 5. Start Wellbutrin XL 150 mg in the morning for treatment of depression. 6. Start nicotine patch 21 mg 1 patch per day. 7. Restart home medications to include prednisone 50 mg twice a day for rheumatoid arthritis. 8. Consult hospitalist for review of medical problems as well as his home meds and make adjustments as indicated. 9. Patient will participate in the unit programming to include group therapies , milieu therapy and recreational therapies. 10. Discharge planning: The patient is motivated for placement in a residential treatment center for dual diagnosis. Patient also complains of decreased ability to reliably handle his own ADLs as matured arthritic pain has worsened. 07/29/2018: Good response to treatment, the patient is denying active suicidal ideations and he is reporting improved hope fullness as he continues to work with staff for safe discharge. He has tolerated the restart of his Abilify and Wellbutrin. He continues to complain of arthritic pain as well as abdominal pain but no acute process has been found by exam and studies up to this point. Plan: 1. Continue inpatient stabilization and treatment, voluntary status. 2. Discharge planning: Patient has bipolar disorder as well as substance abuse difficulties with recent relapse despite treatment and would benefit from a residential coverage program. 07/30/2018: Continued good response to treatment but patient will require continued inpatient stabilization to ensure that his medications reach therapeutic levels and are tolerated and mood and behavior remained stable. 07/31/2018: Good response to treatment to include improvements with pain control ; the patient motivation and hopefulness is improved as evidenced by his active participation in his recovery. Continue current inpatient treatment plan and anticipate discharge on Thursday. Justification for Continued Inpatient Stay: Patient remains an elevated risk for self-harm and will require further inpatient stabilization and preparation of a safe discharge plan. Moving patient to a less restrictive environment at this time may result in decompensation. 08/02/2018: Patient was seen and examined on the unit by psychiatry and also visited by counselor. Psychotropic medications were adjusted. There was a good response to treatment noted by nursing and provider observations, and the patient reported improvements in mood, anxiety, and there was no evidence of any suicidality or homicidality at time of discharge. Psychiatric follow-up as arranged by counselor. Residential placement also arranged by unit mental health social worker. Patient is also to follow up with primary care. I have counseled the patient to abstain from substances of abuse including cannabis and have counseled patient to return to the psychiatric emergency room for any concerning symptoms as part of a general safety plan. - Discharge Discharge Date: 08/02/18 Discharge Disposition: Assisted - Discharge Instructions Discharge Diet: Regular Diet - Discharge Time > 30 minutes Mental Status Examination Appearance: Appropriate Consciousness: Alert Orientation: x4 Motor Activity: Normal gait Speech: Unremarkable Language: Adequate Fund of Knowledge: Adequate Attention and Concentration: Adequate Memory: Unremarkable Mood: Appropriate Affect: Appropriate Thought Process & Associations: Intact Thought Content: Appropriate Hallucination Type: None Delusion Type: None Suicidal Ideation: No Suicidal Plan: No Suicidal Intention: No Homicidal Ideation: No Homicidal Plan: No Homicidal Intention: No Insight: Fair Judgment: Impulsive Discharge/Advance Care Plan - Results Vital Signs: Last Vital Signs Temp 98.0 F 08/02/18 05:53 Pulse 57 L 08/02/18 05:53 Resp 18 08/02/18 05:53 BP 104/58 L 08/02/18 05:53 Pulse Ox 100 08/02/18 05:53 Lab Results: Laboratory Results Hemoglobin A1c 5.7 % (4.3-6.0) 07/28/18 06:02 Triglycerides 180 mg/dL (42-150) H 07/28/18 06:02 Cholesterol 182 mg/dL (120-200) 07/28/18 06:02 LDL Cholesterol, Calc 97 mg/dL (0-99) 07/28/18 06:02 HDL Cholesterol 49.1 mg/dL (40.0-60.0) 07/28/18 06:02 Urine Culture Comments Culture not ind 07/29/18 12:00 Summary of Procedures: None ordered Imaging: ITS Impressions Abdomen X-Ray 07/29/18 08:00 CONCLUSION: 1. No acute abdominal abnormality is identified. 2. Stable 5 mm bilateral nonobstructing renal stones. Pending Results: None - Medications Number of antipsychotic medications at discharge: 1 - Discharge Care Plan Goals to Promote Your Health: * To prevent worsening of your condition and complications * To maintain your health at the optimal level Directions to Meet Your Goals: Take your medications as prescribed Follow your dietary instruction Follow activity as directed Keep your appointments as scheduled Take your immunizations and boosters as scheduled If your symptoms worsen call your PCP, if no PCP go to Urgent Care Center or Emergency Room For 02/03 questions related to your inpatient stay or results of tests pending at discharge, please contact Dr. Jaydon Mojica MD at Smoking is Dangerous to Your Health. Avoid second hand smoking
[2018-08-02] MEDS: Baclofen 10 MG Tablet PO PRN (15:07)
== END 2018-08-02 15:15 | disposition home or self-care (01) ==
LOC: H260 16:30
PROVIDERS: ADMIT Psychiatry & Neurology Psychiatry; ATTEND Psychiatry & Neurology Psychiatry
DX: F31.30 Bipolar disorder, current episode depressed, mild or moderate severity, unspecified; Z86.711 Personal history of pulmonary embolism; F17.210 Nicotine dependence, cigarettes, uncomplicated; R45.851 Suicidal ideations; M06.9 Rheumatoid arthritis, unspecified; D72.829 Elevated white blood cell count, unspecified; Z86.718 Personal history of other venous thrombosis and embolism; K21.9 Gastro-esophageal reflux disease without esophagitis; F11.10 Opioid abuse, uncomplicated; Z79.52 Long term (current) use of systemic steroids; F10.10 Alcohol abuse, uncomplicated; F14.10 Cocaine abuse, uncomplicated; F41.9 Anxiety disorder, unspecified; Z91.013 Allergy to seafood
CPT/HCPCS: 74000; 74018; 80048; 80061; 81001; 82040; 83036; 85025; J7506; J7512; Q0163